=== PATIENT | female | born 1955 | race Caucasian/White ===

== ENCOUNTER → 2016-09-16 | Outpatient (CLI) | payer OTHER ==
--- NOTE | 2016-09-16 15:33 | CARD ---
APPROVED REPORT EXAM: Two-dimensional and M-mode echocardiogram with Doppler and color Doppler. Other Information Quality : GoodHR: 59bpm Rhythm : Bradycardia INDICATION Cardiomaegaly RISK FACTORS Obesity 2D DIMENSIONS RVDd2.3 (2.9-3.5cm)Left Atrium(2D)3.8 (1.6-4.0cm) IVSd0.9 (0.7-1.1cm)Aortic Root(2D)2.6 (2.0-3.7cm) LVDd5.1 (3.9-5.9cm)LVOT Diameter2.2 (1.8-2.4cm) PWd0.8 (0.7-1.1cm)LVDs3.4 (2.5-4.0cm) FS (%) 33.8 %SV78.5 ml LVEF(%)62.3 (>50%) Aortic Valve AoV Peak Corey.144.2cm/sAoV VTI30.7cm AO Peak GR.8.3mmHgLVOT Peak Corey.96.2cm/s LVOT VTI 23.65cmAO Mean GR.4mmHg SAMANTHA (VMAX)2.36ar1UTJ (VTI)2.97cm2 Mitral Valve MV E Pryuzidi497.2cm/sMV DECEL [id number] MV A Namucgmd36.8cm/sMV E Mean Gr.2mmHg MV RXU60umS/A Ratio1.1 MV A Xuybxewk101khEOC (PHT)3.68cm2 TDI E/Lateral E'13.2E/Medial E'16.9 Pulmonary Valve PV Peak Gqklbbyu58.4cm/sPV Peak Grad.3mmHg Pulmonary Vein S1 Tazrjhph63.6cm/sD2 Asihtabk24.6cm/s PVa [id number] LEFT VENTRICLE The left ventricle is normal size. There is normal left ventricular wall thickness. The left ventricu lar systolic function is normal and the ejection fraction is within normal range. The Ejection Fracti on is 55-60%. There is normal LV segmental wall motion. The left ventricular diastolic function and f illing is normal for age. RIGHT VENTRICLE The right ventricle is normal size. There is normal right ventricular wall thickness. The right ventr icular systolic function is normal. ATRIA The left atrium is mildly dilated. The right atrium size is normal. The interatrial septum is intact with no evidence for an atrial septal defect or patent foramen ovale as noted on 2-D or Doppler imagi ng. AORTIC VALVE The aortic valve is mildly thickened. Doppler and Color Flow revealed no significant aortic regurgita tion. There is no significant aortic valvular stenosis. MITRAL VALVE The mitral valve leaflets are thickened. There is no evidence of mitral valve prolapse. There is no m itral valve stenosis. Doppler and Color Flow revealed trace mitral regurgitation. TRICUSPID VALVE Doppler and Color Flow revealed trace tricuspid regurgitation. Unable to calculate PAP at exam time. PULMONIC VALVE Doppler and Color Flow revealed no pulmonic valvular regurgitation. There is no pulmonic valvular austin nosis. GREAT VESSELS The aortic root is normal in size. The ascending aorta is normal in size. The IVC is normal in size a nd collapses >50% with inspiration. PERICARDIAL EFFUSION There is no evidence of significant pericardial effusion. Critical Notification Critical Value: No <Conclusion> The left ventricular systolic function is normal and the ejection fraction is within normal range. Th e Ejection Fraction is 55-60%. There is normal LV segmental wall motion. No significant valvular disease.
== END | disposition home or self-care (01) ==
LOC: ECHO 12:42
PROVIDERS: ATTEND Internal Medicine Cardiovascular Disease
DX: I51.7 Cardiomegaly (principal)
CPT/HCPCS: 93306

== ENCOUNTER → 2018-04-06 | Outpatient (CLI) | payer OTHER, BC ==
--- NOTE | 2018-04-06 16:57 | KCIC ---
EXAMINATION: Magnetic resonance imaging (MRI) of the cervical spine without contrast 04/06/2018 3:30 PM HISTORY: Right shoulder pain TECHNIQUE: Multiplanar multi-weighted MRI of the cervical spine was performed without intravenous contrast using the standard cervical spine protocol. Contrast information: None administered COMPARISON: None available. FINDINGS: Evaluation is degraded by motion artifact. The alignment of the cervical spine is normal. Vertebral bodies demonstrate normal signal intensity on all sequences. No acute fracture is identified; however, if trauma is suspected, a CT scan would be a more sensitive examination for fractures. The craniocervical junction is normal. The visualized portions of the skull base and the posterior fossa are normal. Moderate mucosal thickening involving the sphenoid sinus The spinal cord demonstrates normal signal intensity on all sequences. Intervertebral disks have normal height and signal intensity. There are no annular fissures identified. No soft tissue abnormality is identified. Normal signal voids are present in the vertebral arteries. C2-C3: There is minimal disc bulge. There is mild facet arthropathy. There is no uncovertebral joint disease. There is no neuroforaminal stenosis. There is no spinal canal stenosis. C3-C4: There is minimal disc bulge. There is moderate right and mild left facet arthropathy. There is mild uncovertebral joint disease. There is mild right neuroforaminal stenosis. There is no spinal canal stenosis. C4-C5: There is a posterior disc osteophyte complex asymmetric to the left. There is mild facet arthropathy. There is mild uncovertebral joint disease. There is mild left neuroforaminal stenosis. There is no spinal canal stenosis. C5-C6: There is a posterior disc osteophyte complex asymmetric to the left with a left central disc extrusion. There is mild facet arthropathy. There is mild to moderate uncovertebral joint disease. There is mild to moderate left and mild right neuroforaminal stenosis. There is no spinal canal stenosis. C6-C7: There is a posterior discussed by complex. There is mild facet arthropathy. There is mild to moderate uncovertebral joint disease. There is mild to moderate right and mild left neuroforaminal stenosis. There is no spinal canal stenosis. C7-T1: The disk is normal in configuration. There is no facet arthropathy. There is no uncovertebral joint disease. There is no neuroforaminal stenosis. There is no spinal canal stenosis. T1-T2: There is a mild disc bulge asymmetric to the left. Mild facet arthropathy. No significant neuroforaminal or spinal canal stenosis. IMPRESSION: Mild degenerative changes of the cervical spine as described in detail above. Electronically signed by: Loly Conte MD (04/06/2018 4:54 PM) [email or web address]
== END | disposition home or self-care (01) ==
LOC: KCIC MRI 15:05
PROVIDERS: ATTEND Orthopaedic Surgery
DX: M47.892 Other spondylosis, cervical region (principal); M48.02 Spinal stenosis, cervical region; M25.78 Osteophyte, vertebrae; M12.88 Other specific arthropathies, not elsewhere classified, other specified site
CPT/HCPCS: 72141

== ENCOUNTER → 2018-04-14 | Outpatient (CLI) | payer BC, OTHER ==
--- NOTE | 2018-04-14 17:13 | RAD ---
EXAM: MRI right shoulder DATE: 04/14/2018 3:30 PM COMPARISON: None INDICATION: RIGHT SHOULDER PAIN X 3 MONTHS, limited range of motion TECHNIQUE: Multiplanar multisequence MR imaging of the right shoulder was performed without IV contrast. FINDINGS: No right humeral joint effusion. Subacromial subdeltoid bursal distention for full-thickness rotator cuff tear described below. Mild AC joint degenerative changes are seen. There is a full-thickness, full width tear of the supraspinatus tendon and full-thickness partial width tear of the infraspinatus tendon measuring approximately 3.5 cm in AP dimension. There is tendinous retraction to the level of the glenoid. There is moderate increased signal within the distal infraspinatus muscle belly consistent with moderate tendinosis. There is moderate fatty atrophy of the supraspinatus and infraspinatus muscle bellies. Mild fatty atrophy of the teres minor. The intra-articular long head biceps tendon is not well visualized, possibly severe tendinosis or partial tear. The extra-articular long head biceps tendon is seen within the bicipital groove. Mild degeneration of the labrum is suspected although no discrete labral tear is identified.. No evidence of fracture or AVN. Of note the humeral head is high riding. IMPRESSION: 1. Full-thickness, full width tear of the supraspinatus and full-thickness, partial width tear of the infraspinatus tendons with retraction to the level of the glenoid. 2. Severe tendinosis versus partial tear of the intra-articular long head biceps tendon. 3. Subacromial-subdeltoid bursal fluid from full-thickness rotator cuff tear. Electronically signed by: Mal Whalen MD (04/14/2018 5:10 PM) [email or web address]
== END | disposition home or self-care (01) ==
LOC: MRI 15:09
PROVIDERS: ATTEND Orthopaedic Surgery
DX: M75.101 Unspecified rotator cuff tear or rupture of right shoulder, not specified as traumatic (principal)
CPT/HCPCS: 73221

== ENCOUNTER → 2021-04-13 | Outpatient (CLI) | payer OTHER ==
[~2021-04-13] MED LIST: ALBU2.5V8 INH; CETI10TA74 PO; DICL20GE TP; FAMO-63 PO; FLUT16SP NS; FLUT1DIS5 IH; IBUP-1060 PO; ICOS1CAP PO; LEVO112T49 PO; MONT10TA49 PO; TRAZ-123 PO
[2021-04-13 08:57] LABS: BASO % 1 % (0-3); EOS # 0.5 x10^3/uL (0.0-0.7); EOS % 8 % (0-3); HEMATOCRIT 36.4 % (36.0-47.0); HEMOGLOBIN 12.7 g/dL (12.0-15.5); LYMPH # 2.5 x10^3/uL (1.0-4.8); LYMPH % 38 % (24-48); MEAN CORPUSCULAR HEMOGLOBIN 31 pg (25-35); MEAN CORPUSCULAR HGB CONC 35 g/dL (31-37); MEAN CORPUSCULAR VOLUME 87 fL (79-100); MONO # 0.6 x10^3/uL (0.0-1.1); MONO % 9 % (0-9); NEUT % 45 % (31-73); PLATELET COUNT 236 x10^3/uL (140-400); RED BLOOD COUNT 4.16 x10^6/uL (3.50-5.40); RED CELL DISTRIBUTION WIDTH 13.1 % (11.5-14.5); WHITE BLOOD COUNT 6.6 x10^3/uL (4.0-11.0)
[2021-04-13 09:05] LABS: PROTHROMBIN TIME PATIENT 12.5 SEC (11.7-14.0)
[2021-04-13 09:09] LABS: ALBUMIN 3.4 g/dL (3.4-5.0); CALCIUM 8.5 mg/dL (8.5-10.1); CREATININE 0.8 mg/dL (0.6-1.0); GFR 71.8; POTASSIUM 3.3 mmol/L (3.5-5.1)
--- NOTE | 2021-04-13 11:38 | EKG ---
[facility] [address] [place] [address] Test Date: 2021-04-13 Test Time: 11:39:44 Pat Name: VALDO ERICKSON Department: Room: Gender: F [employer]ified [employer] Expert: [place] : 1955 Requested By: KRYSTA CASTORENA Order Number: [id number] Reading MD: Teja Williamson Measurements Intervals [place] Rate: 54 P: 59 AK: 146 QRS: 41 QRSD: 92 T: 80 QT: 444 QTc: 423 Interpretive Statements SINUS RHYTHM MILD T WAVE CHANGES Electronically Signed On 04-15-2021 14:22:12 CDT by Teja Williamson
--- NOTE | 2021-04-14 14:00 | RAD ---
EXAM: XR CHEST 2V 04/13/2021 11:56 AM CLINICAL INDICATION: Joint rehabilitation class, hypertension and asthma, preop evaluation. COMPARISON: None TECHNIQUE: PA and lateral views of the chest FINDINGS: The heart and mediastinum are normal. Lungs are well-expanded and clear. No consolidatio n, pleural effusion, or pneumothorax. Pulmonary vascularity is normal. There is mild thoracolumbar d egenerative disc disease. A right shoulder prosthesis is partially visualized. There is some heteroto pic ossification at the inferior right axillary recess. IMPRESSION: No acute cardiopulmonary abnormality. Electronically signed by: Amy Garcia MD (04/14/2021 10:11 AM) [id number]
== END ==
LOC: SURGPAT 11:46
PROVIDERS: ATTEND Orthopaedic Surgery
DX: Z01.818 Encounter for other preprocedural examination (principal); R94.31 Abnormal electrocardiogram [ECG] [EKG]; M17.11 Unilateral primary osteoarthritis, right knee
CPT/HCPCS: 36415; 71046; 80048; 82040; 82306; 83036; 85025; 85610; 85651; 85730; 87641; 93005

== ENCOUNTER 2021-05-05 06:20 | Inpatient (IN) | payer OTHER ==
[2021-04-20 16:07] VITALS: BP 118/54
[2021-05-04] MEDS: IV NORMAL SALINE 1000ML BAG 1,000 ML IV SCH (20:00)
[2021-05-05] VITALS (11 sets, daily range): BP systolic 91–128; BP diastolic 51–79
[~2021-05-05] VITALS: Ht 147.3 cm; Wt 70.9 kg
[~2021-05-05 06:20] MED LIST changes: +0.9 % SODIUM CHLORIDE 10 ML DISP.SYRIN. IV PRN; +ACETAMINOPHEN 500 MG TABLET PO PRN; +CALCIUM CARBONATE 500 MG TAB.CHEW PO PRN; +DEXTROSE 50% 25 GM / 50ML DISP.SYRIN. IV PRN; +HYDROmorphone 2 MG/ML VIAL IVP PRN; +IV RINGERS,LACTATED 1000ML 1,000 ML IV SCH; +MELOXICAM 7.5 MG TABLET PO PRN; +METOCLOPRAMIDE HCL 10 MG/2 ML VIAL. IVP PRN; +MORPHINE SULFATE 2 MG/ML INJ. IVP PRN; +PROCHLORPERAZINE 10 MG/2 ML VIAL. IVP PRN; +PROCHLORPERAZINE 5 MG TABLET. PO PRN; +TRANEXAMIC ACID 1,000 MG in IV NS 50ML -- 1ST BAG INJ ONE; +TV=62ml MORPHINE 5 MG, KETOROLAC 30 MG, ROPIV, EPI INT ART ONE; +ZOLPIDEM 5 MG TABLET. PO PRN; +diphenhydrAMINE 50 MG/ML VIAL IVP PRN; +fentaNYL PF VIAL 100 MCG/2 ML VIAL IVP PRN
[2021-05-05] MEDS ORDERED: PANT40TA77 PO (06:45)
[2021-05-05] MEDS ORDERED: PROPOFOL 10 MG/ML (20ML) VIAL. IV ONE (07:07)
[2021-05-05] MEDS ORDERED: LIDOCAINE 2% PF 5 ML VIAL. ONE (07:07)
[2021-05-05] MEDS ORDERED: fentaNYL PF VIAL 250 MCG/5 ML VIAL ONE (07:07)
[2021-05-05] MEDS ORDERED: ROCURONIUM 50 MG/5 ML VIAL. ONE (07:16)
[2021-05-05] MEDS ORDERED: GLYCOPYRROLATE 1 MG/5 ML VIAL. ONE (07:35)
[2021-05-05] MEDS ORDERED: TRANEXAMIC ACID 1,000 MG/10 ML VIAL. ONE (07:36)
[2021-05-05] MEDS ORDERED: TRANEXAMIC ACID in NS IVPB 0 ML ONE (07:36)
[2021-05-05] MEDS ORDERED: TRANEXAMIC ACID 1,000 MG in IV NS 50ML -- 2ND BAG INJ ONE (08:00)
[2021-05-05] MEDS ORDERED: TRANEXAMIC ACID 1,000 MG/10 ML VIAL. TOP ONE (08:15)
[2021-05-05] MEDS ORDERED: ONDANSETRON PF 4 MG/2 ML VIAL. ONE ×2 (08:20→09:21)
[2021-05-05] MEDS ORDERED: ROPIVacaine 0.5% PF 20 ML VIAL. ONE (08:36)
[2021-05-05] MEDS ORDERED: KETOROLAC 30 MG/ML VIAL. ONE (09:21)
[2021-05-05] MEDS ORDERED: NEOSTIGMINE METHYLSULFATE 5 MG/5 ML SYRINGE. ONE (09:22)
[2021-05-05] MEDS ORDERED: 0.9 % SODIUM CHLORIDE 20 ML VIAL. IJ ONE ×3 (09:27→09:28)
[2021-05-05] MEDS ORDERED: SEVOFLURANE 61 TO 120 MINUTES. IH ONE (09:45)
[2021-05-05] MEDS ORDERED: MEPERIDINE PF 25 MG/ML VIAL. ONE (09:57)
--- NOTE | 2021-05-05 10:05 | PDOC4 ---
OPERATIVE NOTE: DATE OF PROCEDURE: May 05, 2021 PROCEDURE: Right total knee arthroplasty PREOPERATIVE DIAGNOSIS: Right knee osteoarthritis POSTOPERATIVE DIAGNOSIS: Same SURGEON: Krysta Ellis DO HAND LAMINATOR: None ANESTHESIA: General with periarticular injection COMPLICATIONS: None EBL: <50cc SPECIMEN: None DISPOSITION: To PACU stable. GROSS FINDINGS: Degenerative arthritis tricompartmental varus pattern IMPLANT SPECIFICATIONS: [employer] Legion 3 Oxinium CR femur 2 tibia 9 mm CR tibial poly cement with gent DESCRIPTION OF PROCEDURE: The patient was seen in the preoperative holding area. The Surgical site was marked. Consent was verified. Patient received preoperative antibiotics and was taken back to the operating room. Once in the operating room, the department of anesthesia administered anesthetic as noted above. Timeout was observed. Once adequately anesthetized, the tourniquet was placed on the operative thigh. Sterile prep and drape was performed of the operative extremity. An Esmarch was used to exsanguinate the limb, and the tourniquet was inflated. At this point, a 15 cm anterior midline incision was made. Soft tissue dissection was carried out sharply. Medial parapatellar arthrotomy was developed. The patella was everted. All visual osteophytes, meniscus, ACL as well as medial and lateral periosteal flaps were created. Robotic trackers were placed in the tibia and femur as well as confirmation pins in the femur and tibia. Hip rotation center was obtained through movement. At this point the distal femur and proximal tibia were mapped. The surgical plan was developed. Using the robotic bur the distal femur resection was performed. The rotation of the distal femur was set. The appropriate sized block was pinned in place and the anterior resection was confirmed by robotic tracking. At this point the 4-in-1 cuts were made while protecting the surrounding soft tissues. At this point the proximal tibia resection guide was put in place using the robotic tracking and it was pinned. With the PCL retractor and 2 bent Hohmann's the proximal tibial resection was performed. Flexion and extension gaps were assessed and symmetric. Trial implants were placed and the knee was run through her motion while being tracked with both varus and valgus stress to confirm symmetric gapping. The tibia rotation was marked and tibial preparation was completed after removal of all positional guidepins. The patella was not resected. With trial components in place, range of motion was excellent without patellar liftoff or subluxation and no varus or valgus instability. Full extension and flexion to 140 degrees was noted. We then finished both the femur and the tibia. All trial components were removed. Copious irrigation was run through the knee, and it was prepped for cement. Periarticular injection was given. Final components were cemented into place, cementing first the tibia, followed by the femur and then the patella. All excess cement was removed. The cement was allowed to harden with the knee in full extension with a trial tibial spacer in place. TXA placed for 5 minutes. The final tibial polyethylene was then clipped into place, and a final range of motion was checked and found to be excellent. Copious irrigation was again run through the knee. It was suctioned dry. The tourniquet was deflated, and hemostasis was obtained with pressure and electrocautery. The parapatellar arthrotomy was closed, TXA placed, and layered soft tissue closure. A large bulky dressing was applied. Anesthesia was reversed, and the patient was transferred to postop in apparent stable conditio n. DISPOSITION: The patient will be discharged to the general medical floor once recovered in the PACU. Pt. will begin on physical therapy protocol, postoperative medical management, and DVT prophylaxis. PROGNOSIS: Good KRYSTA ELLIS DO May 05, 2021 10:05
[2021-05-05] MEDS ORDERED: MEPERIDINE PF 25 MG/ML VIAL. IV ONE (10:15)
--- NOTE | 2021-05-05 10:39 | RAD ---
XR KNEE_RT 1-2 VIEWS History: Reason: Patient in PACU POST OP / Spl. Instructions: / History: Comparison: 03/27/2021 Technique: Portable AP and lateral views of the right knee FINDINGS/ IMPRESSION: Postsurgical features from right total knee arthroplasty. Expected positioning of the distal femur an d proximal tibial components without evidence of complication. Alignment is anatomic. Expected subcut aneous air and fluid consistent with recent instrumentation. Electronically signed by: Dmitry Fuller MD (05/05/2021 10:37 AM) [id number]
[2021-05-05] MEDS: ONDANSETRON ODT 4 MG TAB.RAPDIS. PO SCH ×3 (12:00→23:59)
[2021-05-05] MEDS ORDERED: ONDANSETRON ODT 4 MG TAB.RAPDIS. PO PRN (12:00)
[2021-05-05] MEDS ORDERED: ONDANSETRON PF 4 MG/2 ML VIAL. IVP PRN (12:00)
[2021-05-05] MEDS: ONDANSETRON PF 4 MG/2 ML VIAL. IVP SCH ×3 (12:00→23:59)
--- NOTE | 2021-05-05 12:15 | NUR ---
received fro recovery. she is denying pain at this time. states that she is having numbness and tingling. she has decreased sensation in right calf area. up to the bathroom and is unsteady in gait. up in recliner. history completed Physical therapy here
[2021-05-05] MEDS ORDERED: FERROUS SULFATE 325 MG TABLET. PO SCH (17:00)
--- NOTE | 2021-05-05 18:00 | NUR ---
Lidya states that she is beginning to have feeling behind her right knee. she has ambulated to the bathroom; gait is more steady at this time. tolerating food well. she was medicated with oxycodone.
[2021-05-05] MEDS: FERROUS SULFATE 325 MG TABLET. PO SCH (18:30)
[2021-05-05] MEDS: oxyCODONE IR 5 MG TABLET PO PRN (18:34)
[2021-05-05] MEDS ORDERED: FLU VACC QUAD 21-22 (6MOS+) PF 0.5 ML SYRINGE. VAX IM ONE (19:45)
[2021-05-05] MEDS: IV NORMAL SALINE 1000ML BAG 1,000 ML IV SCH (20:00)
[2021-05-05] MEDS ORDERED: FAMOTIDINE 20 MG TABLET. PO PRN (20:45)
[2021-05-05] MEDS: ALBUTEROL SULFATE 2.5 MG/3 ML NEBU. NEB SCH (21:00)
[2021-05-05] MEDS ORDERED: ASPIRIN CHEWABLE 81 MG TABLET. PO SCH (21:00)
[2021-05-05] MEDS ORDERED: NON FORMULARY ITEM (Fluticasone/Salmeterol (Advair 500-50 Diskus) 2 INH) IH SCH (21:00)
[2021-05-05] MEDS: BUDESONIDE 0.5 MG/2 ML NEBU. NEB SCH (21:00)
[2021-05-05] MEDS ORDERED: NON FORMULARY ITEM (Icosapent Ethyl (Vascepa) 1 GM) PO SCH (21:00)
[2021-05-05] MEDS: ASCORBIC ACID 500 MG TABLET PO SCH (21:06)
[2021-05-05] MEDS: MONTELUKAST SODIUM 10 MG TABLET. PO SCH (21:06)
[2021-05-05] MEDS: traZODone 100 MG TABLET. PO SCH (21:06)
[2021-05-05] MEDS: ASPIRIN ENTERIC COATED 81 MG TABLET.DR. PO SCH (21:06)
[2021-05-06 03:00] VITALS: BP 107/44
[2021-05-06] MEDS ORDERED: MAGNESIUM HYDROXIDE 2,400 MG/30 ML ORAL.SUSP. PO PRN (06:00)
[2021-05-06] MEDS: ONDANSETRON ODT 4 MG TAB.RAPDIS. PO SCH (06:00)
[2021-05-06] MEDS: ONDANSETRON PF 4 MG/2 ML VIAL. IVP SCH (06:00)
[2021-05-06 06:30] VITALS: BP 97/52
[2021-05-06] MEDS: oxyCODONE IR 5 MG TABLET PO PRN ×4 (07:25→19:55)
[2021-05-06] MEDS: PANTOPRAZOLE 40 MG TABLET.DR. PO SCH (07:25)
[2021-05-06] MEDS: LEVOTHYROXINE 112 MCG TABLET PO SCH (07:25)
[2021-05-06] MEDS: ALBUTEROL SULFATE 2.5 MG/3 ML NEBU. NEB SCH ×4 (07:27→19:54)
[2021-05-06] MEDS: BUDESONIDE 0.5 MG/2 ML NEBU. NEB SCH ×2 (07:27→19:54)
[2021-05-06] MEDS: ASPIRIN ENTERIC COATED 81 MG TABLET.DR. PO SCH ×2 (07:46→21:02)
[2021-05-06] MEDS: MELOXICAM 7.5 MG TABLET PO SCH (07:47)
[2021-05-06] MEDS: SENNOSIDES/DOCUSATE 8.6/50MG TABLET. PO SCH (07:47)
[2021-05-06] MEDS: MULTIVITAMIN with MINERAL TABLET. PO SCH (07:48)
[2021-05-06] MEDS: ASCORBIC ACID 500 MG TABLET PO SCH ×2 (07:48→21:02)
[2021-05-06] MEDS: FERROUS SULFATE 325 MG TABLET. PO SCH ×2 (07:48→15:37)
[2021-05-06 08:58] LABS: HEMATOCRIT 31.3 % (36.0-47.0); HEMOGLOBIN 10.8 g/dL (12.0-15.5)
[2021-05-06 10:18] VITALS: BP 79/50
--- NOTE | 2021-05-06 11:17 | NUR ---
Patient this morning is having some orthostatic BP issues with dizziness/nausea/headache. BP 100/41 during OT with dizziness present. BP prior to PT 79/50 with dizziness and a headache. Patient was also appeared pale and was starting to sweat. Went to give bolus of fluids due to low BP but IV was blown. New IV started in left hand and bolus of 200 ml given to help improve her BP. Will continue to give IV fluids during the day today to help stabilize her BP. Dr Perez notified who rounded for [facility] this AM. Will continue to monitor.
[2021-05-06 12:11] VITALS: BP 91/46
[2021-05-06 15:09] VITALS: BP 122/53
[2021-05-06] MEDS ORDERED: BISACODYL 10 MG SUPP.RECT. PR PRN (16:00)
[2021-05-06 18:40] VITALS: BP 117/56
[2021-05-06] MEDS: IV NORMAL SALINE 1000ML BAG 1,000 ML IV SCH (19:55)
[2021-05-06] MEDS: MONTELUKAST SODIUM 10 MG TABLET. PO SCH (21:02)
[2021-05-06] MEDS: traZODone 100 MG TABLET. PO SCH (21:02)
[2021-05-07] MEDS: oxyCODONE IR 5 MG TABLET PO PRN ×4 (01:45→15:59)
[2021-05-07 05:00] VITALS: BP 116/46
[2021-05-07] MEDS: PANTOPRAZOLE 40 MG TABLET.DR. PO SCH (05:40)
[2021-05-07] MEDS: LEVOTHYROXINE 112 MCG TABLET PO SCH (05:40)
[2021-05-07] MEDS: ALBUTEROL SULFATE 2.5 MG/3 ML NEBU. NEB SCH ×4 (07:10→20:19)
[2021-05-07] MEDS: BUDESONIDE 0.5 MG/2 ML NEBU. NEB SCH ×2 (07:11→20:19)
--- NOTE | 2021-05-07 08:30 | NUR ---
CONTINUES TO HAVE ORTHOSTATIC BLOOD PRESSURE. SHE BECOMES DIZZY WITH SITTING TO STANDING. CONTINUES TO FEELS WEAK. RESTS IN RECLINER. AT BEDSIDE.
[2021-05-07 09:18] VITALS: BP 104/59
[2021-05-07] MEDS: MULTIVITAMIN with MINERAL TABLET. PO SCH (09:19)
[2021-05-07] MEDS: FERROUS SULFATE 325 MG TABLET. PO SCH ×2 (09:19→15:58)
[2021-05-07] MEDS: ASCORBIC ACID 500 MG TABLET PO SCH ×2 (09:19→21:22)
[2021-05-07] MEDS: ASPIRIN ENTERIC COATED 81 MG TABLET.DR. PO SCH ×2 (09:19→21:22)
[2021-05-07] MEDS: MELOXICAM 7.5 MG TABLET PO SCH (09:20)
[2021-05-07] MEDS: SENNOSIDES/DOCUSATE 8.6/50MG TABLET. PO SCH (09:20)
[2021-05-07 09:38] LABS: HEMATOCRIT 32.3 % (36.0-47.0); HEMOGLOBIN 10.8 g/dL (12.0-15.5)
--- NOTE | 2021-05-07 11:15 | NUR ---
DR. CASTORENA HERE. STATES PATIENT CONTINUES TO BE ORTHOSTATIC. WILL GIVE ANOTHER BOLUS OF FLUIDS
[2021-05-07 11:30] VITALS: BP_SYST 103; BP_SYST 104; BP_SYST 112; BP_DIAS 55; BP_DIAS 56; BP_DIAS 57
[2021-05-07] MEDS ORDERED: IV NORMAL SALINE 1000ML BAG 1,000 ML IV ONE (12:00)
--- NOTE | 2021-05-07 12:26 | NUR ---
IV FLUID INFUSING AT 250 [address]. WHEN STOOD TO GO THE BATHROOM; REMAINS DIZZY.
[2021-05-07 15:46] VITALS: BP 112/63
[2021-05-07] MEDS: IV NORMAL SALINE 1000ML BAG 1,000 ML IV SCH ×2 (17:08→21:23)
[2021-05-07 19:00] VITALS: BP 143/58
--- NOTE | 2021-05-07 19:00 | NUR ---
CONTINUES TO BE DIZZY WHEN SITTING TO STANDING. NO SYMPTOMS FROM LYING TO STANDING. WILL CONTINUE IV FLUIDS THROUGH NIGHT. TRANSFERRED TO ROOM 442
[2021-05-07] MEDS: MONTELUKAST SODIUM 10 MG TABLET. PO SCH (21:22)
[2021-05-07] MEDS: traZODone 100 MG TABLET. PO SCH (21:22)
[2021-05-07 23:00] VITALS: BP 117/55
[2021-05-08] VITALS (7 sets, daily range): BP systolic 98–119; BP diastolic 45–62
[2021-05-08] MEDS: ALBUTEROL SULFATE 2.5 MG/3 ML NEBU. NEB SCH ×4 (01:30→21:34)
[2021-05-08] MEDS: IV NORMAL SALINE 1000ML BAG 1,000 ML IV SCH (02:23)
[2021-05-08] MEDS: oxyCODONE IR 5 MG TABLET PO PRN ×4 (02:41→20:16)
[2021-05-08] MEDS: LEVOTHYROXINE 112 MCG TABLET PO SCH (06:01)
[2021-05-08] MEDS: BUDESONIDE 0.5 MG/2 ML NEBU. NEB SCH ×2 (07:38→21:35)
[2021-05-08] MEDS: FERROUS SULFATE 325 MG TABLET. PO SCH ×2 (08:24→17:08)
[2021-05-08] MEDS: MULTIVITAMIN with MINERAL TABLET. PO SCH (08:24)
[2021-05-08] MEDS: PANTOPRAZOLE 40 MG TABLET.DR. PO SCH (08:25)
[2021-05-08] MEDS: MELOXICAM 7.5 MG TABLET PO SCH (08:25)
[2021-05-08] MEDS: SENNOSIDES/DOCUSATE 8.6/50MG TABLET. PO SCH (08:25)
[2021-05-08] MEDS: ASPIRIN ENTERIC COATED 81 MG TABLET.DR. PO SCH ×2 (08:25→20:16)
[2021-05-08] MEDS: ASCORBIC ACID 500 MG TABLET PO SCH ×2 (08:25→20:15)
--- NOTE | 2021-05-08 08:56 | PDOC1 ---
History and Physical Date of Admission Date of Admission DATE: 05/08/21 TIME: 08:49 Identification/Chief Complaint Chief Complaint tachycardia, hypotension Source Source: Chart review, Patient History of Present Illness History of Present Illness CONSULT pt had elective knee surgery on 05.05, has been doing OK post op with pain, but has had relative low blood pressure for her, BP in 110 systolic she reports as low. And HR this AM is 101 at rest. she had months of prior knee injection per Dr. Sparrow, and elected to proceed withknee replacement, she has not been hospitalized for about 30 years since she had her gallbladder out, has asthma, thyroid, well controlled, compliant with meds she is retired, hoping to go home soon, can transfer and use walker, walked 30+ feet Past Medical History Past Medical History allergies Cardiovascular: No pertinent hx Pulmonary: Asthma Heme/Onc: No pertinent hx Psych: No pertinent hx Musculoskeletal: Osteoarthritis Rheumatologic: No pertinent hx ENT: No pertinent hx Endocrine: Hypothyroidism Past Surgical History Past Surgical History: Cholecystectomy, Other (knee, right shoulder) Family History Family History: No Significant Family History: Parent, Grandparents Social History Smoke: No ALCOHOL: none Drugs: None Current Medications Current Medications Current Medications Morphine Sulfate 5 mg/Ketorolac Tromethamine 30 mg/Ropivacaine 60 ml/Epinephrine HCl 0.5 mg/ Miscellaneous 63 ml @ 63 mls/hr 1X PERIOP ONCE INT ART Last administered on 05/05/21at 09:32; Start 05/05/21 at 06:00; Stop 05/05/21 at 06:59; Status DC Fentanyl Citrate (Fentanyl 2ml Vial) 25 mcg PRN Q5MIN PRN IVP MILD PAIN 1-3; Start 05/05/21 at 06:00; Stop 05/05/21 at 16:00; Status DC Fentanyl Citrate (Fentanyl 2ml Vial) 50 mcg PRN Q5MIN PRN IVP MODERATE PAIN 4- 6; Start 05/05/21 at 06:00; Stop 05/05/21 at 16:00; Status DC Morphine Sulfate (Morphine Sulfate) 1 mg PRN Q10MIN PRN IVP SEVERE PAIN 7-10; Start 05/05/21 at 06:00; Stop 05/05/21 at 16:00; Status DC Ringer's Solution 1,000 ml @ 30 mls/hr Q24H IV Last administered on 05/05/21at 06:56; Start 05/05/21 at 06:00; Stop 05/05/21 at 17:59; Status DC Hydromorphone HCl (Dilaudid) 0.5 mg PRN Q10MIN PRN IVP SEVERE PAIN 7-10, 2nd CHOICE; Start 05/05/21 at 06:00; Stop 05/05/21 at 16:00; Status DC Prochlorperazine Edisylate (Compazine) 5 mg PACU PRN PRN IVP NAUSEA, MRX1; Start 05/05/21 at 06:00; Stop 05/05/21 at 16:00; Status DC Meloxicam (Mobic) 15 mg 1X PREOP PRN PO PRIOR TO PROCEDURE Last administered on 05/05/21at 06:59; Start 05/05/21 at 06:00; Stop 05/05/21 at 11:38; Status DC Acetaminophen (Tylenol) 1,000 mg 1X PREOP PRN PO PRIOR TO PROCEDURE Last administered on 05/05/21at 06:59; Start 05/05/21 at 06:00; Stop 05/05/21 at 11:38; Status DC Cefazolin Sodium/ Dextrose 50 ml @ 100 mls/hr 1X PREOP PRN IV PRIOR TO PROCEDURE; Start 05/05/21 at 06:00; Stop 05/05/21 at 11:38; Status DC Tranexamic Acid 50 ml @ 50 mls/hr 1X PERIOP ONCE INJ ; Start 05/05/21 at 06:00 ; Stop 05/05/21 at 06:59; Status DC Tranexamic Acid 50 ml @ 50 mls/hr 1X PERIOP ONCE INJ ; Start 05/05/21 at 08:00; Stop 05/05/21 at 08:59; Status DC Ascorbic Acid (Vitamin C) 500 mg BID PO Last administered on 05/08/21at 08:25; Start 05/05/21 at 21:00 Aspirin (Aspirin Chewable) 81 mg BID PO ; Start 05/05/21 at 21:00; Status Cancel Ferrous Sulfate (Feosol) 325 mg BIDWMEALS PO ; Start 05/05/21 at 17:00; Status Cancel Fentanyl Citrate (Fentanyl 2ml Vial) 25 mcg PRN Q1HR PRN IVP PAIN, 2nd CHOICE L ast administered on 05/06/21at 21:06; Start 05/04/21 at 20:00 Diphenhydramine HCl (Benadryl) 25 mg PRN Q6HRS PRN IVP ITCHING; Start 05/04/21 at 20:00 Multivitamins (Thera M Plus) 1 tab DAILY PO Last administered on 05/08/21at 08:24; Start 05/06/21 at 09:00 Senna/Docusate Sodium (Senna Plus) 1 tab DAILY PO Last administered on 05/08/21at 08:25; Start 05/06/21 at 09:00 Ferrous Sulfate (Feosol) 325 mg BIDWMEALS PO Last administered on 05/08/21at 08:24; Start 05/05/21 at 17:00 Sodium Chloride 1,000 ml @ 40 mls/hr Q24H IV Last administered on 05/08/21at 02:23; Start 05/04/21 at 20:00 Prochlorperazine Maleate (Compazine) 10 mg PRN Q4HRS PRN PO Nausea/vomiting, 2nd choice; Start 05/04/21 at 20:00 Metoclopramide HCl (Reglan Vial) 10 mg PRN Q4HRS PRN IVP NAUSEA/VOMITING, 3rd CHOICE; Start 05/04/21 at 20:00 Magnesium Hydroxide (Milk Of Magnesia) 2,400 mg 1X PRN PRN PO CONSTIPATION; Start 05/06/21 at 06:00; Stop 05/06/21 at 06:01; Status DC Bisacodyl (Dulcolax Supp) 10 mg 1X PRN PRN OR CONSTIPATION; Start 05/06/21 at 16:00; Stop 05/06/21 at 16:01; Status DC Zolpidem Tartrate (Ambien) 5 mg PRN QHS PRN PO INSOMNIA, MAY REPEAT IN 1HR; Start 05/04/21 at 20:00 Calcium Carbonate/ Glycine (Tums) 500 mg PRN QID PRN PO INDIGESTION; Start 05/04/21 at 20:00 Sodium Chloride (Normal Saline Flush) 10 ml QSHIFT PRN IV AFTER MEDS AND BLOOD DRAWS; Start 05/04/21 at 20:00 Meloxicam (Mobic) 15 mg DAILY PO Last administered on 05/08/21at 08:25; Start 05/06/21 at 09:00 Ondansetron HCl (Zofran) 4 mg Q6HRS IVP ; Start 05/05/21 at 12:00; Stop 05/06/21 at 06:01; Status DC Ondansetron HCl (Zofran Odt) 4 mg Q6HRS PO Last administered on 05/05/21at 18:30; Start 05/05/21 at 12:00; Stop 05/06/21 at 06:01; Status DC Ondansetron HCl (Zofran) 4 mg PRN Q6HRS PRN IVP Nausea/vomiting, 1st choice; Start 05/05/21 at 12:00 Ondansetron HCl (Zofran Odt) 4 mg PRN Q6HRS PRN PO Nausea/vomiting, 1st choice; Start 05/05/21 at 12:00 Oxycodone HCl (Roxicodone) 5 mg PRN Q4HRS PRN PO PAIN Last administered on 05/08/21at 08:25; Start 05/04/21 at 20:00 Dextrose (Dextrose 50%-Water Syringe) 12.5 gm PRN Q15MIN PRN IV SEE COMMENTS; Start 05/04/21 at 20:00 Cefazolin Sodium/ Dextrose 50 ml @ 100 mls/hr Q6H IV Last administered on 05/06/21at 02:28; Start 05/05/21 at 12:00; Stop 05/06/21 at 03:29; Status DC Cefazolin Sodium/ Dextrose 50 ml @ 100 mls/hr 1X ONCE IV ; Start 05/05/21 at 06:00; Stop 05/05/21 at 06:29; Status UNV Aspirin (Ecotrin) 81 mg BID PO Last administered on 05/08/21at 08:25; Start 05/05/21 at 21:00; Stop 06/05/21 at 20:59 Fentanyl Citrate (Fentanyl 5ml Vial) 250 mcg STK-MED ONCE .ROUTE ; Start 05/05/21 at 07:07; Stop 05/05/21 at 07:07; Status DC Propofol (Diprivan) 200 mg STK-MED ONCE IV ; Start 05/05/21 at 07:07; Stop 05/05/21 at 07:07; Status DC Lidocaine HCl (Lidocaine Pf 2% Vial) 5 ml STK-MED ONCE .ROUTE ; Start 05/05/21 at 07:07; Stop 05/05/21 at 07:07; Status DC Rocuronium [place] (Zemuron) 50 mg STK-MED ONCE .ROUTE ; Start 05/05/21 at 07:16; Stop 05/05/21 at 07:16; Status DC Glycopyrrolate (Robinul) 1 mg STK-MED ONCE .ROUTE ; Start 05/05/21 at 07:35; Stop 05/05/21 at 07:35; Status DC Tranexamic Acid (Cyklokapron) 1,000 mg STK-MED ONCE .ROUTE ; Start 05/05/21 at 07:36; Stop 05/05/21 at 07:37; Status Cancel Tranexamic Acid 0 ml @ As Directed STK-MED ONCE .ROUTE ; Start 05/05/21 at 07:36; Stop 05/05/21 at 07:36; Status DC Tranexamic Acid 0 ml @ As Directed STK-MED ONCE .ROUTE ; Start 05/05/21 at 07:36; Stop 05/05/21 at 07:36; Status DC Tranexamic Acid (Cyklokapron) 2,000 mg 1X ONCE TOP ; Start 05/05/21 at 08:15; Stop 05/05/21 at 21:11; Status DC Ondansetron HCl (Zofran) 4 mg STK-MED ONCE .ROUTE ; Start 05/05/21 at 08:20; Stop 05/05/21 at 08:20; Status DC Ropivacaine (Naropin 0.5%) 20 ml STK-MED ONCE .ROUTE ; Start 05/05/21 at 08:36; Stop 05/05/21 at 08:36; Status DC Ketorolac Tromethamine (Toradol 30mg Vial) 30 mg STK-MED ONCE .ROUTE ; Start 05/05/21 at 09:21; Stop 05/05/21 at 09:21; Status DC Ondansetron HCl (Zofran) 4 mg STK-MED ONCE .ROUTE ; Start 05/05/21 at 09:21; S top 05/05/21 at 09:21; Status DC Neostigmine [place] (Neostigmine Methylsulfate) 5 mg STK-MED ONCE .ROUTE ; Start 05/05/21 at 09:22; Stop 05/05/21 at 09:22; Status DC Sodium Chloride (SODIUM CHLORIDE 20ml) 20 ml STK-MED ONCE IJ ; Start 05/05/21 at 09:27; Stop 05/05/21 at 09:28; Status DC Sodium Chloride (SODIUM CHLORIDE 20ml) 20 ml STK-MED ONCE IJ ; Start 05/05/21 at 09:27; Stop 05/05/21 at 09:28; Status DC Sodium Chloride (SODIUM CHLORIDE 20ml) 20 ml STK-MED ONCE IJ ; Start 05/05/21 at 09:28; Stop 05/05/21 at 09:28; Status DC Sevoflurane (Ultane) 60 ml STK-MED ONCE IH ; Start 05/05/21 at 09:45; Stop 05/05/21 at 09:46; Status DC Meperidine HCl (Demerol) 25 mg STK-MED ONCE .ROUTE ; Start 05/05/21 at 09:57; Stop 05/05/21 at 09:57; Status DC Meperidine HCl (Demerol) 25 mg 1X ONCE IV Last administered on 05/05/21at 10:39; Start 05/05/21 at 10:15; Stop 05/05/21 at 10:16; Status DC Influenza Virus Vaccine Quadrival (Flulaval Quad [id number] Syringe) 0.5 ml ONCE ONCE VAX IM Last administered on 05/07/21at 09:26; Start 05/05/21 at 19:45; Stop 05/05/21 at 19:50; Status DC Famotidine (Pepcid) 20 mg PRN DAILY PRN PO GERD Last administered on 05/05/21at 21:06; Start 05/05/21 at 20:45 Levothyroxine Sodium (Synthroid) 112 mcg DAILY06 PO Last administered on 05/08/21at 06:01; Start 05/06/21 at 06:00 Montelukast Sodium (Singulair) 10 mg HS PO Last administered on 05/07/21at 21:22; Start 05/05/21 at 21:00 Pantoprazole Sodium (Protonix) 40 mg DAILYAC PO Last administered on 05/08/21at 08:25; Start 05/06/21 at 07:30 Trazodone HCl (Desyrel) 100 mg HS PO Last administered on 05/07/21at 21:22; Start 05/05/21 at 21:00 Non-Formulary Medication (Fluticasone/ Salmeterol (Advair 500-50 Diskus)) 2 inh BID IH ; Start 05/05/21 at 21:00; Status UNV Non-Formulary Medication (Icosapent Ethyl (Vascepa)) 1 gm BID PO ; Start 05/05/21 at 21:00; Status UNV Albuterol Sulfate (Ventolin Neb Soln) 2.5 mg Q6HRS NEB Last administered on 05/08/21at 07:38; Start 05/05/21 at 21:00 Budesonide (Pulmicort) 0.5 mg RTBID NEB Last administered on 05/08/21at 07:38; Start 05/05/21 at 21:00 Sodium Chloride 1,000 ml @ 100 mls/hr Q10H ONCE IV Last administered on 05/07/21at 12:34; Start 05/07/21 at 12:00; Stop 05/07/21 at 21:59; Status DC Active Scripts Active Reported Pantoprazole Sodium (Pantoprazole Sodium) 40 Mg Tablet.dr 40 Mg PO DAILYAC Ibuprofen 800 Mg Tablet 800 Mg PO PRN Q6HRS PRN Proair Hfa (Albuterol Sulfate) 8.5 Gm Hfa.aer.ad 2 Puff INH PRN Q6HRS PRN Pepcid (Famotidine) 20 Mg Tablet 20 Mg PO PRN DAILY PRN Voltaren Arthritis Pain (Diclofenac Sodium) 20 Gm Gel..gram. 20 Gm TP PRN DAILY PRN Montelukast Sodium Tablet (Montelukast Sodium) 10 Mg Tablet 10 Mg PO HS Fluticasone Propionate Nasal [place] (Fluticasone Propionate) 16 Gm [place].susp 2 [place] NS DAILY Advair 500-50 Diskus (Fluticasone/Salmeterol) 1 Each Disk.w.dev 2 Inh IH BID Zyrtec (Cetirizine Hcl) 10 Mg Tablet 10 Mg PO DAILY Vascepa (Icosapent Ethyl) 1 Gm Capsule 1 Gm PO BID Levothyroxine Sodium 112 Mcg Tablet 112 Mcg PO DAILYAC Trazodone Hcl 100 Mg Tablet 100 Mg PO HS Allergies Allergies: Coded Allergies: Sulfa (Sulfonamide Antibiotics) (Verified Adverse Reaction, Intermediate, Rash, 05/05/21) ROS General: YES: Fatigue; No: Chills, Night Sweats, Malaise, Appetite, Other PSYCHOLOGICAL ROS: No: Anxiety, Behavioral Disorder, Concentration difficultie, Decreased libido, Depression, Disorientation, Hallucinations, Hostility, Irritablity, Memory difficulties, Mood Swings, Obsessive thoughts, Physical abuse, Sexual abuse, Sleep disturbances, Suicidal ideation, Other Eyes: No Blurry vision, No Decreased vision, No Double vision, No Dry eyes, No Excessive tearing, No Eye Pain, No Itchy Eyes, No Loss of vision, No Photophobia, No Scotomata, No Uses contacts, No Uses glasses, No Other HEENT: No: Heacaches, Visual Changes, Hearing change, Nasal congestion, Nasal discharge, Oral lesions, Sinus pain, Sore Throat, Epistaxis, Sneezing, Snoring, Tinnitus, Vertigo, Vocal changes, Other Respiratory: No: Cough, Hemoptysis, Orthopnea, Pleuritic Pain, Shortness of breath, SOB with excertion, Sputum Changes, Stridor, Tachypnea, Wheezing, Other Cardiovascular: No Chest Pain, No Palpitations, No Orthopnea, No Paroxysmal Noc. Dyspnea, No Edema, No Lt Headedness, No Other Gastrointestinal: No Nausea, No Vomiting, No Abdominal Pain, No Diarrhea, No Constipation, No Melena, No Hematochezia, No Other Genitourinary: No Dysuria, No Frequency, No Incontinence, No Hematuria, No Retention, No Discharge, No Urgency, No Pain, No Flank Pain, No Other, No , No , No , No , No , No , No Musculoskeletal: Yes Gait Disturbance, Yes Joint Stiffness, Yes Joint Swelling; No Joint Pain, No Muscle Pain, No Muscular Weakness, No Pain In:, No Swelling In:, No Other Neurological: No Behavorial Changes, No Bowel/Bladder ControlChng, No Confusion, No Dizziness, No Gait Disturbance, No Headaches, No Impaired Coord/balance, No Memory Loss, No Numbness/Tingling, No Seizures, No Speech Problems, No Tremors, No Visual Changes, No Weakness, No Other Skin: Yes Dry Skin; No Eczema, No Hair Changes, No Lumps, No Mole Changes, No Mottling, No Nail Changes, No Pruritus, No Rash, No Skin Lesion Changes, No Other, No Acne Physical Exam General: Alert, Oriented X3, Cooperative, No acute distress HEENT: Atraumatic, PERRLA, Mucous membr. moist/pink Lungs: Clear to auscultation, Normal air movement Heart: S1S2, no gallops, no murmurs Abdomen: Normal bowel sounds, Soft Rectal Exam: not examined Extremities: No cyanosis, No edema Skin: No rashes, No significant lesion Neuro: Normal gait, Normal speech, Sensation intact Psych/Mental Status: Mental status NL, Mood NL Vitals Vitals Vital Signs Date Time Temp Pulse Resp B/P (MAP) Pulse Ox O2 Delivery O2 Flow Rate FiO2 05/08/21 07:38 96 Room Air 05/08/21 03:00 98.6 101 16 113/62 (79) 98.6 05/06/21 06:30 2.0 Labs Labs Laboratory Tests Test 05/07/21 09:10 Hemoglobin 10.8 g/dL (12.0-15.5) Hematocrit 32.3 % (36.0-47.0) Mean Corpuscular Hemoglobin Concent 34 g/dL (31-37) Laboratory Tests Test 05/07/21 09:10 Hemoglobin 10.8 g/dL (12.0-15.5) Hematocrit 32.3 % (36.0-47.0) Mean Corpuscular Hemoglobin Concent 34 g/dL (31-37) VTE Prophylaxis Ordered VTE Prophylaxis Devices: Yes VTE Pharmacological Prophylaxi: Yes Assessment/Plan Assessment/Plan OA right knee, s/p surg on 05/05 post op relative hypotension and tachycardia, not orthostatic yesterday, will recheck, IV fluid going hypothyroid, check TSH, t4 obese, BMI 33 asthma, check CXR check chem 8, EKG, CXR, UA, , wound followed by ortho, Justifications for Admission Other Justification ASHWIN DOMINGUEZ MD May 08, 2021 08:56
[2021-05-08] MEDS: ENOXAPARIN 40 MG/0.4 ML SYRINGE. SQ SCH (09:19)
[2021-05-08 10:03] LABS: BASO % 1 % (0-3); EOS # 0.2 x10^3/uL (0.0-0.7); EOS % 4 % (0-3); HEMOGLOBIN 9.7 g/dL (12.0-15.5); LYMPH # 0.9 x10^3/uL (1.0-4.8); LYMPH % 16 % (24-48); MEAN CORPUSCULAR HEMOGLOBIN 30 pg (25-35); MEAN CORPUSCULAR HGB CONC 35 g/dL (31-37); MEAN CORPUSCULAR VOLUME 88 fL (79-100); MONO # 0.6 x10^3/uL (0.0-1.1); MONO % 12 % (0-9); NEUT # 3.6 x10^3/uL (1.8-7.7); NEUT % 67 % (31-73); PLATELET COUNT 197 x10^3/uL (140-400); RED BLOOD COUNT 3.19 x10^6/uL (3.50-5.40); RED CELL DISTRIBUTION WIDTH 13.1 % (11.5-14.5); WHITE BLOOD COUNT 5.3 x10^3/uL (4.0-11.0)
[2021-05-08 10:36] LABS: CALCIUM 7.9 mg/dL (8.5-10.1); CREATININE 0.8 mg/dL (0.6-1.0); GFR 71.8; MAGNESIUM 1.8 mg/dL (1.8-2.4); POTASSIUM 3.6 mmol/L (3.5-5.1)
[2021-05-08 10:39] LABS: FREE T4 1.7 ng/dL (0.76-1.46); THYROID STIM HORMONE (TSH) 0.133 uIU/mL (0.358-3.74)
--- NOTE | 2021-05-08 11:46 | PN ---
DATE: 05/08/2021 SUBJECTIVE: The patient has been evaluated since postoperative day #1 by myself. I saw her postoperative day #1. She had some lightheadedness with decreased blood pressure and difficulty with physical therapy completion due to the fact that she was lightheaded at that point. Her hemoglobin appeared stable. No signs or symptoms of infection of the wound. She is doing well with no signs or symptoms of deep venous thrombosis. The distal neurovascular status is fully intact. She was ambulating minimally due to the lightheadedness. I also saw her postoperative day #2 as well as day #3. I was also able to see her this morning where she has continued to increase her activity slightly. I did talk with physical therapy about her progress. She is progressing very well with weightbearing as tolerated. Her pain is leveled at a level 3 now. The previous days, it was 4-5. Today, she has no signs or symptoms of infection. No signs or symptoms of deep venous thrombosis. Her distal neurovascular status is fully intact. Range of motion is 0 to about 50 degrees of flexion, almost 60 at this point. That is during her active phase only. We anticipate she will be discharged either today or tomorrow to home with home health or rehabilitation facility depending on her wishes. Orthopedically, she is stable for discharge at this point. AUGUSTINE DR: Edward TID: [id number]
--- NOTE | 2021-05-08 12:50 | NUR ---
on floor and notified of patients orthostatic results
[2021-05-08] MEDS ORDERED: POTASSIUM CHLORIDE 20 MEQ TABLET.ER. PO ONE (13:00)
--- NOTE | 2021-05-08 13:10 | RAD ---
PA and lateral chest. HISTORY: Tachycardia PA and lateral views were taken of the chest. There is linear atelectasis in the left lower lobe. Hea rt is normal in size. There is no effusion. IMPRESSION: 1. Increased basilar linear atelectasis. 2. No other acute infiltrates. Electronically signed by: José Celestin MD (05/08/2021 1:08 PM) [facility]
[2021-05-08] MEDS: MIDODRINE 2.5 MG TABLET PO SCH ×2 (13:16→17:09)
[2021-05-08 17:24] LABS: BILIRUBIN,URINE NEGATIVE (NEG); CLARITY,URINE CLEAR; COLOR,URINE YELLOW; NITRITE,URINE NEGATIVE (NEG); PROTEIN,URINE NEGATIVE (NEG-TRACE)
[2021-05-08 17:35] LABS: RBC,URINE RARE /HPF (0-2); WBC,URINE OCC /HPF (0-4)
[2021-05-08 17:36] LABS: BACTERIA,URINE FEW /HPF (0-FEW)
[2021-05-08] MEDS: MONTELUKAST SODIUM 10 MG TABLET. PO SCH (20:15)
[2021-05-08] MEDS: traZODone 100 MG TABLET. PO SCH (20:15)
[2021-05-09 03:37] VITALS: BP 93/36
[2021-05-09] MEDS: LEVOTHYROXINE 112 MCG TABLET PO SCH (05:30)
[2021-05-09] MEDS: MIDODRINE 2.5 MG TABLET PO SCH ×2 (07:00→13:26)
[2021-05-09] MEDS: ALBUTEROL SULFATE 2.5 MG/3 ML NEBU. NEB SCH ×3 (07:34→15:30)
[2021-05-09] MEDS: BUDESONIDE 0.5 MG/2 ML NEBU. NEB SCH (07:34)
[2021-05-09] MEDS: ASPIRIN ENTERIC COATED 81 MG TABLET.DR. PO SCH (08:57)
[2021-05-09] MEDS: PANTOPRAZOLE 40 MG TABLET.DR. PO SCH (08:57)
[2021-05-09] MEDS: MULTIVITAMIN with MINERAL TABLET. PO SCH (08:57)
[2021-05-09] MEDS: oxyCODONE IR 5 MG TABLET PO PRN ×2 (08:57→16:28)
[2021-05-09] MEDS: SENNOSIDES/DOCUSATE 8.6/50MG TABLET. PO SCH (08:57)
[2021-05-09] MEDS: FERROUS SULFATE 325 MG TABLET. PO SCH ×2 (08:57→16:29)
[2021-05-09] MEDS: ASCORBIC ACID 500 MG TABLET PO SCH (08:57)
[2021-05-09] MEDS: ENOXAPARIN 40 MG/0.4 ML SYRINGE. SQ SCH (08:58)
[2021-05-09] MEDS: MELOXICAM 7.5 MG TABLET PO SCH (09:02)
[2021-05-09] MEDS ORDERED: MAGNESIUM SULFATE 1GM 100 ML IV ONE (09:15)
--- NOTE | 2021-05-09 09:36 | PDOC ---
[employer] PROGRESS NOTE Date of Service DOS: DATE: 05/09/21 TIME: 09:06 Chief Complaint Chief Complaint OA right knee, s/p surg on 05/05 post op relative hypotension and tachycardia, not orthostatic yesterday, will recheck, IV fluid going hypothyroid - may need dose reduction as she is relatively hyperthyroid on labs obese, BMI 33 asthma -continue Singulair and nebulizers. She does prefer her Advair 500/50 inhaler twice daily Will check AM cortisol, replace mag and likely home with outpatient PT and laquita History of Present Illness History of Present Illness pt had elective knee surgery on 05.05, has been doing OK post op with pain, but has had relative low blood pressure for her, BP in 110 systolic she reports as low. And HR this AM is 101 at rest. she had months of prior knee injection per Dr. Sparrow, and elected to proceed withknee replacement, she has not been hospitalized for about 30 years since she had her gallbladder out, has asthma, thyroid, well controlled, compliant with meds she is retired, hoping to go home soon, can transfer and use walker, walked 30+ feet Potassium replaced mag and replace. Still little "fuzzy" when she stands. States the nebulizer treatments dry her out and she prefer her home Advair inhaler. Otherwise a little postop numbness inferior lateral and superomedial to her knee no numbness or tingling or swelling of right foot. Able to ambulate to the bathroom independently. No chest pain. Feels her shortness of breath is at baseline Vitals/I&O Vitals/I&O: Vital Signs Date Time Temp Pulse Resp B/P (MAP) Pulse Ox O2 Delivery O2 Flow Rate FiO2 05/09/21 08:00 Room Air 05/09/21 07:37 98 05/09/21 03:37 98.2 82 16 93/36 (55) 98.2 05/08/21 08:00 2.0 I & O 05/08/21 05/08/21 05/09/21 15:00 23:00 07:00 Intake Total 400 ml 210 ml 300 ml Output Total 1 ml 3 ml Balance 399 ml 207 ml 300 ml Physical Exam General: Alert, Oriented X3, Cooperative, No acute distress Abdomen: Normal bowel sounds, Soft Extremities: No cyanosis, No edema Skin: No rashes, No significant lesion Labs Labs: Laboratory Tests Test 05/08/21 09:40 05/08/21 17:00 05/08/21 20:17 05/09/21 08:23 White Blood Count 5.3 x10^3/uL (4.0-11.0) Red Blood Count 3.19 x10^6/uL (3.50-5.40) Hemoglobin 9.7 g/dL (12.0-15.5) Hematocrit 28.0 % (36.0-47.0) Mean Corpuscular Volume 88 fL (79-100) Mean Corpuscular Hemoglobin 30 pg (25-35) Mean Corpuscular Hemoglobin Concent 35 g/dL (31-37) Red Cell Distribution Width 13.1 % (11.5-14.5) Platelet Count 197 x10^3/uL (140-400) Neutrophils (%) (Auto) 67 % (31-73) Lymphocytes (%) (Auto) 16 % (24-48) Monocytes (%) (Auto) 12 % (0-9) Eosinophils (%) (Auto) 4 % (0-3) Basophils (%) (Auto) 1 % (0-3) Neutrophils # (Auto) 3.6 x10^3/uL (1.8-7.7) Lymphocytes # (Auto) 0.9 x10^3/uL (1.0-4.8) Monocytes # (Auto) 0.6 x10^3/uL (0.0-1.1) Eosinophils # (Auto) 0.2 x10^3/uL (0.0-0.7) Basophils # (Auto) 0.0 x10^3/uL (0.0-0.2) Sodium Level 140 mmol/L (136-145) Potassium Level 3.6 mmol/L (3.5-5.1) Chloride Level 105 mmol/L (98-107) Carbon Dioxide Level 26 mmol/L (21-32) Anion Gap 9 (6-14) Blood Urea Nitrogen 9 mg/dL (7-20) Creatinine 0.8 mg/dL (0.6-1.0) Estimated GFR (Cockcroft-Gault) 71.8 Glucose Level 114 mg/dL (70-99) Calcium Level 7.9 mg/dL (8.5-10.1) Magnesium Level 1.8 mg/dL (1.8-2.4) Thyroid Stimulating Hormone (TSH) 0.133 uIU/mL (0.358-3.74) Free Thyroxine 1.70 ng/dL (0.76-1.46) Urine Collection Type Unknown Urine Color Yellow Urine Clarity Clear Urine pH 7.0 (<5.0-8.0) Urine Specific [place] 1.010 (1.000-1.030) Urine Protein Negative mg/dL (NEG-TRACE) Urine Glucose (UA) Negative mg/dL (NEG) Urine Ketones (Stick) Negative mg/dL (NEG) Urine Blood Negative (NEG) Urine Nitrite Negative (NEG) Urine Bilirubin Negative (NEG) Urine Urobilinogen Dipstick 1.0 mg/dL (0.2 mg/dL) Urine Leukocyte Esterase Negative (NEG) Urine RBC Rare /HPF (0-2) Urine WBC Occ /HPF (0-4) Urine Squamous Epithelial Cells Many /LPF Urine Bacteria Few /HPF (0-FEW) Glucose (Fingerstick) 124 mg/dL (70-99) 103 mg/dL (70-99) Comment Review of Relevant I have reviewed the following items chen (where applicable) has been applied. Medications: Current Medications Medications (Trade) Dose Ordered Sig/Abel Route PRN Reason Start Time Stop Time Status Last Admin Dose Admin Midodrine (Proamatine) 2.5 mg [id number] PO 05/08/21 13:00 05/08/21 17:09 Potassium Chloride (Klor-Con) 20 meq 1X ONCE PO 05/08/21 13:00 05/08/21 13:01 DC 05/08/21 13:15 Albuterol Sulfate (Ventolin Neb Soln) 2.5 mg QID NEB 05/09/21 09:00 05/09/21 07:34 Justifications for Admission Other Justification KRYSTA BELL MD May 09, 2021 09:36
[2021-05-09 13:24] VITALS: BP_SYST 106; BP_SYST 107; BP_DIAS 41; BP_DIAS 48
[2021-05-09 13:25] VITALS: BP 101/58
[2021-05-09 13:26] VITALS: BP 101/58
[2021-05-09] MEDS ORDERED: RIVA10TA PO (15:46)
[2021-05-09] MEDS ORDERED: OXYC5TAB4 PO (15:46)
--- NOTE | 2021-05-09 16:01 | PDOC3 ---
Discharge Summary Visit Information Date of Admission: May 07, 2021 Date of Discharge: May 09, 2021 Admitting Diagnosis: Right knee OA Final Diagnosis Right knee OA Brief Hospital Course Allergies Allergies Coded Allergies Type Severity Reaction Last Updated Verified Sulfa (Sulfonamide Antibiotics) Adverse Reaction Intermediate Rash 05/05/21 Yes Vital Signs Vital Signs Date Time Temp Pulse Resp B/P (MAP) Pulse Ox O2 Delivery O2 Flow Rate FiO2 05/09/21 13:26 87 101/58 05/09/21 11:44 Room Air 05/09/21 07:37 98 05/09/21 03:37 98.2 16 98.2 05/08/21 08:00 2.0 Lab Results Laboratory Tests Test 05/08/21 09:40 05/08/21 17:00 05/08/21 20:17 05/09/21 08:23 White Blood Count 5.3 x10^3/uL (4.0-11.0) Red Blood Count 3.19 x10^6/uL (3.50-5.40) Hemoglobin 9.7 g/dL (12.0-15.5) Hematocrit 28.0 % (36.0-47.0) Mean Corpuscular Volume 88 fL (79-100) Mean Corpuscular Hemoglobin 30 pg (25-35) Mean Corpuscular Hemoglobin Concent 35 g/dL (31-37) Red Cell Distribution Width 13.1 % (11.5-14.5) Platelet Count 197 x10^3/uL (140-400) Neutrophils (%) (Auto) 67 % (31-73) Lymphocytes (%) (Auto) 16 % (24-48) Monocytes (%) (Auto) 12 % (0-9) Eosinophils (%) (Auto) 4 % (0-3) Basophils (%) (Auto) 1 % (0-3) Neutrophils # (Auto) 3.6 x10^3/uL (1.8-7.7) Lymphocytes # (Auto) 0.9 x10^3/uL (1.0-4.8) Monocytes # (Auto) 0.6 x10^3/uL (0.0-1.1) Eosinophils # (Auto) 0.2 x10^3/uL (0.0-0.7) Basophils # (Auto) 0.0 x10^3/uL (0.0-0.2) Sodium Level 140 mmol/L (136-145) Potassium Level 3.6 mmol/L (3.5-5.1) Chloride Level 105 mmol/L (98-107) Carbon Dioxide Level 26 mmol/L (21-32) Anion Gap 9 (6-14) Blood Urea Nitrogen 9 mg/dL (7-20) Creatinine 0.8 mg/dL (0.6-1.0) Estimated GFR (Cockcroft-Gault) 71.8 Glucose Level 114 mg/dL (70-99) Calcium Level 7.9 mg/dL (8.5-10.1) Magnesium Level 1.8 mg/dL (1.8-2.4) Thyroid Stimulating Hormone (TSH) 0.133 uIU/mL (0.358-3.74) Free Thyroxine 1.70 ng/dL (0.76-1.46) Urine Collection Type Unknown Urine Color Yellow Urine Clarity Clear Urine pH 7.0 (<5.0-8.0) Urine Specific [place] 1.010 (1.000-1.030) Urine Protein Negative mg/dL (NEG-TRACE) Urine Glucose (UA) Negative mg/dL (NEG) Urine Ketones (Stick) Negative mg/dL (NEG) Urine Blood Negative (NEG) Urine Nitrite Negative (NEG) Urine Bilirubin Negative (NEG) Urine Urobilinogen Dipstick 1.0 mg/dL (0.2 mg/dL) Urine Leukocyte Esterase Negative (NEG) Urine RBC Rare /HPF (0-2) Urine WBC Occ /HPF (0-4) Urine Squamous Epithelial Cells Many /LPF Urine Bacteria Few /HPF (0-FEW) Glucose (Fingerstick) 124 mg/dL (70-99) 103 mg/dL (70-99) Test 05/09/21 11:41 Glucose (Fingerstick) 124 mg/dL (70-99) Laboratory Tests Test 05/08/21 17:00 05/08/21 20:17 05/09/21 08:23 05/09/21 11:41 Urine Collection Type Unknown Urine Color Yellow Urine Clarity Clear Urine pH 7.0 (<5.0-8.0) Urine Specific [place] 1.010 (1.000-1.030) Urine Protein Negative mg/dL (NEG-TRACE) Urine Glucose (UA) Negative mg/dL (NEG) Urine Ketones (Stick) Negative mg/dL (NEG) Urine Blood Negative (NEG) Urine Nitrite Negative (NEG) Urine Bilirubin Negative (NEG) Urine Urobilinogen Dipstick 1.0 mg/dL (0.2 mg/dL) Urine Leukocyte Esterase Negative (NEG) Urine RBC Rare /HPF (0-2) Urine WBC Occ /HPF (0-4) Urine Squamous Epithelial Cells Many /LPF Urine Bacteria Few /HPF (0-FEW) Glucose (Fingerstick) 124 mg/dL (70-99) 103 mg/dL (70-99) 124 mg/dL (70-99) Brief Hospital Course Ms Iglesias is a 66yo F with PMHx asthma, hypothyroidism, right knee OA admitted for TKA of right knee. she had months of prior knee injection per Dr. Sparrow, and elected to proceed withknee replacement, she has not been hospitalized for about 30 years since she had her gallbladder out, has asthma, thyroid, well controlled, compliant with meds she is retired, 05/07: Has been doing OK post op with pain, but has had relative low blood p ressure for her, BP in 110 systolic she reports as low. And HR this AM is 101 at rest. 05/08: hoping to go home soon, can transfer and use walker, walked 30+ feet 05/09: Potassium replaced mag and replace. Still little "fuzzy" when she stands. States the nebulizer treatments dry her out and she prefer her home Advair inhaler. Otherwise a little postop numbness inferior lateral and superomedial to her knee no numbness or tingling or swelling of right foot. Able to ambulate to the bathroom independently. No chest pain. Feels her shortness of breath is at baseline Problem list: OA right knee, s/p surg on 05/05 post op relative hypotension and tachycardia, improved with IVF hypothyroid - may need dose reduction as she is relatively hyperthyroid on labs obese, BMI 33 asthma -continue Singulair and nebulizers. She does prefer her Advair 500/50 inhaler twice daily AM cortisol, replaced mag and home with outpatient PT and xarelto Recommend considering reduction in levothyroxine dosing outpatient discussed with patient. All questions answered the best my ability will have outpatient physical therapy with [facility]. Greater than 30 minutes spent on d/c You have a follow up appointment scheduled with Dr Ellis on 05/15 at 9 am here at [facility]. Call if you have any questions or concerns [phone] TOTAL KNEE HOME INSTRUCTIONS HOME ENVIRONMENT: Furniture should have firm cushions and sturdy arm supports. It should not be so deep that you have difficulty rising to a stand. Do not use walker as support to rise out of a chair as the can easily tip over. Always have enough light in the room to avoid tripping. Remove all throw rugs, electrical cord, or other tripping hazards. Avoid slippery floors. Ensure wide, clear pathways for walker or crutches to avoid falls. ACTIVITY RESTRICTIONS: You may bear FULL weight on your surgical leg. Continue knee and leg exercises as instructed by your physical therapist. DO NOT use a pillow under your affected knee. This may cause stiffening of your knee in a bend position. Do not kneel on the surgical knee. INCISION CARE: You may remove dressing all the way down to the skin on postop day 2. It is okay to shower and get the incision wet. No bathing. Use gentle soaps no ointments, peroxide or alcohol on the incision Check your incision every day for increased swelling, redness, heat or drainage. Note: your knee may be warm for 4-6 months... this is typical. Make sure your polar pack is not in direct contact with your skin. Use a towel or similar item between the pack and your skin. A light nonstick dressing should be placed in the incision if drainage is noted. Steri-strips may be present... allow them to fall off on their own. If you have mary, you will need to have them removed in the office in 2 weeks. Showers only until 4 weeks after surgery. Do not scrub the incision. Pat dry the incision. Do not submerse or soak the incision site. DIET: Resume your previous home diet OTHER IMPORTANT INSTRUCTIONS: For any dental procedures, ask your dentist or call our office for an antibiotic to be taken 1 hour before the appointment. This is for dental cleaning, checkups, or major work. This is for the rest of your life. No dental work should be done for the first 3 months following replacement surgery unless emergent. Clean any cuts or scratches thoroughly with soap and water. You should see your family physician for any infections other than your surgery sight for antibiotics if indicated. Wear your ARTUR hose for 22 hours/day for 6 weeks after surgery. Continue taking the Iron and Vitamin C as directed until the prescription runs out. Iron may cause stools to darken. If painful constipation occurs call our office. Take Enteric coated aspirin one tablet twice daily for 30 days. (If you were on aspirin prior to surgery... then resume that dose of aspirin after the 30 days) FOLLOW UP: See your surgeon in 2 weeks from the date of surgery for follow. Call our office for appointment if you did not make one at the time of surgery scheduling. Notify your surgeon if you have calf swelling and it does not resolve overnight. Notify your surgeon of any shortness of breath, calf tenderness, or chest pain. If severe go to the Emergency Room to be evaluated. WHEN TO CALL YOUR SURGEON: 1. Significant swelling or any new numbness in the limb that was operated on 2. Unrelenting pain 3. Fever or Chills (note that low grade temperatures are common in the first 72 hours after surgery) 4. Redness around incisions 5. Continuous drainage or bleeding from wounds (some drainage is expected) 6. Any other worrisome condition WHEN TO CALL YOUR FAMILY DOCTOR: 1. Flare up of any of your regular medical conditions WHEN TO CALL 911: 1. Chest Pain 2. Shortness of Breath Any other acute serious condition Discharge Information Condition at Discharge: Improved Follow Up: Weeks (2) Disposition/Orders: D/C to Home Scheduled Cetirizine Hcl (Zyrtec) 10 Mg Tablet, 10 MG PO DAILY for allergy control, (Reported) Entered as Reported by: SREE GAR on 04/20/211556 Fluticasone Propionate (Fluticasone Propionate Nasal Tyro) 16 Gm Tyro.susp, 2 SPRAY NS DAILY for control allergies, (Reported) Entered as Reported by: SREE GAR on 04/20/211556 Fluticasone/Salmeterol (Advair 500-50 Diskus) 1 Each Disk.w.dev, 2 INH IH BID for asthma control, (Reported) Entered as Reported by: SREE GAR on 04/20/211556 Last Taken: Unknown Dose on 05/04/211999 Last Action: Converted on 05/05/212044 by BARB MARTINS Icosapent Ethyl (Vascepa) 1 Gm Capsule, 1 GM PO BID for control hyperlipidemia, (Reported) Entered as Reported by: SREE GAR on 04/20/211556 Last Taken: Unknown Dose on 05/04/211999 Last Action: Converted on 05/05/212044 by BARB MARTINS Levothyroxine Sodium (Levothyroxine Sodium) 112 Mcg Tablet, 112 MCG PO DAILYAC for THYROID SUPPLEMENT, #30 Ref 0 (Reported) Entered as Reported by: SREE GAR on 04/20/211556 Last Taken: Unknown Dose on 05/05/21514 Last Action: Continued on 05/05/212044 by BARB MARTINS Montelukast Sodium (Montelukast Sodium Tablet ) 10 Mg Tablet, 10 MG PO HS for FOR ASTHMA, Ref 0 (Reported) Entered as Reported by: SREE GAR on 04/20/211556 Last Taken: Unknown Dose on 05/04/211999 Last Action: Continued on 05/05/212044 by BARB MARTINS Pantoprazole Sodium (Pantoprazole Sodium ) 40 Mg Tablet.dr, 40 MG PO DAILYAC for GERD, (Reported) Entered as Reported by: Aicha Stephens on 05/05/2145 Last Taken: Unknown Dose on 05/05/21514 Last Action: Continued on 05/05/212044 by BARB MARTINS Rivaroxaban (Xarelto) 10 Mg Tablet, 1 TAB PO DAILY for DVT PPX for 12 Days, #12 Ref 0 Prescribed by: KRYSTA BELL MD on 05/09/21 1546 Trazodone Hcl (Trazodone Hcl) 100 Mg Tablet, 100 MG PO HS for sleep aid, (Reported) Entered as Reported by: SREE GAR on 04/20/211556 Last Taken: Unknown Dose on 05/04/211999 Last Action: Continued on 05/05/212044 by BARB MARTINS Scheduled PRN Albuterol Sulfate (Proair Hfa) 8.5 Gm Hfa.aer.ad, 2 PUFF INH PRN Q6HRS PRN for SHORTNESS OF BREATH, (Reported) Entered as Reported by: SREE GAR on 04/20/211556 Diclofenac Sodium (Voltaren Arthritis Pain) 20 Gm Gel..gram., 20 GM TP PRN DAILY PRN for PAIN, (Reported) Entered as Reported by: SREE GAR on 04/20/211556 Famotidine (Pepcid) 20 Mg Tablet, 20 MG PO PRN DAILY PRN for control gerd, (Reported) Entered as Reported by: SREE GAR on 04/20/211556 Last Taken: Unknown Dose on 05/04/211999 Last Action: Continued on 05/05/212044 by BARB MARTINS Oxycodone Hcl (Oxycodone Hcl Immed.release ) 5 Mg Tablet, 5 MG PO PRN Q8HRS PRN for PAIN for 6 Days, #18 Prescribed by: KRYSTA BELL MD on 05/09/21 154 Discontinued Medications Ibuprofen (Ibuprofen) 800 Mg Tablet, 800 MG PO PRN Q6HRS PRN for INFLAMMATION, (Reported) Entered as Reported by: SREE GAR on 04/20/211556 Justicifation of Admission Dx: Justifications for Admission: Justification of Admission Dx: Yes KRYSTA BELL MD May 09, 2021 16:01
--- NOTE | 2021-05-09 17:00 | NUR ---
Pt discharged home with outpatient therapy. Discharge instructions and prescriptions discussed. Pt verbalized understanding. IV removed. Belongings were packed and pt was assisted to wheelchair and secured in car with .
== END 2021-05-09 17:06 | disposition home or self-care (01) | DRG 470 ==
LOC: SURG 06:20 → 4 SOUTHEST 09:49 → INTOOBSV 09:49 → OBSVTOIN 05-07 15:53 → 4 NORTH 05-07 19:31
PROVIDERS: ADMIT Orthopaedic Surgery; ATTEND Orthopaedic Surgery
PROC: 0SRC069 Replacement of Right Knee Joint with Oxidized Zirconium on Polyethylene Synthetic Substitute, Cemented, Open Approach (ICD-10-PCS; principal; 2021-05-07)
PROC: 8E0Y0CZ Robotic Assisted Procedure of Lower Extremity, Open Approach (ICD-10-PCS; 2021-05-07)
DX: M17.11 Unilateral primary osteoarthritis, right knee (principal); Z68.33 Body mass index [BMI] 33.0-33.9, adult; J45.909 Unspecified asthma, uncomplicated; E66.9 Obesity, unspecified; E03.9 Hypothyroidism, unspecified; Z88.2 Allergy status to sulfonamides; Z20.822 Contact with and (suspected) exposure to COVID-19; E78.5 Hyperlipidemia, unspecified
CPT/HCPCS: 36415; 71046; 73560; 80048; 81001; 82533; 82962; 83735; 84439; 84443; 85014; 85018; 85025; 86850; 86900; 86901; 90471; 90686; 94640; 94760; A4209; A4213; A4930; A6258; A6402; A6450; A6455; A6550; C1713; C1755; C1776; G0378; G0379; J0171; J0690; J1650; J1885; J2175; J2270; J2405; J2704; J2710; J2795; J3010; J3475; J3490; J7030; 97110-GP; 97116-GP; 97150-GP; 97530-GO; 97530-GP; 97535-GO; J7613; J7626

== ENCOUNTER 2021-05-25 06:50 | Inpatient (IN) | payer OTHER ==
[~2021-05-25] VITALS: Ht 149.9 cm; Wt 65.9 kg
[~2021-05-25 06:50] MED LIST changes: -0.9 % SODIUM CHLORIDE 10 ML DISP.SYRIN. IV PRN; -ACETAMINOPHEN 500 MG TABLET PO PRN; -CALCIUM CARBONATE 500 MG TAB.CHEW PO PRN; -DEXTROSE 50% 25 GM / 50ML DISP.SYRIN. IV PRN; -HYDROmorphone 2 MG/ML VIAL IVP PRN; -IV RINGERS,LACTATED 1000ML 1,000 ML IV SCH; -MELOXICAM 7.5 MG TABLET PO PRN; -METOCLOPRAMIDE HCL 10 MG/2 ML VIAL. IVP PRN; -MORPHINE SULFATE 2 MG/ML INJ. IVP PRN; +OXYC5TAB4 PO; +PANT40TA77 PO; -PROCHLORPERAZINE 10 MG/2 ML VIAL. IVP PRN; -PROCHLORPERAZINE 5 MG TABLET. PO PRN; +RIVA10TA PO; -TRANEXAMIC ACID 1,000 MG in IV NS 50ML -- 1ST BAG INJ ONE; -TV=62ml MORPHINE 5 MG, KETOROLAC 30 MG, ROPIV, EPI INT ART ONE; -ZOLPIDEM 5 MG TABLET. PO PRN; -diphenhydrAMINE 50 MG/ML VIAL IVP PRN; -fentaNYL PF VIAL 100 MCG/2 ML VIAL IVP PRN
--- NOTE | 2021-05-25 07:58 | PHYS DOC ---
Past Medical History Smoking Status: Never Smoker General Adult EDM: Chief Complaint: LOWER EXT PAIN HPI: HPI: Patient is a 66 year old female who presents with right knee pain, swelling, redness and drainage from her incision site. She reports symptoms for the least the past 3 days. She has been soaking through her pants and soaking through multiple dressing changes. She denies fevers or chills. She denies chest pain or dyspnea. She denies nausea, vomiting abdominal pain. She had a total knee arthroplasty on May 052020. She had no complications with the surgery itself, though she was admitted and had medicine follow her for some hypotension after her surgery. She went home and had no difficulties until 3 days ago. She had no issues at her postop visit on May 15. Review of Systems: Review of Systems: Constitutional: Denies fever or chills. [] HENT: Denies nasal congestion or sore throat. [] Respiratory: Denies cough or shortness of breath. [] Cardiovascular: Denies chest pain or edema. [] GI: Denies abdominal pain, nausea, vomiting Musculoskeletal: Right joint pain, swelling, redness, open wound and drainage. Integument: Skin redness, swelling, pain and drainage from her right anterior knee. Neurologic: Denies headache, focal weakness or sensory changes. [] Psychiatric: Denies depression or anxiety. [] Heart Score: C/O Chest Pain: No Risk Factors: Risk Factors: DM, Current or recent (<one month) smoker, HTN, HLP, family history of CAD, obesity. Risk Scores: Score 0 - 3: 2.5% MACE over next 6 weeks - Discharge Home Score 4 - 6: 20.3% MACE over next 6 weeks - Admit for Clinical Observation Score 7 - 10: 72.7% MACE over next 6 weeks - Early Invasive Strategies Allergies: Allergies: Allergies Coded Allergies Type Severity Reaction Last Updated Verified Sulfa (Sulfonamide Antibiotics) Adverse Reaction Intermediate Rash 05/05/21 Yes Physical Exam: PE: Constitutional: Well developed, well nourished, no acute distress, non-toxic appearance. She does appear to be uncomfortable and in pain. HENT: Normocephalic, atraumatic Eyes: Sclera clear, anicteric Neck: Trachea midline Cardiovascular: +2 dorsalis pedis and radial pulses bilaterally Lungs & Thorax: Bilateral breath sounds clear to auscultation [] Abdomen: Abdomen soft, nondistended, nontender to palpation. Skin: Significant warmth, soft tissue swelling, exquisite soft tissue tenderness of her anterior knee, the proximal incision site is open, partially dehisced, with bloody and purulent drainage spontaneously draining. No focal fluctuance. There is diffuse erythema, soft tissue swelling around the entire incision s ite, worse proximally than distally. No palpable crepitus or subcutaneous emphysema. No dark, dusky discoloration. Back: No deformity, full range of motion. Extremities: Dehiscence of the right anterior knee incision, with surrounding cellulitis and purulent drainage, as described above. No calf tenderness. No circumferential erythema of the right knee. Painful range of motion, secondary to pain. Neurologic: Alert and oriented X 3, normal motor function, normal sensory function, no focal deficits noted. [] Psychologic: Affect normal, judgement normal, mood normal. She is pleasant and cooperative. EKG: EKG: [] Radiology/Procedures: Radiology/Procedures: IMAGING REPORT Signed PATIENT: VALDO ERICKSON ACCOUNT: [id number] : 1955 LOCATION: ER AGE: 66 SEX: F EXAM STATUS: REG ER ORD. PHYSICIAN: FANI SINGLETARY DO REASON: Right knee infection PROCEDURE: KNEE RIGHT 3V XR KNEE 3 VIEWS_RT Clinical indications: Reason: Right knee infection / Spl. Instructions: / History: Findings: No acute fracture or dislocation or osteolytic process is evident. T here is anterior subcutaneous soft tissue edema involving the distal thigh and prepatellar region and proximal rocha. Small right knee joint effusion is seen. IMPRESSION: No acute osseous abnormality is evident. Soft tissue edema and small right knee joint effusion. Electronically signed by: Camden Dawkins MD (05/25/2021 9:29 AM) [id number] DICTATED and SIGNED BY: CAMDEN DAWKINS MD DATE: 05/25/21 [id number] 0 Course & Med Decision Making: Course & Med Decision Making Pertinent Labs and Imaging studies reviewed. (See chart for details) The findings, differential diagnosis and plan of care discussed with the patient. She confirms her tetanus is current. She is given IV morphine and IV Dilaudid for pain. Blood cultures are obtained. I obtained a wound culture from the drainage on her right knee. IV vancomycin is empirically given. I have discussed that I recommend admission for treatment of wound infection. She is accepted for admission by Dr. Jeff. Dr. Ellis of orthopedics has been paged for consult. Multiple attempts were made throughout the day to contact Dr. Howard, without success. After the patient was already admitted to the hospitalist service I was finally able to get a hold of him and I explained that she was admitted, given IV antibiotics and that he would consult and see her in the morning. Cecil Disclaimer: eCcil Disclaimer: This electronic medical record was generated, in whole or in part, using a voice recognition dictation system. Departure Departure Impression: Primary Impression: Wound infection after surgery Disposition: ADMITTED INPATIENT Admitting Physician: JABIER Condition: GUARDED Referrals: SRI NOGUERA MD (PCP) FANI SINGLETARY DO May 25, 2021 07:58
[2021-05-25] MEDS ORDERED: VANCOMYCIN 1.5 GM in IV NORMAL SALINE 500ML BAG 500 ML IV ONE (08:15)
[2021-05-25] MEDS ORDERED: ONDANSETRON PF 4 MG/2 ML VIAL. IVP ONE (08:15)
[2021-05-25] MEDS ORDERED: MORPHINE SULFATE 4 MG/ML INJ. IVP ONE (08:15)
--- NOTE | 2021-05-25 09:31 | RAD ---
XR KNEE 3 VIEWS_RT Clinical indications: Reason: Right knee infection / Spl. Instructions: / History: Findings: No acute fracture or dislocation or osteolytic process is evident. There is anterior subcu taneous soft tissue edema involving the distal thigh and prepatellar region and proximal rocha. Small right knee joint effusion is seen. IMPRESSION: No acute osseous abnormality is evident. Soft tissue edema and small right knee joint eff usion. Electronically signed by: Camden Dawkins MD (05/25/2021 9:29 AM) [id number]
[2021-05-25 09:38] LABS: CALCIUM 9.3 mg/dL (8.5-10.1); CREATININE 0.7 mg/dL (0.6-1.0); GFR 83.7; POTASSIUM 3.5 mmol/L (3.5-5.1)
[2021-05-25] MEDS ORDERED: HYDROmorphone 2 MG/ML VIAL IVP ONE (09:45)
[2021-05-25 10:07] LABS: HEMATOCRIT 34.9 % (36.0-47.0); HEMOGLOBIN 11.5 g/dL (12.0-15.5); RED BLOOD COUNT 3.86 x10^6/uL (3.50-5.40); RED CELL DISTRIBUTION WIDTH 14.8 % (11.5-14.5); WHITE BLOOD COUNT 16.1 x10^3/uL (4.0-11.0)
[2021-05-25] MEDS ORDERED: IV NORMAL SALINE 1000ML BAG 1,000 ML IV ONE (10:45)
[2021-05-25] MEDS ORDERED: ONDANSETRON PF 4 MG/2 ML VIAL. IVP PRN ×2 (10:45→12:00)
[2021-05-25] MEDS: HYDROmorphone 2 MG/ML VIAL IVP PRN ×2 (10:48→14:15)
[2021-05-25] MEDS ORDERED: MORPHINE SULFATE 2 MG/ML INJ. IV PRN ×2 (12:00)
[2021-05-25] MEDS ORDERED: ACETAMINOPHEN 325 MG TABLET. PO PRN (12:00)
[2021-05-25] MEDS ORDERED: CALCIUM CARBONATE 500 MG TAB.CHEW PO PRN (12:00)
[2021-05-25] MEDS ORDERED: ELECTROLYTE (NON-ICU) PROTOCOL. MC PRN (12:00)
[2021-05-25] MEDS ORDERED: ZOLPIDEM 5 MG TABLET. PO PRN (12:00)
[2021-05-25] MEDS ORDERED: FAMOTIDINE 20 MG TABLET. PO PRN (12:15)
[2021-05-25] MEDS ORDERED: DICLOFENAC SODIUM 1% TOPICAL GEL 100GM TUBE. TP PRN (12:15)
--- NOTE | 2021-05-25 13:28 | PDOC1 ---
History and Physical Date of Service: DOS: DATE: 05/25/21 TIME: 13:25 Chief Complaint: Problems: (1) Wound infection Chief Complain: Wound pain History of Present Illness: HPI: Patient is 66-year-old female presented the emergency room today due to 3-day history of wound concerns. Patient underwent a right TKA on May 05 and initially did well postop in terms of wound healing. Said she was seen in clinic on the and wound was healing well then. However over the past 3 days she is noticed that the proximal parts of the surgical incision started "opening up." Also noticed increased drainage from the wound as well. She denies any sort of trauma to the site any sort of excessive movement. Reports some generalized unwell feeling also. I examined her patient was in a fair amount of pain. She could not sit still she was uncomfortable. She was really denying any sort of other symptoms including headache, vision change, dizziness, chest pain, shortness of breath, abdominal pain, dysuria. Past Medical/Surgical History: PMH/PSH: Allergic rhinitis, asthma, hypothyroidism Allergies: Allergies: Coded Allergies: Sulfa (Sulfonamide Antibiotics) (Verified Adverse Reaction, Intermediate, Rash, 05/05/21) Family History: Family History: Reviewed with patient none known Social History: Social History: Denies alcohol tobacco drug use Current Medications: Current Medications Current Medications Morphine Sulfate (Morphine Sulfate) 4 mg 1X ONCE IVP Last administered on 05/25/21at 08:57; Start 05/25/21 at 08:15; Stop 05/25/21 at 08:20; Status DC Ondansetron HCl (Zofran) 4 mg 1X ONCE IVP Last administered on 05/25/21at 08:55; Start 05/25/21 at 08:15; Stop 05/25/21 at 08:20; Status DC Vancomycin HCl 1.5 gm/Sodium Chloride 500 ml @ 250 mls/hr 1X ONCE IV Last administered on 05/25/21at 08:59; Start 05/25/21 at 08:15; Stop 05/25/21 at 10:14; Status DC Hydromorphone HCl (Dilaudid) 1 mg 1X ONCE IVP Last administered on 05/25/21at 09:57; Start 05/25/21 at 09:45; Stop 05/25/21 at 09:46; Status DC Ondansetron HCl (Zofran) 4 mg PRN Q8HRS PRN IVP NAUSEA/VOMITING Last administ ered on 05/25/21at 10:49; Start 05/25/21 at 10:45; Stop 05/25/21 at 12:09; Status DC Morphine Sulfate (Morphine Sulfate) 4 mg PRN Q2HRS PRN IVP pain; Start 05/25/21 at 10:45 Hydromorphone HCl (Dilaudid) 1 mg PRN Q4HRS PRN IVP severe pain Last administered on 05/25/21at 10:48; Start 05/25/21 at 10:45 Sodium Chloride 1,000 ml @ 75 mls/hr 1X ONCE IV ; Start 05/25/21 at 10:45; Stop 05/26/21 at 00:04 Ondansetron HCl (Zofran) 4 mg PRN Q6HRS PRN IVP NAUSEA/VOMITING; Start 05/25/21 at 12:00 Calcium Carbonate/ Glycine (Tums) 500 mg PRN Q3HRS PRN PO UPSET STOMACH; Start 05/25/21 at 12:00 Zolpidem Tartrate (Ambien) 5 mg PRN QHS PRN PO INSOMNIA, MAY REPEAT IN 1HR; Start 05/25/21 at 12:00 Info (Non-Icu Electrolyte Protocol) 1 ea PRN DAILY PRN MC SEE COMMENTS; Start 05/25/21 at 12:00 Oxycodone HCl (Roxicodone) 5 mg PRN Q3HRS PRN PO BREAKTHROUGH PAIN; Start 05/25/21 at 12:00 Morphine Sulfate (Morphine Sulfate) 1 mg PRN Q1HR PRN IV PAIN; Start 05/25/21 at 12:00 Morphine Sulfate (Morphine Sulfate) 2 mg PRN Q1HR PRN IV PAIN; Start 05/25/21 at 12:00 Acetaminophen (Tylenol) 650 mg PRN Q6HRS PRN PO Headaches, Temp > 101.5F; Start 05/25/21 at 12:00 Senna/Docusate Sodium (Senna Plus) 1 tab BID PO ; Start 05/25/21 at 21:00 Cetirizine HCl (ZyrTEC) 10 mg DAILY PO ; Start 05/26/21 at 09:00 Diclofenac Sodium (Voltaren) 1 mahesh PRN DAILY PRN TP PAIN; Start 05/25/21 at 12:15 Famotidine (Pepcid) 20 mg PRN DAILY PRN PO control gerd; Start 05/25/21 at 12:15 Fluticasone Propionate (Flonase) 2 spray DAILY NS ; Start 05/26/21 at 09:00 Levothyroxine Sodium (Synthroid) 112 mcg DAILYAC PO ; Start 05/26/21 at 07:30 Montelukast Sodium (Singulair) 10 mg HS PO ; Start 05/25/21 at 21:00 Pantoprazole Sodium (Protonix) 40 mg DAILYAC PO ; Start 05/26/21 at 07:30 Trazodone HCl (Desyrel) 100 mg HS PO ; Start 05/25/21 at 21:00 Non-Formulary Medication (Fluticasone/ Salmeterol (Advair 500-50 Diskus)) 2 inh BID IH ; Start 05/25/21 at 21:00; Status UNV Budesonide (Pulmicort) 0.5 mg RTBID NEB ; Start 05/25/21 at 20:00 Albuterol Sulfate (Ventolin Neb Soln) 2.5 mg RTQID NEB ; Start 05/25/21 at 16:00 Active Scripts Active Oxycodone Hcl Immed.release (Oxycodone Hcl) 5 Mg Tablet 5 Mg PO PRN Q8HRS PRN 6 Days Xarelto (Rivaroxaban) 10 Mg Tablet 1 Tab PO DAILY 12 Days Reported Pantoprazole Sodium (Pantoprazole Sodium) 40 Mg Tablet.dr 40 Mg PO DAILYAC Proair Hfa (Albuterol Sulfate) 8.5 Gm Hfa.aer.ad 2 Puff INH PRN Q6HRS PRN Pepcid (Famotidine) 20 Mg Tablet 20 Mg PO PRN DAILY PRN Voltaren Arthritis Pain (Diclofenac Sodium) 20 Gm Gel..gram. 20 Gm TP PRN DAILY PRN Montelukast Sodium Tablet (Montelukast Sodium) 10 Mg Tablet 10 Mg PO HS Fluticasone Propionate Nasal Roberts (Fluticasone Propionate) 16 Gm Roberts.susp 2 Roberts NS DAILY Advair 500-50 Diskus (Fluticasone/Salmeterol) 1 Each Disk.w.dev 2 Inh IH BID Zyrtec (Cetirizine Hcl) 10 Mg Tablet 10 Mg PO DAILY Vascepa (Icosapent Ethyl) 1 Gm Capsule 1 Gm PO BID Levothyroxine Sodium 112 Mcg Tablet 112 Mcg PO DAILYAC Trazodone Hcl 100 Mg Tablet 100 Mg PO HS ROS: Review of Systems Review of System Unless noted in HPI 14 point review of systems was negative Physical Exam: Vital Signs: Vital Signs Date Time Temp Pulse Resp B/P (MAP) Pulse Ox O2 Delivery O2 Flow Rate FiO2 05/25/21 10:48 16 95 Room Air 05/25/21 10:02 80 145/67 (93) 05/25/21 08:20 97.9 97.9 Physcial Exam: GEN: No apparent distress. Alert and oriented HEENT: Normal cephalic, atraumatic, external auditory canals are patent EYES: Extraocular muscles are intact, pupil are equally round and reactive to light and accommodation MUSCULOSKELETAL: Well developed , well nourished, good range of motion ENDOCRINE: No thyromegaly was palpated LYMPHATICS: No cervical chain or axillary nodes were noted HEMATOPOIETIC: No bruising NECK: Supple, no JVD, no thyromegaly was noted LUNGS: Clear to auscultation in all lung sidhu without rhonchi or wheezing HEART: RRR, S!, S2 present. Peripheral pulses intact, no obvious murmurs noted ABDOMEN: Soft, nontender. Positive bowel sounds, no organomegaly, normal b owel sounds EXTREMITIES: Without clubbing, cyanosis, or edema. Pedal pulses intact. Negative Homans sign NEUROLOGIC: Normal speech and tone. A&O x 3, moves all extremities, no obvious focal deficits PSYCHIATRIC: Normal affect, normal mood. Stable SKIN: No ulcerations or rashes, good skin turgor, no jaundice VASCULAR: Good capillary refill, neurovascular bundle appears to be intact Labs: Labs: Laboratory Tests Test 05/25/21 09:15 05/25/21 09:55 Sodium Level 139 mmol/L (136-145) Potassium Level 3.5 mmol/L (3.5-5.1) Chloride Level 105 mmol/L (98-107) Carbon Dioxide Level 22 mmol/L (21-32) Anion Gap 12 (6-14) Blood Urea Nitrogen 18 mg/dL (7-20) Creatinine 0.7 mg/dL (0.6-1.0) Estimated GFR (Cockcroft-Gault) 83.7 Glucose Level 99 mg/dL (70-99) Calcium Level 9.3 mg/dL (8.5-10.1) C-Reactive Protein, Quantitative 327.9 mg/L (0-3.3) White Blood Count 16.1 x10^3/uL (4.0-11.0) Red Blood Count 3.86 x10^6/uL (3.50-5.40) Hemoglobin 11.5 g/dL (12.0-15.5) Hematocrit 34.9 % (36.0-47.0) Mean Corpuscular Volume 90 fL (79-100) Mean Corpuscular Hemoglobin 30 pg (25-35) Mean Corpuscular Hemoglobin Concent 33 g/dL (31-37) Red Cell Distribution Width 14.8 % (11.5-14.5) Platelet Count 474 x10^3/uL (140-400) Erythrocyte Sedimentation Rate 72 (0-25) Lactic Acid Level 1.3 mmol/L (0.4-2.0) Laboratory Tests Test 05/25/21 09:15 05/25/21 09:55 Sodium Level 139 mmol/L (136-145) Potassium Level 3.5 mmol/L (3.5-5.1) Chloride Level 105 mmol/L (98-107) Carbon Dioxide Level 22 mmol/L (21-32) Anion Gap 12 (6-14) Blood Urea Nitrogen 18 mg/dL (7-20) Creatinine 0.7 mg/dL (0.6-1.0) Estimated GFR (Cockcroft-Gault) 83.7 Glucose Level 99 mg/dL (70-99) Calcium Level 9.3 mg/dL (8.5-10.1) C-Reactive Protein, Quantitative 327.9 mg/L (0-3.3) White Blood Count 16.1 x10^3/uL (4.0-11.0) Red Blood Count 3.86 x10^6/uL (3.50-5.40) Hemoglobin 11.5 g/dL (12.0-15.5) Hematocrit 34.9 % (36.0-47.0) Mean Corpuscular Volume 90 fL (79-100) Mean Corpuscular Hemoglobin 30 pg (25-35) Mean Corpuscular Hemoglobin Concent 33 g/dL (31-37) Red Cell Distribution Width 14.8 % (11.5-14.5) Platelet Count 474 x10^3/uL (140-400) Erythrocyte Sedimentation Rate 72 (0-25) Lactic Acid Level 1.3 mmol/L (0.4-2.0) Assessment/Plan Assessment/Plan Wound dehiscence, history of allergic rhinitis asthma hypothyroidism -Patient underwent right TKA on May 05 initially healed well. Over the past 3 days noticed some wound dehiscence and increased drainage -Presented emergency room today and there was concern for wound infection -Blood cultures and wound cultures obtained emergency room. Received 1 dose vancomycin in emergency room -We will continue vancomycin add cefepime Flagyl. Infectious disease consulted. Okay to hold off on antibiotics should surgical team and/or infectious disease teams prefer; -We will keep n.p.o. for now -She reports that morphine and Dilaudid have really not been helping with pain. Will try fentanyl -Hold off DVT prophylaxis for now -Orthopedic team consulted -Home meds resumed as indicated. Justifications for Admission Other Justification KRYSTA DASH MD May 25, 2021 13:28
[2021-05-25] MEDS ORDERED: fentaNYL PF VIAL 100 MCG/2 ML VIAL IVP PRN (14:00)
[2021-05-25] MEDS: metroNIDAZOLE 500 MG TABLET PO SCH ×2 (14:11→22:00)
[2021-05-25] MEDS: CEFEPIME HCL IV Push 2 GM VIAL. IVP SCH ×2 (14:12→21:00)
[2021-05-25] MEDS: ALBUTEROL SULFATE 2.5 MG/3 ML NEBU. NEB SCH ×2 (16:46→20:00)
[2021-05-25] MEDS: VANCOMYCIN PER PHARMACY MC PRN (16:58)
--- NOTE | 2021-05-25 17:00 | NUR ---
Pharmacy Vancomycin Dosing Note S:Consulted to monitor and dose vancomycin started 05/25/21. O:VALDO ERICKSON is a 66 year old F with an infected knee wound. Height: 4 feet, 11 inches Weight: 65.9 kg Dosing Weight: Actual Other Antibiotics: CEFEPIME 2 IV Q 12HRS FLAGYL 500 MG PO TID LABS: Last BUN: 18 Last Creatinine: 0.7 Creatinine Clearance: 48 mL/min Last WBC: 16.1 Last Procalcitonin: - Tmax (past 24 hours): 97.9 Microbiology: BLOOD, WOUND CX PENDING Vancomycin Dosing: Loading Dose: 1500 mg x1 Dosing Weight: Actual Target Trough: 10-20 A: Patient requires vancomycin for an infected knee wound, goal trough 10-20 mcg/ml. Her SCr is 0.7 with an eCrCl ~ 48 (using SCr = 1 due to age > 65). Patient received vancomycin 1500 mg in ER this AM. Initiate the following, differing from protocol in dosing frequency due to patient's true CrCl likely higher than estimated: P: 1. Initiate Vancomycin 1000 mg IV q18h 2. Follow up Trough level on 05/26/21 at 2030 3. Pharmacy will continue to monitor, follow and adjust therapy as needed. FANI GOTTLIEB RPH, 05/25/21 1700
[2021-05-25 17:58] VITALS: BP 105/40
[2021-05-25 19:00] VITALS: BP 105/45
[2021-05-25] MEDS: oxyCODONE IR 5 MG TABLET PO PRN (19:26)
[2021-05-25] MEDS: BUDESONIDE 0.5 MG/2 ML NEBU. NEB SCH (20:00)
--- NOTE | 2021-05-25 20:52 | PDOC2 ---
Consult: Patient seen evaluated today in room 404. She is seen today secondary to right knee drainage. She had a total knee replacement on May 05 and had done well up until 2 to 3 days ago when she noticed drainage from the top part of her incision that has progressed over the last couple days. She denies any fever chills or constitutional symptoms of infection and states that her pain has been increasing over the last 2 to 3 days. Denies any numbness or tingling or injury. PAST MEDICAL/SURGICAL/FAMILY HISTORY/SOCIAL HISTORY/ AND ROS were reviewed on intake to include multiple system review. Copied to EHR. EXAM: -------- Well-nourished well-developed patient General: No acute distress. HEENT: Normocephalic. Respiratory: Respirations are non-labored. Cardiovascular: No edema. Abdomen: soft Neurologic: Alert. Psychiatric: Cooperative. Right knee reveals dehiscence of the proximal one third of the incision with some mild purulent drainage at this point. Is generally tenderness to palpation. There are some mild erythema surrounding the incision and the proximal one half. Range of motion is somewhat limited due to pain. ASSESSMENT & PLAN: Status post right total knee replacement on May 05, 2021 with superficial and possible deep infection I discussed with the patient treatment options. We discussed options both surgical and nonsurgical (medication, injection, therapy, lifestyle modification, assistive devices and other modalities). We also discussed pros and cons of each. Greater than 30 minutes was spent with the patient with more than 50 percent of the time in discussion with regards to treatment and medical decision-making. Risk, benefits, alternative treatments, if any, and possible complications of surgery were discussed in detail, including, but not limited to: infection, scar, blood loss, chronic pain, need for reoperation, injury to nerve, artery or vein, blood clots, implant failure if used in procedure, and possible morbidity and mortality. Discussion of anticipated outcome, the post- operative course, and the potential rehab needs. I have recommended surgical incision drainage and debridement and possible polyethylene swap. KRYSTA CASTORENA DO May 25, 2021 8:52 pm
[2021-05-25] MEDS: MONTELUKAST SODIUM 10 MG TABLET. PO SCH (21:00)
[2021-05-25] MEDS: SENNOSIDES/DOCUSATE 8.6/50MG TABLET. PO SCH (21:00)
[2021-05-25] MEDS: traZODone 100 MG TABLET. PO SCH (21:00)
[2021-05-25] MEDS ORDERED: NON FORMULARY ITEM (Fluticasone/Salmeterol (Advair 500-50 Diskus) 2 INH) IH SCH (21:00)
[2021-05-25 23:00] VITALS: BP 96/41
[2021-05-26] VITALS (10 sets, daily range): BP systolic 97–124; BP diastolic 35–98
[2021-05-26] MEDS: MORPHINE SULFATE 4 MG/ML INJ. IVP PRN ×5 (03:24→17:07)
[2021-05-26] MEDS: VANCOMYCIN 1 GM in IV NORMAL SALINE 250ML 250 ML IV SCH ×2 (03:26→22:41)
[2021-05-26 05:03] LABS: CREATININE 0.7 mg/dL (0.6-1.0); GFR 83.7
[2021-05-26] MEDS: metroNIDAZOLE 500 MG TABLET PO SCH ×3 (06:00→22:40)
[2021-05-26] MEDS ORDERED: VANCOMYCIN 1 GM in IV DEXTROSE 5% 250 ML IV ONE (06:00)
[2021-05-26] MEDS: PANTOPRAZOLE 40 MG TABLET.DR. PO SCH ×2 (07:30→09:30)
[2021-05-26] MEDS: LEVOTHYROXINE 112 MCG TABLET PO SCH ×2 (07:30→09:30)
[2021-05-26] MEDS: BUDESONIDE 0.5 MG/2 ML NEBU. NEB SCH (07:38)
[2021-05-26] MEDS: ALBUTEROL SULFATE 2.5 MG/3 ML NEBU. NEB SCH ×3 (07:38→15:25)
[2021-05-26] MEDS: CETIRIZINE HCL 10 MG TABLET. PO SCH (08:05)
[2021-05-26] MEDS: CEFEPIME HCL IV Push 2 GM VIAL. IVP SCH ×2 (08:05→22:41)
[2021-05-26] MEDS: SENNOSIDES/DOCUSATE 8.6/50MG TABLET. PO SCH (08:05)
[2021-05-26] MEDS: FLUTICASONE 50MCG/NASAL SPRAY 16GM BOTTLE. NS SCH (08:09)
[2021-05-26] MEDS: oxyCODONE IR 5 MG TABLET PO PRN (09:30)
--- NOTE | 2021-05-26 10:21 | NUR ---
SW following. Discussed with RN, pt from home with spouse, room air, NPO, rapid COVID-19 negative. Pt having an I&D today. RN advised no SW needs at this time. SW will continue to follow.
[2021-05-26] MEDS ORDERED: MORPHINE SULFATE 2 MG/ML INJ. IVP PRN (10:45)
[2021-05-26] MEDS ORDERED: HYDROmorphone 2 MG/ML VIAL IVP PRN ×2 (10:45→21:15)
[2021-05-26] MEDS ORDERED: fentaNYL PF VIAL 100 MCG/2 ML VIAL IVP PRN ×5 (10:45→21:15)
[2021-05-26] MEDS ORDERED: PROCHLORPERAZINE 10 MG/2 ML VIAL. IVP PRN ×2 (10:45→21:15)
[2021-05-26] MEDS ORDERED: IV RINGERS,LACTATED 1000ML 1,000 ML IV SCH (11:00)
--- NOTE | 2021-05-26 12:02 | NUR ---
Dr. Ellis paged re: verification of Vanco ordered pre-op per pharmacy request.
--- NOTE | 2021-05-26 12:11 | CONS ---
DATE OF CONSULTATION: 05/26/2021 REFERRING PHYSICIAN: [facility]. REASON FOR CONSULTATION: Right Knee prosthetic joint infection. HISTORY OF PRESENT ILLNESS: This is a 66-year-old female who presented to the ER with complaints of wound drainage from the superior aspect of right TKA incision site. The patient underwent a right TKA on 05/05 and was doing well postoperatively until the above changes. The patient was seen in clinic on the and was told that wound was healing well. It started opening up with increasing drainage. The patient denies any fevers, chills, nausea, vomiting, diarrhea, or abdominal pain. Did complain of generalized weakness. She denies any trauma. The patient uses walker at home without any difficulty. Denies any headache, sore throat, dysuria, hematuria, other joint pain, shortness of breath, chest pain. White count was elevated. COVID was negative. CRP of 327. ESR of 72. Hemoglobin of 11.5. Knee x-ray showed no acute osseous abnormality, soft tissue swelling and small right knee effusion. Orthopedics is consulted. She is awaiting I and D and possible polyethylene swab later today. The patient is currently on vancomycin and cefepime. ID consultation has been requested for antibiotic management. PAST MEDICAL HISTORY: Hypothyroidism, asthma, DJD, right shoulder surgery, right TKA on 05/05. ALLERGIES: SULFA. SOCIAL HISTORY: Denies smoking, EtOH, or illicit drug use. Lives at home with . FAMILY HISTORY: As per HPI. CURRENT MEDICATIONS: IV vancomycin and cefepime. Other medications reviewed in medication list. The patient denies being on any antibiotics since last surgery. REVIEW OF SYSTEMS: As above, otherwise, negative. PHYSICAL EXAMINATION: VITAL SIGNS: Afebrile otherwise noted. GENERAL: Alert, oriented x 3, pleasant female, lying in bed comfortably, in no acute distress. HEENT: Normocephalic, atraumatic. Anicteric. No thrush. NECK: Supple, no JVD, no lymphadenopathy. LUNGS: Clear bilaterally. HEART: S1, S2. ABDOMEN: Soft, nontender, nondistended. Bowel sounds present. EXTREMITIES: Right lower extremity swelling present just above the knee dressing. No calf tenderness. Dressing taken down. Superior wound dehiscence noted at superior part of the incision with purulent drainage. There is new one in the middle, which is trying to open up, right knee effusion present, tenderness present. Range of motion is limited due to pain. Left lower extremity, no calf tenderness, no swelling. DERMATOLOGIC: Warm, dry, no generalized rash except for above. NEUROLOGIC: Alert, oriented x 3, grossly nonfocal. PSYCHIATRIC: Calm and cooperative. PIV looks clean. LABORATORY DATA: WBC 16.1, hemoglobin 11.5, hematocrit 34.9, platelets 478. ESR 72, CRP 327, creatinine 0.7, BUN 18. SARS COVID negative. IMAGING: Knee x-ray as above. Microbiology Blood culture pending at this time Right knee swab culture pending at this time IMPRESSION: 1. Right knee arthroplasty on 05/05. Right knee prosthetic joint infection. Awaiting surgery later today. 2. Degenerative joint disease. 3. Leukocytosis. 4. History of asthma. 5. Hypothyroidism. 6. HISTORY OF ALLERGIES TO SULFA. 7. Anemia. RECOMMENDATIONS: 1. Continue IV vancomycin and cefepime. 2. Vancomycin level per pharmacy protocol. 3. The patient is awaiting surgery later today. 4. Monitor labs and cultures. 5. Continue supportive care. 6. We will modify treatment depending on culture results. 7. PT and OT as directed. 8. Wound care as directed. Thank you for allowing me to participate in this patient's care. If you have any questions, do not hesitate to contact me. Discussed with nursing staff. GAB/KAITLIN STEVENS: John TID: [id number] [place]
[2021-05-26] MEDS ORDERED: MORPHINE SULFATE 5 MG, KETOROLAC 30MG VIAL 30 MG, ROPIVacaine 0.5% PF 60 ML, EPINEPHrin... INT ART ONE (14:30)
--- NOTE | 2021-05-26 16:00 | PDOC ---
[employer] PROGRESS NOTE Date of Service DOS: DATE: 05/26/21 TIME: 15:57 Chief Complaint Chief Complaint Humeral fracture History of Present Illness History of Present Illness Patient is 66-year-old female presented the emergency room today due to 3-day history of wound concerns. Patient underwent a right TKA on May 05 and initially did well postop in terms of wound healing. Said she was seen in clinic on the and wound was healing well then. However over the past 3 days she is noticed that the proximal parts of the surgical incision started "opening up." Also noticed increased drainage from the wound as well. She denies any sort of trauma to the site any sort of excessive movement. Reports some generalized unwell feeling also. I examined her patient was in a fair amount of pain. She could not sit still she was uncomfortable. She was really denying any sort of other symptoms includ ing headache, vision change, dizziness, chest pain, shortness of breath, abdominal pain, dysuria. 05/26 Patient evaluated and examined at bedside. Said her pain was pretty well controlled overnight. Planning for surgery today. Remains on vancomycin cefe pime and Flagyl. Continue for now. Please obtain cultures from surgery. PT OT ordered. Plan of care discussed with bedside RN. Vitals/I&O Vitals/I&O: Vital Signs Date Time Temp Pulse Resp B/P (MAP) Pulse Ox O2 Delivery O2 Flow Rate FiO2 05/26/21 15:48 Room Air 05/26/21 15:27 98 05/26/21 15:23 99.6 88 18 124/46 (72) 99.6 I & O 05/25/21 05/25/21 05/26/21 15:00 23:00 07:00 Intake Total 0 ml 160 ml Balance 0 ml 160 ml Physical Exam General: Alert, Oriented X3, Cooperative Heart: Regular rate, Normal S1, Normal S2 Lungs: Clear Abdomen: Normal bowel sounds, Soft, No tenderness Extremities: No edema, Normal pulses Skin: Other (Proximal portion of right knee incision with serosanguineous drainage) Labs Labs: Laboratory Tests Test 05/26/21 03:30 Creatinine 0.7 mg/dL (0.6-1.0) Estimated GFR (Cockcroft-Gault) 83.7 Assessment and Plan Assessmemt and Plan Wound dehiscence, history of allergic rhinitis asthma hypothyroidism -Patient underwent right TKA on May 05 initially healed well. Over the past 3 days noticed some wound dehiscence and increased drainage -Presented emergency room today and there was concern for wound infection -Blood cultures and wound cultures obtained emergency room. Received 1 dose vancomycin in emergency room -We will continue vancomycin add cefepime Flagyl. Infectious disease consulted. -We will keep n.p.o. for now -She reports that morphine and Dilaudid have really not been helping with pain. Will try fentanyl -Hold off DVT prophylaxis for now -Orthopedic team consulted planning for I&D today. -Home meds resumed as indicated. Comment Review of Relevant I have reviewed the following items chen (where applicable) has been applied. Medications: Current Medications Medications (Trade) Dose Ordered Sig/Abel Route PRN Reason Start Time Stop Time Status Last Admin Dose Admin Senna/Docusate Sodium (Senna Plus) 1 tab BID PO 05/25/21 21:00 05/25/21 21:00 Levothyroxine Sodium (Synthroid) 112 mcg DAILYAC PO 05/26/21 07:30 05/26/21 09:30 Montelukast Sodium (Singulair) 10 mg HS PO 05/25/21 21:00 05/25/21 21:00 Pantoprazole Sodium (Protonix) 40 mg DAILYAC PO 05/26/21 07:30 05/26/21 09:30 Trazodone HCl (Desyrel) 100 mg HS PO 05/25/21 21:00 05/25/21 21:00 Albuterol Sulfate (Ventolin Neb Soln) 2.5 mg RTQID NEB 05/25/21 16:00 05/26/21 15:25 Vancomycin HCl 1 gm/Sodium Chloride 250 ml @ 250 mls/hr Q18H IV 05/26/21 03:00 05/26/21 03:26 Justifications for Admission Other Justification KRYSTA DASH MD May 26, 2021 16:00
[2021-05-26] MEDS ORDERED: LIDOCAINE 2% PF 5 ML VIAL. ONE (19:57)
[2021-05-26] MEDS ORDERED: PHENYLEPHRINE in 0.9% NACL PF 1 MG/10 ML SYRINGE. IV ONE (19:57)
[2021-05-26] MEDS ORDERED: PROPOFOL 10 MG/ML (20ML) VIAL. IV ONE (19:57)
[2021-05-26] MEDS ORDERED: SEVOFLURANE 61 TO 120 MINUTES. IH ONE (19:57)
[2021-05-26] MEDS ORDERED: ONDANSETRON PF 4 MG/2 ML VIAL. ONE (20:06)
[2021-05-26] MEDS ORDERED: DEXAMETHASONE SOD PHOS 4 MG/ML VIAL ONE (20:06)
[2021-05-26] MEDS ORDERED: VANCOMYCIN 1 GM VIAL. ONE ×2 (20:06→20:30)
[2021-05-26] MEDS ORDERED: fentaNYL PF VIAL 100 MCG/2 ML VIAL ONE ×2 (20:38→20:47)
--- NOTE | 2021-05-26 20:44 | PDOC4 ---
OPERATIVE NOTE: DATE OF PROCEDURE: May 26, 2021 PROCEDURE: Right knee incision drainage with complete synovectomy and polyethylene exchange POSTOPERATIVE DIAGNOSIS: Right knee acute postoperative total knee infection SURGEON: Krysta Ellis DO HOTBED LEVER OPERATOR: None EBL: Approximately 50 cc SPECIMEN: None ANESTHESIA: General POSITION: Supine COMPLICATIONS: None. GROSS FINDINGS: Purulence throughout the subcutaneous as well as intra-articular portion of the knee consistent with acute postoperative periprosthetic joint infection. Cultures were taken intraoperatively DISPOSITION: To PACU stable. IMPLANT SPECIFICATIONS: 9 mm polyethylene exchange cruciate retaining DESCRIPTION OF PROCEDURE: Patient seen evaluated in the preoperative area site was marked and consent was verified. She has been receiving perioperative antibiotics. She was wheeled back the operating room and lied supine on the operative table. Department of anesthesia administered general anesthetic. Once adequately anesthetized tourniquet was placed on the right thigh. Sterile prep and drape performed the right lower extremity. After 3 minutes of elevation the tourniquet was inflated. The area of the previous incision was opened its entire length. Soft tissue dissection was carried out sharply down to the extensor mechanism. Purulence was encountered and cultures were taken. There was egress of mucopurulent material from a slight dehiscence of the distal portion of the arthrotomy. All visible sutures were removed with rongeur. The arthrotomy was opened at the previous layer. Copious irrigation was run through the knee and it was suctioned dry. At this point a subtotal synovectomy was performed with sharp and electrocautery dissection. Rongeur was used to aid in synovectomy. Outside the articular joint surface the joint capsule was sharply debrided using a rongeur as well as curette. Once any inflammatory tissue was satisfactorily removed the existing tibial polyethylene was extracted and copious irrigation was run through the knee again. At this point a final polyethylene of same size was implanted. The wound was again copiously irrigated suctioned dry. At this point Betadine lavage was performed followed by further copious irrigation for a total of 6 L with of irrigation. Vancomycin powder was placed in the joint as well as outside the joint and the surgical wound. A drain was placed. Layered closure was performed with monofilament sutures the skin was closed with mary. Large bulky dressing including a PIC O dressing was applied. Anesthesia was reversed and the patient was transferred to postop in apparent stable condition. DISPOSITION: Patient Will be transferred to postop and anticipate discharge when stable. Prognosis: Guarded secondary to the known downsides of periprosthetic joint infections although it is encouraging that this was caught very early in the postoperative recovery less than 3 weeks. KRYSTA ELLIS DO May 26, 2021 8:44 pm
[2021-05-26] MEDS ORDERED: CALCIUM CARBONATE 500 MG TAB.CHEW PO PRN (20:45)
[2021-05-26] MEDS ORDERED: METOCLOPRAMIDE HCL 10 MG/2 ML VIAL. IVP PRN (20:45)
[2021-05-26] MEDS ORDERED: 0.9 % SODIUM CHLORIDE 10 ML DISP.SYRIN. IV PRN (20:45)
[2021-05-26] MEDS ORDERED: diphenhydrAMINE 50 MG/ML VIAL IVP PRN (20:45)
[2021-05-26] MEDS ORDERED: PROCHLORPERAZINE 5 MG TABLET. PO PRN (20:45)
[2021-05-26] MEDS ORDERED: IV NORMAL SALINE 1000ML BAG 1,000 ML IV SCH (20:45)
[2021-05-26] MEDS ORDERED: DEXTROSE 50% 25 GM / 50ML DISP.SYRIN. IV PRN (20:45)
[2021-05-26] MEDS ORDERED: ZOLPIDEM 5 MG TABLET. PO PRN (20:45)
[2021-05-26] MEDS ORDERED: PROCHLORPERAZINE 10 MG/2 ML VIAL. ONE (21:12)
[2021-05-26] MEDS: MORPHINE SULFATE 2 MG/ML INJ. IVP PRN ×2 (21:15→21:24)
[2021-05-26] MEDS: MONTELUKAST SODIUM 10 MG TABLET. PO SCH (22:40)
[2021-05-26] MEDS: traZODone 100 MG TABLET. PO SCH (22:40)
[2021-05-27] VITALS (8 sets, daily range): BP systolic 93–113; BP diastolic 36–56
[2021-05-27] MEDS ORDERED: MAGNESIUM HYDROXIDE 2,400 MG/30 ML ORAL.SUSP. PO PRN (06:00)
[2021-05-27] MEDS: ONDANSETRON PF 4 MG/2 ML VIAL. IVP SCH ×4 (06:00→18:00)
[2021-05-27] MEDS: VANCOMYCIN PER PHARMACY MC PRN ×2 (06:07→06:54)
[2021-05-27] MEDS: metroNIDAZOLE 500 MG TABLET PO SCH ×3 (06:29→21:04)
[2021-05-27] MEDS: oxyCODONE IR 5 MG TABLET PO PRN ×5 (06:39→21:43)
[2021-05-27] MEDS: ONDANSETRON ODT 4 MG TAB.RAPDIS. PO SCH ×4 (06:40→18:03)
[2021-05-27] MEDS: BUDESONIDE 0.5 MG/2 ML NEBU. NEB SCH ×3 (06:48→20:39)
[2021-05-27] MEDS: ALBUTEROL SULFATE 2.5 MG/3 ML NEBU. NEB SCH ×3 (06:48→20:40)
[2021-05-27] MEDS: MORPHINE SULFATE 2 MG/ML INJ. IVP PRN (08:26)
--- NOTE | 2021-05-27 08:41 | PDOC ---
Infectious Disease Note Subjective: Subjective Patient is much better today Patient underwent I&D with polyethylene exchange yesterday Blood culture positive for staph aureus Swab culture positive for staph aureus Denies any fevers Postop pain is under control Denies nausea, vomiting, shortness of breath, diarrhea, abdominal pain, rash Otherwise as above Vital Signs: Vital Signs Vital Signs Date Time Temp Pulse Resp B/P (MAP) Pulse Ox O2 Delivery O2 Flow Rate FiO2 05/27/21 08:27 Room Air 05/27/21 08:03 96 05/27/21 07:00 97.8 74 18 110/45 (66) 97.8 05/26/21 21:15 6.0 Physical Exam: PHYSICAL EXAM GENERAL: Alert, oriented x 3, pleasant female, lying in bed comfortably, in no acute distress. HEENT: Normocephalic, atraumatic. Anicteric. No thrush. NECK: Supple, no JVD, no lymphadenopathy. LUNGS: Clear bilaterally. HEART: S1, S2. ABDOMEN: Soft, nontender, nondistended. Bowel sounds present. EXTREMITIES: Right lower extremity surgical wound dressing present with drain. Not taken down. Left lower extremity, no calf tenderness, no swelling. DERMATOLOGIC: Warm, dry, no generalized rash except for above. NEUROLOGIC: Alert, oriented x 3, grossly nonfocal. PSYCHIATRIC: Calm and cooperative. PIV looks clean. Medications: Inpatient Meds: Medications reviewed. Labs: Lab Laboratory Tests Test 05/27/21 07:10 Creatinine 0.7 mg/dL (0.6-1.0) Estimated GFR (Cockcroft-Gault) 83.7 Objective: Assessment: Right TKA PJI ESR &@ [id number] May 26, 2021 Status post I&D and polyethylene exchange with hardware retention Intraoperative findings noted "Purulence throughout the subcutaneous as well as intra-articular portion of the knee consistent with acute postoperative periprosthetic joint infection. Cultures were taken intraoperatively" Swab cultures staph aureus Bacteremia staph aureus present on admission 2. 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 Leukocytosis. 4. History of asthma. 5. Hypothyroidism. 6. HISTORY OF ALLERGIES TO SULFA. 7. Anemia. Plan: Plan of Care 1. Continue cefepime. 2. Change IV vancomycin to daptomycin, monitor CK closely 3. Repeat labs today CBC and CMP. Repeat blood cultures this a.m. 4. Monitor labs and cultures. 5. Continue supportive care. 6. We will modify treatment depending on culture results. 7. PT and OT as directed. 8. Wound care as directed. 9. Do not place PICC line until repeat blood cultures are clear for at least 48 to 72 hours. LEANN HAMMONDS MD May 27, 2021 08:41
[2021-05-27] MEDS: LEVOTHYROXINE 112 MCG TABLET PO SCH (08:48)
[2021-05-27] MEDS: MULTIVITAMIN with MINERAL TABLET. PO SCH (08:48)
[2021-05-27] MEDS: PANTOPRAZOLE 40 MG TABLET.DR. PO SCH (08:48)
[2021-05-27] MEDS: CETIRIZINE HCL 10 MG TABLET. PO SCH (08:48)
[2021-05-27] MEDS: CEFEPIME HCL IV Push 2 GM VIAL. IVP SCH ×2 (08:49→21:04)
[2021-05-27] MEDS: FERROUS SULFATE 325 MG TABLET. PO SCH ×2 (08:49→18:03)
[2021-05-27] MEDS: ACETAMINOPHEN 500 MG TABLET PO SCH ×3 (08:49→21:04)
[2021-05-27] MEDS: FLUTICASONE 50MCG/NASAL SPRAY 16GM BOTTLE. NS SCH (08:49)
[2021-05-27] MEDS: SENNOSIDES/DOCUSATE 8.6/50MG TABLET. PO SCH (08:49)
[2021-05-27 08:52] LABS: BASO % 0 % (0-3); EOS % 0 % (0-3); HEMATOCRIT 31.3 % (36.0-47.0); HEMOGLOBIN 10.3 g/dL (12.0-15.5); LYMPH # 0.8 x10^3/uL (1.0-4.8); LYMPH % 7 % (24-48); MEAN CORPUSCULAR HEMOGLOBIN 30 pg (25-35); MEAN CORPUSCULAR HGB CONC 33 g/dL (31-37); MEAN CORPUSCULAR VOLUME 90 fL (79-100); MONO # 0.7 x10^3/uL (0.0-1.1); MONO % 6 % (0-9); NEUT # 9.7 x10^3/uL (1.8-7.7); NEUT % 86 % (31-73); PLATELET COUNT 456 x10^3/uL (140-400); RED BLOOD COUNT 3.48 x10^6/uL (3.50-5.40); RED CELL DISTRIBUTION WIDTH 14.4 % (11.5-14.5); WHITE BLOOD COUNT 11.2 x10^3/uL (4.0-11.0)
[2021-05-27 09:13] LABS: ALBUMIN 2.4 g/dL (3.4-5.0); ALBUMIN/GLOBULIN RATIO 0.6 (1.0-1.7); CALCIUM 8.5 mg/dL (8.5-10.1); CREATININE 0.6 mg/dL (0.6-1.0); POTASSIUM 3.6 mmol/L (3.5-5.1); TOTAL BILIRUBIN 0.5 mg/dL (0.2-1.0); TOTAL PROTEIN 6.6 g/dL (6.4-8.2)
--- NOTE | 2021-05-27 11:11 | PDOC ---
[facility] PROGRESS NOTE Date of Service DOS: DATE: 05/27/21 TIME: 11:08 Chief Complaint Chief Complaint Wound dehiscence, history of allergic rhinitis asthma hypothyroidism -Patient underwent right TKA on May 05 initially healed well. Over the past 3 days noticed some wound dehiscence and increased drainage -Presented emergency room today and there was concern for wound infection -Blood cultures and wound cultures obtained emergency room. Received 1 dose vancomycin in emergency room -We will continue vancomycin add cefepime Flagyl. Infectious disease consulted. Recommending Dapto cefepime -Diet as tolerated -She reports that morphine and Dilaudid have really not been helping with pain. Will try fentanyl, pain well controlled -Orthopedic team performed I&D 05/26 -Home meds resumed as indicated. History of Present Illness History of Present Illness Patient is 66-year-old female presented the emergency room today due to 3-day history of wound concerns. Patient underwent a right TKA on May 05 and initially did well postop in terms of wound healing. Said she was seen in clinic on the and wound was healing well then. However over the past 3 days she is noticed that the proximal parts of the surgical incision started "opening up." Also noticed increased drainage from the wound as well. She denies any sort of trauma to the site any sort of excessive movement. Reports some generalized unwell feeling also. I examined her patient was in a fair amount of pain. She could not sit still she was uncomfortable. She was really denying any sort of other symptoms including headache, vision change, dizziness, chest pain, shortness of breath, abdominal pain, dysuria. 05/26 Patient evaluated and examined at bedside. Said her pain was pretty well controlled overnight. Planning for surgery today. Remains on vancomycin cefepime and Flagyl. Continue for now. Please obtain cultures from surgery. PT OT ordered. Plan of care discussed with bedside RN. 05/27 Patient evaluated examined at bedside. She was doing well says her pain is well controlled. Tolerated surgery well. MRSA positive in blood and wound. Continue Dapto cefepime. Plan of care discussed with bedside RN. Vitals/I&O Vitals/I&O: Vital Signs Date Time Temp Pulse Resp B/P (MAP) Pulse Ox O2 Delivery O2 Flow Rate FiO2 05/27/21 11:00 97.7 90 18 93/55 (68) 98 Room Air 97.7 05/26/21 21:15 6.0 I & O 05/26/21 05/26/21 05/27/21 15:00 23:00 07:00 Intake Total 0 ml 850 ml 1390 ml Output Total 50 ml 460 ml Balance 0 ml 800 ml 930 ml Physical Exam Physical Exam: GENERAL: Alert, oriented x 3, pleasant female, lying in bed comfortably, in no acute distress. HEENT: Normocephalic, atraumatic. Anicteric. No thrush. NECK: Supple, no JVD, no lymphadenopathy. LUNGS: Clear bilaterally. HEART: S1, S2. ABDOMEN: Soft, nontender, nondistended. Bowel sounds present. EXTREMITIES: Right lower extremity surgical wound dressing present with drain. Not taken down. Left lower extremity, no calf tenderness, no swelling. DERMATOLOGIC: Warm, dry, no generalized rash except for above. NEUROLOGIC: Alert, oriented x 3, grossly nonfocal. PSYCHIATRIC: Calm and cooperative. PIV looks clean. General: Alert, Oriented X3, Cooperative Heart: Regular rate, Normal S1, Normal S2 Lungs: Clear Abdomen: Normal bowel sounds, Soft, No tenderness Extremities: No edema, Normal pulses Skin: Other (Proximal portion of right knee incision with serosanguineous [place] inage) Labs Labs: Laboratory Tests Test 05/27/21 07:10 White Blood Count 11.2 x10^3/uL (4.0-11.0) Red Blood Count 3.48 x10^6/uL (3.50-5.40) Hemoglobin 10.3 g/dL (12.0-15.5) Hematocrit 31.3 % (36.0-47.0) Mean Corpuscular Volume 90 fL (79-100) Mean Corpuscular Hemoglobin 30 pg (25-35) Mean Corpuscular Hemoglobin Concent 33 g/dL (31-37) Red Cell Distribution Width 14.4 % (11.5-14.5) Platelet Count 456 x10^3/uL (140-400) Neutrophils (%) (Auto) 86 % (31-73) Lymphocytes (%) (Auto) 7 % (24-48) Monocytes (%) (Auto) 6 % (0-9) Eosinophils (%) (Auto) 0 % (0-3) Basophils (%) (Auto) 0 % (0-3) Neutrophils # (Auto) 9.7 x10^3/uL (1.8-7.7) Lymphocytes # (Auto) 0.8 x10^3/uL (1.0-4.8) Monocytes # (Auto) 0.7 x10^3/uL (0.0-1.1) Eosinophils # (Auto) 0.0 x10^3/uL (0.0-0.7) Basophils # (Auto) 0.0 x10^3/uL (0.0-0.2) Sodium Level 141 mmol/L (136-145) Potassium Level 3.6 mmol/L (3.5-5.1) Chloride Level 104 mmol/L (98-107) Carbon Dioxide Level 26 mmol/L (21-32) Anion Gap 11 (6-14) Blood Urea Nitrogen 11 mg/dL (7-20) Creatinine 0.6 mg/dL (0.6-1.0) Estimated GFR (Cockcroft-Gault) 100.0 BUN/Creatinine Ratio 18 (6-20) Glucose Level 135 mg/dL (70-99) Calcium Level 8.5 mg/dL (8.5-10.1) Total Bilirubin 0.5 mg/dL (0.2-1.0) Aspartate Amino Transf (AST/SGOT) 22 U/L (15-37) Alanine Aminotransferase (ALT/SGPT) 15 U/L (14-59) Alkaline Phosphatase 91 U/L (46-116) Total Protein 6.6 g/dL (6.4-8.2) Albumin 2.4 g/dL (3.4-5.0) Albumin/Globulin Ratio 0.6 (1.0-1.7) Assessment and Plan Assessmemt and Plan Problems Medical Problems: (1) Wound infection after surgery Status: Acute Comment Review of Relevant I have reviewed the following items chen (where applicable) has been applied. Medications: Current Medications Medications (Trade) Dose Ordered Sig/Abel Route PRN Reason Start Time Stop Time Status Last Admin Dose Admin Vancomycin HCl (Vancomycin) 1 gm STK-MED ONCE .ROUTE 05/26/21 20:06 05/26/21 20:06 DC 05/26/21 20:02 Vancomycin HCl (Vancomycin) 1 gm STK-MED ONCE .ROUTE 05/26/21 20:30 05/26/21 20:30 DC 05/26/21 20:02 Multivitamins (Thera M Plus) 1 tab DAILY PO 05/27/21 09:00 05/27/21 08:48 Ferrous Sulfate (Feosol) 325 mg BIDWMEALS PO 05/27/21 08:00 05/27/21 08:49 Sodium Chloride 1,000 ml @ 40 mls/hr Q24H IV 05/26/21 20:45 05/27/21 08:00 DC 05/26/21 22:45 Acetaminophen (Tylenol) 1,000 mg Q6H PO 05/27/21 09:00 05/27/21 08:49 Ondansetron HCl (Zofran Odt) 4 mg Q6HRS PO 05/27/21 00:00 05/27/21 18:01 05/27/21 06:40 Morphine Sulfate (Morphine Sulfate) 1 mg PRN Q10MIN PRN IVP SEVERE PAIN 7-10 05/26/21 21:15 05/27/21 21:14 05/26/21 21:24 Prochlorperazine Edisylate (Compazine) 5 mg PACU PRN PRN IVP NAUSEA, MRX1 05/26/21 21:15 05/27/21 21:14 05/26/21 21:17 Justifications for Admission Other Justification KRYSTA DASH MD May 27, 2021 11:11
[2021-05-27] MEDS: DAPTOmycin (GENERIC) IVPB 420 MG in IV NORMAL SALINE 50ML 50 ML IV SCH (11:17)
[2021-05-27] MEDS ORDERED: ONDANSETRON ODT 4 MG TAB.RAPDIS. PO PRN (12:00)
[2021-05-27] MEDS: HEPARIN for SUB-Q USE 5,000 UNIT/ML VIAL. SQ SCH ×2 (12:44→21:09)
[2021-05-27] MEDS ORDERED: BISACODYL 10 MG SUPP.RECT. PR PRN (16:00)
[2021-05-27] MEDS ORDERED: VANCOMYCIN 1 GM in IV NORMAL SALINE 250ML 250 ML IV SCH (17:00)
--- NOTE | 2021-05-27 18:56 | PDOC ---
Provider Note Date of Service: DATE: 05/27/21 TIME: 18:53 Provider Note Patient seen and evaluated today in room 404. She resting comfortably in bed. Rates her pain at 4 out of 10. Vital signs are stable patient is afebrile WBC down to 11 today from 16. MRSA positive from wound culture Pending intraoperative culture Right knee is clean dry and intact with dressing. Mild tenderness to palpation. Drain is been removed. Diagnosis: Status post right knee open drainage with irrigation and subtotal synovectomy and polyethylene exchange secondary to periprosthetic joint infection acute Patient can weight-bear as tolerated. Maintain current dressing. We will await final cultures likely presumed MRSA but will wait for final cultures and sensitivity. Appreciate infectious disease and internal medicine input. Justifications for Admission Other Justification KRYSTA CASTORENA DO May 27, 2021 18:56
[2021-05-27] MEDS: traZODone 100 MG TABLET. PO SCH (21:04)
[2021-05-27] MEDS: MONTELUKAST SODIUM 10 MG TABLET. PO SCH (21:04)
[2021-05-27] MEDS: LACTOBACILLUS RHAMNOSUS GG 1 CAPSULE. PO SCH (21:04)
[2021-05-28 02:36] VITALS: BP 109/60
[2021-05-28] MEDS: ACETAMINOPHEN 500 MG TABLET PO SCH ×4 (02:50→22:04)
[2021-05-28] MEDS: oxyCODONE IR 5 MG TABLET PO PRN ×6 (02:50→22:03)
[2021-05-28 04:57] LABS: HEMATOCRIT 27.7 % (36.0-47.0)
[2021-05-28 05:14] LABS: CREATININE 0.8 mg/dL (0.6-1.0); GFR 71.8
[2021-05-28] MEDS: metroNIDAZOLE 500 MG TABLET PO SCH ×3 (05:55→22:03)
[2021-05-28] MEDS: HEPARIN for SUB-Q USE 5,000 UNIT/ML VIAL. SQ SCH ×3 (05:59→22:15)
[2021-05-28] MEDS: BUDESONIDE 0.5 MG/2 ML NEBU. NEB SCH ×2 (06:57→21:19)
[2021-05-28] MEDS: ALBUTEROL SULFATE 2.5 MG/3 ML NEBU. NEB SCH ×2 (06:57→21:19)
[2021-05-28 07:00] VITALS: BP 91/55
[2021-05-28] MEDS: PANTOPRAZOLE 40 MG TABLET.DR. PO SCH (08:08)
[2021-05-28] MEDS: LEVOTHYROXINE 112 MCG TABLET PO SCH (08:08)
[2021-05-28] MEDS: MORPHINE SULFATE 2 MG/ML INJ. IVP PRN ×2 (08:09→19:46)
--- NOTE | 2021-05-28 08:54 | PDOC ---
Infectious Disease Note Subjective: Subjective Patient without complaints Yesterday had postop site pain so was not able to undergo PT and OT Denies any fevers Denies nausea, vomiting, shortness of breath, diarrhea, abdominal pain, rash Otherwise as above Vital Signs: Vital Signs Vital Signs Date Time Temp Pulse Resp B/P (MAP) Pulse Ox O2 Delivery O2 Flow Rate FiO2 05/28/21 08:09 Room Air 05/28/21 07:00 98.1 16 16 91/55 (67) 95 98.1 Physical Exam: PHYSICAL EXAM GENERAL: Alert, oriented x 3, pleasant female, lying in bed comfortably, in no acute distress. HEENT: Normocephalic, atraumatic. Anicteric. No thrush. NECK: Supple, no JVD, no lymphadenopathy. LUNGS: Clear bilaterally. HEART: S1, S2. ABDOMEN: Soft, nontender, nondistended. Bowel sounds present. EXTREMITIES: Right lower extremity surgical wound dressing present with Prevena wound. Drain removed.. Not taken down. Left lower extremity, no calf tenderness, no swelling. DERMATOLOGIC: Warm, dry, no generalized rash except for above. NEUROLOGIC: Alert, oriented x 3, grossly nonfocal. PSYCHIATRIC: Calm and cooperative. PIV looks clean. Medications: Inpatient Meds: Medications reviewed. Labs: Lab Laboratory Tests Test 05/28/21 04:40 Hemoglobin 9.0 g/dL (12.0-15.5) Hematocrit 27.7 % (36.0-47.0) Mean Corpuscular Hemoglobin Concent 33 g/dL (31-37) Creatinine 0.8 mg/dL (0.6-1.0) Estimated GFR (Cockcroft-Gault) 71.8 Creatine Kinase 139 U/L (26-192) Objective: Assessment: Right TKA PJI ESR & [id number] May 26, 2021 Status post I&D and polyethylene exchange with hardware retention Intraoperative findings noted "Purulence throughout the subcutaneous as well as intra-articular portion of the knee consistent with acute postoperative periprosthetic joint infection. Cultures were taken intraoperatively" Swab cultures staph aureus, MRSA Bacteremia s MRSA present on admission; source right TKA PJI 2. 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 Leukocytosis. 4. History of asthma. 5. Hypothyroidism. 6. HISTORY OF ALLERGIES TO SULFA. 7. Anemia. Plan: Plan of Care Continue daptomycin, CK normal 05/27/2021 DC cefepime Follow-up repeat blood cultures Follow-up intraoperative cultures Monitor labs and cultures Wound/drain management as directed PT and OT as directed Do not place PICC line until repeat blood cultures are clear for at least 48 to 72 hours. Tentative discharge Tuesday if stable and repeat blood cultures remain negative Discussed with patient, and daughter at bedside Discussed with LEANN NGUYEN MD May 28, 2021 08:54
[2021-05-28] MEDS: FLUTICASONE 50MCG/NASAL SPRAY 16GM BOTTLE. NS SCH (09:00)
[2021-05-28] MEDS: LACTOBACILLUS RHAMNOSUS GG 1 CAPSULE. PO SCH ×2 (09:15→22:03)
[2021-05-28] MEDS: CETIRIZINE HCL 10 MG TABLET. PO SCH (09:15)
[2021-05-28] MEDS: SENNOSIDES/DOCUSATE 8.6/50MG TABLET. PO SCH (09:15)
[2021-05-28] MEDS: MULTIVITAMIN with MINERAL TABLET. PO SCH (09:16)
[2021-05-28] MEDS: FERROUS SULFATE 325 MG TABLET. PO SCH ×2 (09:16→17:35)
[2021-05-28] MEDS: CEFEPIME HCL IV Push 2 GM VIAL. IVP SCH (09:18)
[2021-05-28 11:00] VITALS: BP 97/58
[2021-05-28] MEDS: DAPTOmycin (GENERIC) IVPB 420 MG in IV NORMAL SALINE 50ML 50 ML IV SCH (11:21)
--- NOTE | 2021-05-28 12:25 | NUR ---
SW following. Discussed with RN, pt from home with spouse, room air, regular diet. OT recommending outpatient therapy. Per ID note - awaiting repeat blood cultures with tentative DC plan for Tuesday pending results. SW awaiting return call from RN. SW will continue to follow.
--- NOTE | 2021-05-28 12:55 | PDOC ---
[employer] [facility] PROGRESS NOTE Date of Service DOS: DATE: 05/28/21 TIME: 12:53 Chief Complaint Chief Complaint Wound dehiscence, history of allergic rhinitis asthma hypothyroidism, MRSA bacteremia -Patient underwent right TKA on May 05 initially healed well. Over the past 3 days noticed some wound dehiscence and increased drainage -Presented emergency room today and there was concern for wound infection -Blood cultures and wound cultures obtained emergency room. Received 1 dose vancomycin in emergency room Infectious disease consulted. Continue Dapto. DC cefepime -Diet as tolerated -She reports that morphine and Dilaudid have really not been helping with pain. Try oral pain meds -Orthopedic team performed I&D 05/26 -Home meds resumed as indicated. History of Present Illness History of Present Illness Patient is 66-year-old female presented the emergency room today due to 3-day history of wound concerns. Patient underwent a right TKA on May 05 and initially did well postop in terms of wound healing. Said she was seen in clinic on the and wound was healing well then. However over the past 3 days she is noticed that the proximal parts of the surgical incision started "opening up." Also noticed increased drainage from the wound as well. She denies any sort of trauma to the site any sort of excessive movement. Reports some generalized unwell feeling also. I examined her patient was in a fair amount of pain. She could not sit still she was uncomfortable. She was really denying any sort of other symptoms includ ing headache, vision change, dizziness, chest pain, shortness of breath, abdominal pain, dysuria. 05/26 Patient evaluated and examined at bedside. Said her pain was pretty well controlled overnight. Planning for surgery today. Remains on vancomycin cefe pime and Flagyl. Continue for now. Please obtain cultures from surgery. PT OT ordered. Plan of care discussed with bedside RN. 05/27 Patient evaluated examined at bedside. She was doing well says her pain is well controlled. Tolerated surgery well. MRSA positive in blood and wound. Continue Dapto cefepime. Plan of care discussed with bedside RN. 05/28 Patient evaluated examined at bedside. Was resting in bed. Says her pain had improved. Tolerating antibiotics well. Appears that she is gone need a long- term course of daptomycin. Continue for now. Hold off PICC line until repeat cultures negative. Plan of care discussed bedside RN Vitals/I&O Vitals/I&O: Vital Signs Date Time Temp Pulse Resp B/P (MAP) Pulse Ox O2 Delivery O2 Flow Rate FiO2 05/28/21 11:00 98.2 81 16 97/58 (71) 98 Room Air 98.2 05/28/21 09:32 6.0 I & O 05/27/21 05/27/21 05/28/21 15:00 23:00 07:00 Intake Total 100 ml Balance 100 ml Physical Exam Physical Exam: GENERAL: Alert, oriented x 3, pleasant female, lying in bed comfortably, in no acute distress. HEENT: Normocephalic, atraumatic. Anicteric. No thrush. NECK: Supple, no JVD, no lymphadenopathy. LUNGS: Clear bilaterally. HEART: S1, S2. ABDOMEN: Soft, nontender, nondistended. Bowel sounds present. EXTREMITIES: Right lower extremity surgical wound dressing present with Prevena wound. Drain removed.. Not taken down. Left lower extremity, no calf tenderness, no swelling. DERMATOLOGIC: Warm, dry, no generalized rash except for above. NEUROLOGIC: Alert, oriented x 3, grossly nonfocal. PSYCHIATRIC: Calm and cooperative. PIV looks clean. General: Alert, Oriented X3, Cooperative Heart: Regular rate, Normal S1, Normal S2 Lungs: Clear Abdomen: Normal bowel sounds, Soft, No tenderness Extremities: No edema, Normal pulses Skin: Other (Proximal portion of right knee incision with serosanguineous drainage) Labs Labs: Laboratory Tests Test 05/28/21 04:40 Hemoglobin 9.0 g/dL (12.0-15.5) Hematocrit 27.7 % (36.0-47.0) Mean Corpuscular Hemoglobin Concent 33 g/dL (31-37) Creatinine 0.8 mg/dL (0.6-1.0) Estimated GFR (Cockcroft-Gault) 71.8 Creatine Kinase 139 U/L (26-192) Assessment and Plan Assessmemt and Plan Problems Medical Problems: (1) Wound infection after surgery Status: Acute Comment Review of Relevant I have reviewed the following items chen (where applicable) has been applied. Medications: Current Medications Medications (Trade) Dose Ordered Sig/Abel Route PRN Reason Start Time Stop Time Status Last Admin Dose Admin Albuterol Sulfate (Ventolin Neb Soln) 2.5 mg BID NEB 05/27/21 21:00 05/28/21 06:57 Budesonide (Pulmicort) 0.5 mg RTBID NEB 05/27/21 20:00 05/28/21 06:57 Lactobacillus Rhamnosus (Culturelle) 1 cap BID PO 05/27/21 21:00 05/28/21 09:15 Justifications for Admission Other Justification KRYSTA DASH MD May 28, 2021 12:55
[2021-05-28 15:00] VITALS: BP 115/51
[2021-05-28 19:00] VITALS: BP 124/53
[2021-05-28] MEDS: MONTELUKAST SODIUM 10 MG TABLET. PO SCH (22:03)
[2021-05-28] MEDS: traZODone 100 MG TABLET. PO SCH (22:04)
[2021-05-28 23:00] VITALS: BP 99/43
[2021-05-29 03:00] VITALS: BP 109/61
[2021-05-29] MEDS: ACETAMINOPHEN 500 MG TABLET PO SCH ×4 (03:00→21:33)
[2021-05-29 04:04] LABS: HEMATOCRIT 28.2 % (36.0-47.0); HEMOGLOBIN 9.4 g/dL (12.0-15.5)
[2021-05-29] MEDS: metroNIDAZOLE 500 MG TABLET PO SCH ×3 (06:04→21:32)
[2021-05-29] MEDS: HEPARIN for SUB-Q USE 5,000 UNIT/ML VIAL. SQ SCH ×3 (06:07→21:42)
[2021-05-29 07:00] VITALS: BP 100/65
[2021-05-29] MEDS: BUDESONIDE 0.5 MG/2 ML NEBU. NEB SCH ×2 (07:15→21:16)
[2021-05-29] MEDS: ALBUTEROL SULFATE 2.5 MG/3 ML NEBU. NEB SCH ×2 (07:15→21:16)
[2021-05-29] MEDS: FERROUS SULFATE 325 MG TABLET. PO SCH ×2 (07:54→17:00)
[2021-05-29] MEDS: LEVOTHYROXINE 112 MCG TABLET PO SCH (07:54)
[2021-05-29] MEDS: CETIRIZINE HCL 10 MG TABLET. PO SCH (07:54)
[2021-05-29] MEDS: LACTOBACILLUS RHAMNOSUS GG 1 CAPSULE. PO SCH ×2 (07:54→21:32)
[2021-05-29] MEDS: SENNOSIDES/DOCUSATE 8.6/50MG TABLET. PO SCH (07:55)
[2021-05-29] MEDS: MULTIVITAMIN with MINERAL TABLET. PO SCH (07:55)
[2021-05-29] MEDS: PANTOPRAZOLE 40 MG TABLET.DR. PO SCH (07:55)
[2021-05-29] MEDS: FLUTICASONE 50MCG/NASAL SPRAY 16GM BOTTLE. NS SCH (08:11)
[2021-05-29] MEDS: ONDANSETRON PF 4 MG/2 ML VIAL. IVP PRN (08:27)
--- NOTE | 2021-05-29 09:40 | PDOC ---
Infectious Disease Note Subjective: Subjective Patient is not feeling well today. Has nausea. Has postop site pain. Was not able to undergo PT and OT. Sister at bedside ROS: ROS Denies fevers, chills nausea, vomiting, shortness of breath, diarrhea, abdominal pain, rash Vital Signs: Vital Signs Vital Signs Date Time Temp Pulse Resp B/P (MAP) Pulse Ox O2 Delivery O2 Flow Rate FiO2 05/29/21 07:16 98 Room Air 05/29/21 03:00 97.5 76 18 109/61 (77) 97.5 05/28/21 17:36 6.0 Physical Exam: PHYSICAL EXAM GENERAL: Alert, oriented x 3, pleasant female, lying in bed comfortably, in no acute distress. HEENT: Normocephalic, atraumatic. Anicteric. No thrush. NECK: Supple, no JVD, no lymphadenopathy. LUNGS: Clear bilaterally. HEART: S1, S2. ABDOMEN: Soft, nontender, nondistended. Bowel sounds present. EXTREMITIES: Right lower extremity surgical wound dressing present with Prevena wound. Drain removed.. Not taken down. Left lower extremity, no calf tenderness, no swelling. DERMATOLOGIC: Warm, dry, no generalized rash except for above. NEUROLOGIC: Alert, oriented x 3, grossly nonfocal. PSYCHIATRIC: Calm and cooperative. PIV looks clean. Medications: Inpatient Meds: Medications reviewed. Labs: Lab Laboratory Tests Test 05/29/21 03:45 Hemoglobin 9.4 g/dL (12.0-15.5) Hematocrit 28.2 % (36.0-47.0) Mean Corpuscular Hemoglobin Concent 33 g/dL (31-37) Objective: Assessment: Right TKA PJI ESR & [id number] Swab cultures positive for MRSA May 26, 2021 Status post I&D and polyethylene exchange with hardware retention Intraoperative findings noted "Purulence throughout the subcutaneous as well as intra-articular portion of the knee consistent with acute postoperative periprosthetic joint infection. Cultures were taken intraoperatively" Intraoperative cultures staph aureus Bacteremia MRSA present on admission; source right TKA PJI Repeat blood cultures are negative from 05/27/2021 2. 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 Leukocytosis. 4. History of asthma. 5. Hypothyroidism. 6. HISTORY OF ALLERGIES TO SULFA. 7. Anemia. Plan: Plan of Care Continue daptomycin 8 mg/kg daily, CK normal 05/27/2021 Follow-up intraoperative cultures until final for staph aureus Follow-up repeat blood cultures negative so far Monitor labs and cultures Wound/drain management as directed PT and OT as directed PICC line to be placed later this p.m. if repeat blood cultures remain negative Maintain aspiration precautions Pain control per orthopedics Discussed with sister at bedside Discussed with LEANN NGUYEN MD May 29, 2021 09:40
--- NOTE | 2021-05-29 10:12 | NUR ---
SW following. Discussed with RN, pt from home with spouse, room air, regular diet. PICC line to be placed 48-72 hours after blood cultures come back, per RN. Pt will likely be here through the weekend. SW will continue to follow.
[2021-05-29 11:00] VITALS: BP 109/61
[2021-05-29] MEDS: DAPTOmycin (GENERIC) IVPB 420 MG in IV NORMAL SALINE 50ML 50 ML IV SCH (11:00)
[2021-05-29] MEDS ORDERED: LORazepam INTENSOL 2 MG/ML ORAL.CONC SL STA (12:44)
--- NOTE | 2021-05-29 14:02 | NUR ---
Allergies: Sulfa BUN 11 Cr 0.8 Platelets 456 Blood culture done Yes blood culture results No growth Order Verified Y Consent signed Y Previous PICC placement N Past Medical/Surgical history and current diagnosis reviewed Y Patient Medical /Surgical History Related to PICC line placement Infectious Disease consult Special considerations for PICC line placement None PICC placement indication Caustic medication class drug usage, watermaster antibiotic usage, Multiple/ Frequent blood draws, Poor peripheral intravenous access Matty WILCOX
--- NOTE | 2021-05-29 14:06 | NUR ---
Procedure: Following complete explanation of the PICC procedure including the indications, risks, and potential complications, informed consent was obtained. The possibility for infection was discussed along with signs, symptoms, and prevention. All the questions were answered. Written and verbal patient education was provided. Hand hygiene performed. Standardized central line checklist was utilized. The patient was placed in the supine position, the arm was prepped with chlorhexidine and patient draped with maximum sterile barrier. 4 mL 1% lidocaine was infiltrated into the skin to provide local anesthesia. A thorough assessment of RIGHT upper extremity completed. Using real-time ultrasound guidance and standardized micro puncture set, the BRACHIAL vein was punctured and a peel away sheath was placed using the modified Seldinger technique. A tip location device was used to ensure adequate catheter placement. The catheter was secured using a securement device and an antimicrobial patch was applied directly on the insertion site followed by a transparent dressing. All ports withdraw blood and flush without resistance. Patient tolerated the procedure without apparent complication(s). SINGLE Lumen Power PICC placement successful and uncomplicated. Placement verified by EKG tip confirmation system and/or chest x-ray. Tip located in the CAJ Complications: NONE
--- NOTE | 2021-05-29 14:42 | RAD ---
Portable chest x-ray without comparison for PICC line placement. FINDINGS: There is a right PICC line with the distal tip in the superior vena cava. This appears suit able for use. Subtle subsegmental atelectasis in the left lung base. No other significant lung parenc hymal abnormality. Heart size mildly enlarged. Right shoulder prosthesis. IMPRESSION: 1. PICC line with the distal tip in the superior vena cava, suitable for use. Electronically signed by: Bowen Gibson MD (05/29/2021 2:39 PM) [id number]
[2021-05-29 15:00] VITALS: BP 115/62
[2021-05-29] MEDS: oxyCODONE IR 5 MG TABLET PO PRN ×2 (15:07→22:26)
--- NOTE | 2021-05-29 15:12 | NUR ---
Patient with PICC line to right upper arm patent flush well.ready for use
[2021-05-29 19:29] VITALS: BP 117/59
--- NOTE | 2021-05-29 20:55 | PDOC ---
[facility] PROGRESS NOTE Date of Service DOS: DATE: 05/29/21 TIME: 20:54 Chief Complaint Chief Complaint Wound dehiscence, history of allergic rhinitis asthma hypothyroidism, MRSA bacteremia -Patient underwent right TKA on May 05 initially healed well. Over the past 3 days noticed some wound dehiscence and increased drainage -Presented emergency room today and there was concern for wound infection -Blood cultures and wound cultures obtained emergency room. Received 1 dose vancomycin in emergency room Infectious disease consulted. Continue Dapto. DC cefepime -Diet as tolerated -She reports that morphine and Dilaudid have really not been helping with pain. Try oral pain meds -Orthopedic team performed I&D 05/26 -Home meds resumed as indicated. History of Present Illness History of Present Illness Patient is 66-year-old female presented the emergency room today due to 3-day history of wound concerns. Patient underwent a right TKA on May 05 and initially did well postop in terms of wound healing. Said she was seen in clinic on the and wound was healing well then. However over the past 3 days she is noticed that the proximal parts of the surgical incision started "opening up." Also noticed increased drainage from the wound as well. She denies any sort of trauma to the site any sort of excessive movement. Reports some generalized unwell feeling also. I examined her patient was in a fair amount of pain. She could not sit still she was uncomfortable. She was really denying any sort of other symptoms includ ing headache, vision change, dizziness, chest pain, shortness of breath, abdominal pain, dysuria. 05/26 Patient evaluated and examined at bedside. Said her pain was pretty well controlled overnight. Planning for surgery today. Remains on vancomycin cefe pime and Flagyl. Continue for now. Please obtain cultures from surgery. PT OT ordered. Plan of care discussed with bedside RN. 05/27 Patient evaluated examined at bedside. She was doing well says her pain is well controlled. Tolerated surgery well. MRSA positive in blood and wound. Continue Dapto cefepime. Plan of care discussed with bedside RN. 05/28 Patient evaluated examined at bedside. Was resting in bed. Says her pain had improved. Tolerating antibiotics well. Appears that she is gone need a long- term course of daptomycin. Continue for now. Hold off PICC line until repeat cultures negative. Plan of care discussed bedside RN 1/5 Patient evaluated and examined at bedside. She was not doing very well today complaining of a fair bit of pain. Unable to participate in PT OT. Will evaluate pain medications. Continue IV antibiotics. Plan of care discussed with bedside RN. Vitals/I&O Vitals/I&O: Vital Signs Date Time Temp Pulse Resp B/P (MAP) Pulse Ox O2 Delivery O2 Flow Rate FiO2 05/29/21 19:40 Room Air 05/29/21 19:29 97.5 76 16 117/59 (78) 95 97.5 05/29/21 08:00 6.0 I & O 05/28/21 05/28/21 05/29/21 15:00 23:00 07:00 Intake Total 50 ml 100 ml 100 ml Balance 50 ml 100 ml 100 ml Physical Exam Physical Exam: GENERAL: Alert, oriented x 3, pleasant female, lying in bed comfortably, in no acute distress. HEENT: Normocephalic, atraumatic. Anicteric. No thrush. NECK: Supple, no JVD, no lymphadenopathy. LUNGS: Clear bilaterally. HEART: S1, S2. ABDOMEN: Soft, nontender, nondistended. Bowel sounds present. EXTREMITIES: Right lower extremity surgical wound dressing present with Prevena wound. Drain removed.. Not taken down. Left lower extremity, no calf tenderness, no swelling. DERMATOLOGIC: Warm, dry, no generalized rash except for above. NEUROLOGIC: Alert, oriented x 3, grossly nonfocal. PSYCHIATRIC: Calm and cooperative. PIV looks clean. General: Alert, Oriented X3, Cooperative Heart: Regular rate, Normal S1, Normal S2 Lungs: Clear Abdomen: Normal bowel sounds, Soft, No tenderness Extremities: No edema, Normal pulses Skin: Other (Proximal portion of right knee incision with serosanguineous drainage) Labs Labs: Laboratory Tests Test 05/29/21 03:45 Hemoglobin 9.4 g/dL (12.0-15.5) Hematocrit 28.2 % (36.0-47.0) Mean Corpuscular Hemoglobin Concent 33 g/dL (31-37) Assessment and Plan Assessmemt and Plan Problems Medical Problems: (1) Wound infection after surgery Status: Acute Comment Review of Relevant I have reviewed the following items chen (where applicable) has been applied. Medications: Current Medications Medications (Trade) Dose Ordered Sig/Abel Route PRN Reason Start Time Stop Time Status Last Admin Dose Admin Lorazepam (Ativan Intensol) 2 mg 1X STAT SL 05/29/21 12:44 05/29/21 12:49 DC 05/29/21 12:44 Justifications for Admission Other Justification KRYSTA DASH MD May 29, 2021 20:55
[2021-05-29] MEDS: MONTELUKAST SODIUM 10 MG TABLET. PO SCH (21:32)
[2021-05-29] MEDS: traZODone 100 MG TABLET. PO SCH (21:32)
[2021-05-29 23:14] VITALS: BP 105/49
[2021-05-30] MEDS: ACETAMINOPHEN 500 MG TABLET PO SCH ×4 (03:00→21:49)
[2021-05-30] MEDS: oxyCODONE IR 5 MG TABLET PO PRN ×5 (03:01→21:58)
[2021-05-30 03:18] VITALS: BP 129/69
[2021-05-30 03:25] LABS: HEMATOCRIT 28.2 % (36.0-47.0); HEMOGLOBIN 9.5 g/dL (12.0-15.5)
[2021-05-30] MEDS: BUDESONIDE 0.5 MG/2 ML NEBU. NEB SCH ×2 (06:05→18:08)
[2021-05-30] MEDS: ALBUTEROL SULFATE 2.5 MG/3 ML NEBU. NEB SCH ×2 (06:05→18:11)
[2021-05-30] MEDS: metroNIDAZOLE 500 MG TABLET PO SCH (06:15)
[2021-05-30] MEDS: HEPARIN for SUB-Q USE 5,000 UNIT/ML VIAL. SQ SCH ×3 (06:18→21:54)
[2021-05-30 07:00] VITALS: BP 109/50
[2021-05-30] MEDS: FERROUS SULFATE 325 MG TABLET. PO SCH ×2 (08:05→17:27)
[2021-05-30] MEDS: CETIRIZINE HCL 10 MG TABLET. PO SCH (08:05)
[2021-05-30] MEDS: LEVOTHYROXINE 112 MCG TABLET PO SCH (08:05)
[2021-05-30] MEDS: PANTOPRAZOLE 40 MG TABLET.DR. PO SCH (08:05)
[2021-05-30] MEDS: LACTOBACILLUS RHAMNOSUS GG 1 CAPSULE. PO SCH ×2 (08:05→21:48)
[2021-05-30] MEDS: SENNOSIDES/DOCUSATE 8.6/50MG TABLET. PO SCH (08:06)
[2021-05-30] MEDS: MULTIVITAMIN with MINERAL TABLET. PO SCH (08:06)
[2021-05-30] MEDS: FLUTICASONE 50MCG/NASAL SPRAY 16GM BOTTLE. NS SCH (08:07)
[2021-05-30 11:00] VITALS: BP 112/58
[2021-05-30] MEDS: DAPTOmycin (GENERIC) IVPB 420 MG in IV NORMAL SALINE 50ML 50 ML IV SCH (11:25)
--- NOTE | 2021-05-30 12:43 | PDOC ---
Infectious Disease Note Subjective: Subjective Patient is feeling well today. still has postop site pain no f/n/v/d Vital Signs: Vital Signs Vital Signs Date Time Temp Pulse Resp B/P (MAP) Pulse Ox O2 Delivery O2 Flow Rate FiO2 05/30/21 12:09 Room Air 05/30/21 11:00 97.6 71 19 112/58 (76) 97 97.6 05/29/21 08:00 6.0 Physical Exam: PHYSICAL EXAM GENERAL: Alert, oriented x 3, pleasant female, lying in bed comfortably, in no acute distress. HEENT: Normocephalic, atraumatic. Anicteric. No thrush.oral cankers upper and lower lips NECK: Supple, no JVD, no lymphadenopathy. LUNGS: Clear bilaterally. HEART: S1, S2. ABDOMEN: Soft, nontender, nondistended. Bowel sounds present. EXTREMITIES: Right lower extremity surgical wound dressing present with Prevena wound. Drain removed.. Not taken down. Left lower extremity, no calf tenderness, no swelling. DERMATOLOGIC: Warm, dry, no generalized rash except for above. NEUROLOGIC: Alert, oriented x 3, grossly nonfocal. PSYCHIATRIC: Calm and cooperative. PIV looks clean. PICC line RUE clean Medications: Inpatient Meds: Medications reviewed. Labs: Lab Laboratory Tests Test 05/30/21 03:05 Hemoglobin 9.5 g/dL (12.0-15.5) Hematocrit 28.2 % (36.0-47.0) Mean Corpuscular Hemoglobin Concent 34 g/dL (31-37) Objective: Assessment: Right TKA PJI ESR & [id number] Swab cultures positive for MRSA May 26, 2021 Status post I&D and polyethylene exchange with hardware retention Intraoperative findings noted "Purulence throughout the subcutaneous as well as intra-articular portion of the knee consistent with acute postoperative periprosthetic joint infection. Cultures were taken intraoperatively" Intraoperative cultures staph aureus Bacteremia MRSA present on admission; source right TKA PJI Repeat blood cultures are negative from 05/27/2021 2. 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 Leukocytosis. 4. History of asthma. 5. Hypothyroidism. 6. HISTORY OF ALLERGIES TO SULFA. 7. Anemia. Plan: Plan of Care Continue daptomycin 8 mg/kg daily, CK normal 05/27/2021 Follow-up repeat blood cultures negative 05/27 so far acyclovir local for lip lesions Monitor labs and cultures Wound/drain management as directed PT and OT as directed PICC line to be placed Maintain aspiration precautions Pain control per orthopedics Discussed with LEANN NGUYEN MD May 30, 2021 12:43
[2021-05-30 14:00] VITALS: BP 123/39
[2021-05-30] MEDS: [UNRECOGNIZED DRUG - OTHER] TP SCH ×2 (17:27→21:54)
[2021-05-30] MEDS: DOCOSANOL 10% TP SCH ×2 (17:27→21:54)
[2021-05-30 19:00] VITALS: BP 104/59
[2021-05-30] MEDS: MONTELUKAST SODIUM 10 MG TABLET. PO SCH (21:49)
[2021-05-30] MEDS: traZODone 100 MG TABLET. PO SCH (21:49)
[2021-05-30 23:00] VITALS: BP 100/51
[2021-05-31 03:00] VITALS: BP 132/68
[2021-05-31] MEDS: ACETAMINOPHEN 500 MG TABLET PO SCH ×4 (03:29→21:09)
[2021-05-31] MEDS: [UNRECOGNIZED DRUG - OTHER] TP SCH ×5 (06:49→21:12)
[2021-05-31] MEDS: DOCOSANOL 10% TP SCH ×5 (06:49→21:12)
[2021-05-31] MEDS: HEPARIN for SUB-Q USE 5,000 UNIT/ML VIAL. SQ SCH ×3 (06:49→21:12)
[2021-05-31 07:00] VITALS: BP 128/71
[2021-05-31] MEDS: PANTOPRAZOLE 40 MG TABLET.DR. PO SCH (07:35)
[2021-05-31] MEDS: LEVOTHYROXINE 112 MCG TABLET PO SCH (07:35)
[2021-05-31] MEDS: ALBUTEROL SULFATE 2.5 MG/3 ML NEBU. NEB SCH ×2 (08:54→20:50)
[2021-05-31] MEDS: BUDESONIDE 0.5 MG/2 ML NEBU. NEB SCH ×2 (08:54→20:50)
[2021-05-31] MEDS: FLUTICASONE 50MCG/NASAL SPRAY 16GM BOTTLE. NS SCH (09:00)
[2021-05-31] MEDS: FERROUS SULFATE 325 MG TABLET. PO SCH ×2 (09:16→17:41)
[2021-05-31] MEDS: CETIRIZINE HCL 10 MG TABLET. PO SCH (09:17)
[2021-05-31] MEDS: MULTIVITAMIN with MINERAL TABLET. PO SCH (09:17)
[2021-05-31] MEDS: LACTOBACILLUS RHAMNOSUS GG 1 CAPSULE. PO SCH ×2 (09:17→21:08)
[2021-05-31] MEDS: SENNOSIDES/DOCUSATE 8.6/50MG TABLET. PO SCH (09:19)
[2021-05-31] MEDS: oxyCODONE IR 5 MG TABLET PO PRN ×3 (09:23→21:09)
--- NOTE | 2021-05-31 09:27 | PDOC ---
[facility] PROGRESS NOTE Date of Service DOS: DATE: 05/30/21 TIME: 09:25 Chief Complaint Chief Complaint Wound dehiscence, history of allergic rhinitis asthma hypothyroidism, MRSA bacteremia -Patient underwent right TKA on May 05 initially healed well. Over the past 3 days noticed some wound dehiscence and increased drainage -Presented emergency room today and there was concern for wound infection -Blood cultures and wound cultures obtained emergency room. Received 1 dose vancomycin in emergency room Infectious disease consulted. Continue Dapto. DC cefepime -Diet as tolerated -She reports that morphine and Dilaudid have really not been helping with pain. Try oral pain meds -Orthopedic team performed I&D 05/26 -Home meds resumed as indicated. History of Present Illness History of Present Illness Patient is 66-year-old female presented the emergency room today due to 3-day history of wound concerns. Patient underwent a right TKA on May 05 and initially did well postop in terms of wound healing. Said she was seen in clinic on the and wound was healing well then. However over the past 3 days she is noticed that the proximal parts of the surgical incision started "opening up." Also noticed increased drainage from the wound as well. She denies any sort of trauma to the site any sort of excessive movement. Reports some generalized unwell feeling also. I examined her patient was in a fair amount of pain. She could not sit still she was uncomfortable. She was really denying any sort of other symptoms includ ing headache, vision change, dizziness, chest pain, shortness of breath, abdominal pain, dysuria. 05/26 Patient evaluated and examined at bedside. Said her pain was pretty well controlled overnight. Planning for surgery today. Remains on vancomycin cefe pime and Flagyl. Continue for now. Please obtain cultures from surgery. PT OT ordered. Plan of care discussed with bedside RN. 05/27 Patient evaluated examined at bedside. She was doing well says her pain is well controlled. Tolerated surgery well. MRSA positive in blood and wound. Continue Dapto cefepime. Plan of care discussed with bedside RN. 05/28 Patient evaluated examined at bedside. Was resting in bed. Says her pain had improved. Tolerating antibiotics well. Appears that she is gone need a long- term course of daptomycin. Continue for now. Hold off PICC line until repeat cultures negative. Plan of care discussed bedside RN 1/5 Patient evaluated and examined at bedside. She was not doing very well today complaining of a fair bit of pain. Unable to participate in PT OT. Will evaluate pain medications. Continue IV antibiotics. Plan of care discussed with bedside RN. 05/30 Late entry for May 30 Patient evaluated examined at bedside. Says pain much better than yesterday. Said she will try to participate in PT OT next time available. Most recent cultures no growth today. Suspecting will need long course daptomycin. Possible discharge this coming week with long-term antibiotics. Vitals/I&O Vitals/I&O: Vital Signs Date Time Temp Pulse Resp B/P (MAP) Pulse Ox O2 Delivery O2 Flow Rate FiO2 05/31/21 09:23 Room Air 05/31/21 08:54 95 05/31/21 07:00 97.6 71 16 128/71 (90) 97.6 I & O 05/30/21 05/30/21 05/31/21 15:00 23:00 07:00 Intake Total 300 ml 220 ml Output Total 650 ml Balance 300 ml 220 ml -650 ml Physical Exam Physical Exam: GENERAL: Alert, oriented x 3, pleasant female, lying in bed comfortably, in no acute distress. HEENT: Normocephalic, atraumatic. Anicteric. No thrush.oral cankers upper and lower lips NECK: Supple, no JVD, no lymphadenopathy. LUNGS: Clear bilaterally. HEART: S1, S2. ABDOMEN: Soft, nontender, nondistended. Bowel sounds present. EXTREMITIES: Right lower extremity surgical wound dressing present with Prevena wound. Drain removed.. Not taken down. Left lower extremity, no calf tenderness, no swelling. DERMATOLOGIC: Warm, dry, no generalized rash except for above. NEUROLOGIC: Alert, oriented x 3, grossly nonfocal. PSYCHIATRIC: Calm and cooperative. PIV looks clean. PICC line RUE clean General: Alert, Oriented X3, Cooperative Heart: Regular rate, Normal S1, Normal S2 Lungs: Clear Abdomen: Normal bowel sounds, Soft, No tenderness Extremities: No edema, Normal pulses Skin: Other (Proximal portion of right knee incision with serosanguineous drainage) Assessment and Plan Assessmemt and Plan Problems Medical Problems: (1) Wound infection after surgery Status: Acute Comment Review of Relevant I have reviewed the following items chen (where applicable) has been applied. Medications: Current Medications Medications (Trade) Dose Ordered Sig/Abel Route PRN Reason Start Time Stop Time Status Last Admin Dose Admin Docosanol (Abreva 10% Cold Sore Treatment) 1 mahesh DAY TP 05/30/21 18:00 05/31/21 06:49 Justifications for Admission Other Justification KRYSTA DASH MD May 31, 2021 09:27
[2021-05-31] MEDS: DAPTOmycin (GENERIC) IVPB 420 MG in IV NORMAL SALINE 50ML 50 ML IV SCH (10:24)
--- NOTE | 2021-05-31 11:34 | PDOC ---
[facility] PROGRESS NOTE Date of Service DOS: DATE: 05/31/21 TIME: 11:34 Chief Complaint Chief Complaint Wound dehiscence, history of allergic rhinitis asthma hypothyroidism, MRSA bacteremia -Patient underwent right TKA on May 05 initially healed well. Over the past 3 days noticed some wound dehiscence and increased drainage -Presented emergency room today and there was concern for wound infection -Blood cultures and wound cultures obtained emergency room. Received 1 dose vancomycin in emergency room Infectious disease consulted. Continue Dapto. DC cefepime -Diet as tolerated -She reports that morphine and Dilaudid have really not been helping with pain. Try oral pain meds -Orthopedic team performed I&D 05/26 -Home meds resumed as indicated. History of Present Illness History of Present Illness Patient is 66-year-old female presented the emergency room today due to 3-day history of wound concerns. Patient underwent a right TKA on May 05 and initially did well postop in terms of wound healing. Said she was seen in clinic on the and wound was healing well then. However over the past 3 days she is noticed that the proximal parts of the surgical incision started "opening up." Also noticed increased drainage from the wound as well. She denies any sort of trauma to the site any sort of excessive movement. Reports some generalized unwell feeling also. I examined her patient was in a fair amount of pain. She could not sit still she was uncomfortable. She was really denying any sort of other symptoms includ ing headache, vision change, dizziness, chest pain, shortness of breath, abdominal pain, dysuria. 05/26 Patient evaluated and examined at bedside. Said her pain was pretty well controlled overnight. Planning for surgery today. Remains on vancomycin cefe pime and Flagyl. Continue for now. Please obtain cultures from surgery. PT OT ordered. Plan of care discussed with bedside RN. 05/27 Patient evaluated examined at bedside. She was doing well says her pain is well controlled. Tolerated surgery well. MRSA positive in blood and wound. Continue Dapto cefepime. Plan of care discussed with bedside RN. 05/28 Patient evaluated examined at bedside. Was resting in bed. Says her pain had improved. Tolerating antibiotics well. Appears that she is gone need a long- term course of daptomycin. Continue for now. Hold off PICC line until repeat cultures negative. Plan of care discussed bedside RN 07/29 Patient evaluated and examined at bedside. She was not doing very well today complaining of a fair bit of pain. Unable to participate in PT OT. Will evaluate pain medications. Continue IV antibiotics. Plan of care discussed with bedside RN. 05/30 Late entry for May 30 Patient evaluated examined at bedside. Says pain much better than yesterday. Said she will try to participate in PT OT next time available. Most recent cultures no growth today. Suspecting will need long course daptomycin. Possible discharge this coming week with long-term antibiotics. 05/31 Patient evaluated examined at bedside. Pain well controlled. PT OT ordered. Continue antibiotics. Most recent cultures no growth today. Plan of care discussed with bedside RN. Vitals/I&O Vitals/I&O: Vital Signs Date Time Temp Pulse Resp B/P (MAP) Pulse Ox O2 Delivery O2 Flow Rate FiO2 05/31/21 10:05 Room Air 05/31/21 08:54 95 05/31/21 07:00 97.6 71 16 128/71 (90) 97.6 I & O 05/30/21 05/30/21 05/31/21 15:00 23:00 07:00 Intake Total 300 ml 220 ml Output Total 650 ml Balance 300 ml 220 ml -650 ml Physical Exam Physical Exam: GENERAL: Alert, oriented x 3, pleasant female, lying in bed comfortably, in no acute distress. HEENT: Normocephalic, atraumatic. Anicteric. No thrush.oral cankers upper and lower lips NECK: Supple, no JVD, no lymphadenopathy. LUNGS: Clear bilaterally. HEART: S1, S2. ABDOMEN: Soft, nontender, nondistended. Bowel sounds present. EXTREMITIES: Right lower extremity surgical wound dressing present with Prevena wound. Drain removed.. Not taken down. Left lower extremity, no calf tenderness, no swelling. DERMATOLOGIC: Warm, dry, no generalized rash except for above. NEUROLOGIC: Alert, oriented x 3, grossly nonfocal. PSYCHIATRIC: Calm and cooperative. PIV looks clean. PICC line RUE clean General: Alert, Oriented X3, Cooperative Heart: Regular rate, Normal S1, Normal S2 Lungs: Clear Abdomen: Normal bowel sounds, Soft, No tenderness Extremities: No edema, Normal pulses Skin: Other (Proximal portion of right knee incision with serosanguineous drainage) Assessment and Plan Assessmemt and Plan Problems Medical Problems: (1) Wound infection after surgery Status: Acute Comment Review of Relevant I have reviewed the following items chen (where applicable) has been applied. Medications: Current Medications Medications (Trade) Dose Ordered Sig/Abel Route PRN Reason Start Time Stop Time Status Last Admin Dose Admin Docosanol (Abreva 10% Cold Sore Treatment) 1 mahesh 5XDAY TP 05/30/21 18:00 05/31/21 10:00 Justifications for Admission Other Justification KRYSTA DASH MD May 31, 2021 11:34
[2021-05-31 15:00] VITALS: BP 153/48
[2021-05-31 19:00] VITALS: BP 121/56
[2021-05-31] MEDS: MONTELUKAST SODIUM 10 MG TABLET. PO SCH (21:08)
[2021-05-31] MEDS: traZODone 100 MG TABLET. PO SCH (21:08)
[2021-05-31 22:41] VITALS: BP 125/62
[2021-06-01 03:00] VITALS: BP 120/68
[2021-06-01] MEDS: ACETAMINOPHEN 500 MG TABLET PO SCH ×4 (03:00→17:46)
[2021-06-01] MEDS: [UNRECOGNIZED DRUG - OTHER] TP SCH ×3 (06:19→14:00)
[2021-06-01] MEDS: DOCOSANOL 10% TP SCH ×3 (06:19→14:00)
[2021-06-01] MEDS: LEVOTHYROXINE 112 MCG TABLET PO SCH (06:20)
[2021-06-01] MEDS: PANTOPRAZOLE 40 MG TABLET.DR. PO SCH (06:20)
[2021-06-01] MEDS: HEPARIN for SUB-Q USE 5,000 UNIT/ML VIAL. SQ SCH ×2 (06:22→14:00)
[2021-06-01 07:00] VITALS: BP 120/60
[2021-06-01 07:08] LABS: BASO # 0.1 x10^3/uL (0.0-0.2); BASO % 1 % (0-3); EOS # 0.2 x10^3/uL (0.0-0.7); EOS % 3 % (0-3); HEMATOCRIT 27.7 % (36.0-47.0); HEMOGLOBIN 9.5 g/dL (12.0-15.5); LYMPH # 1.8 x10^3/uL (1.0-4.8); LYMPH % 21 % (24-48); MEAN CORPUSCULAR HEMOGLOBIN 30 pg (25-35); MEAN CORPUSCULAR HGB CONC 34 g/dL (31-37); MEAN CORPUSCULAR VOLUME 89 fL (79-100); MONO # 0.6 x10^3/uL (0.0-1.1); MONO % 7 % (0-9); NEUT % 69 % (31-73); PLATELET COUNT 430 x10^3/uL (140-400); RED BLOOD COUNT 3.13 x10^6/uL (3.50-5.40); RED CELL DISTRIBUTION WIDTH 14.8 % (11.5-14.5); WHITE BLOOD COUNT 8.7 x10^3/uL (4.0-11.0)
[2021-06-01 07:28] LABS: ALBUMIN 2.1 g/dL (3.4-5.0); ALBUMIN/GLOBULIN RATIO 0.5 (1.0-1.7); CALCIUM 7.9 mg/dL (8.5-10.1); CREATININE 0.7 mg/dL (0.6-1.0); GFR 83.7; TOTAL BILIRUBIN 0.3 mg/dL (0.2-1.0); TOTAL PROTEIN 6.2 g/dL (6.4-8.2)
[2021-06-01 07:35] LABS: POTASSIUM 2.9 mmol/L (3.5-5.1)
[2021-06-01] MEDS: ALBUTEROL SULFATE 2.5 MG/3 ML NEBU. NEB SCH (07:46)
[2021-06-01] MEDS: BUDESONIDE 0.5 MG/2 ML NEBU. NEB SCH (07:46)
[2021-06-01] MEDS ORDERED: POTASSIUM CHLORIDE 20 MEQ TABLET.ER. PO ONE ×2 (07:49→10:00)
--- NOTE | 2021-06-01 07:52 | PDOC ---
[facility] PROGRESS NOTE Date of Service DOS: DATE: 06/01/21 TIME: 07:51 Chief Complaint Chief Complaint Right knee Wound dehiscence history of allergic rhinitis asthma hypothyroidism MRSA bacteremia Plan: Continue daptomycin 8 mg/kg daily, CK normal 05/27/2021 Follow-up repeat blood cultures negative 05/27 so far acyclovir local for lip lesions PICC online tutor and complications discussed Probiotics Social work to assist with discharge antibiotics Q. Tuesday labs CBC/BUN/creatinine/CPK/ESR/CRP. Fax results to [phone] Follow-up ID clinic June 16 at 2:30 PM ,[phone] for appointment Wound/VAC care and activity per orthopedics History of Present Illness History of Present Illness Ms Iglesias is 66-year-old female presented the emergency room today due to 3-day history of wound concerns. Patient underwent a right TKA on May 05 and initially did well postop in terms of wound healing. Said she was seen in clinic on the and wound was healing well then. However over the past 3 days she is noticed that the proximal parts of the surgical incision started "opening up." Also noticed increased drainage from the wound as well. She denies any sort of trauma to the site any sort of excessive movement. Reports some generalized unwell feeling also. I examined her patient was in a fair amount of pain. She could not sit still she was uncomfortable. She was really denying any sort of other symptoms including headache, vision change, dizziness, chest pain, shortness of breath, abdominal pain, dysuria. 05/26: Patient evaluated and examined at bedside. Said her pain was pretty well controlled overnight. Planning for surgery today. Remains on vancomycin cefepime and Flagyl. Continue for now. Please obtain cultures from surgery. PT OT ordered. Plan of care discussed with bedside RN. 05/27: Patient evaluated examined at bedside. She was doing well says her pain is well controlled. Tolerated surgery well. MRSA positive in blood and wound. Continue Dapto cefepime. Plan of care discussed with bedside RN. 05/28: Patient evaluated examined at bedside. Was resting in bed. Says her pain had improved. Tolerating antibiotics well. Appears that she is gone need a long-term course of daptomycin. Continue for now. Hold off PICC line until repeat cultures negative. Plan of care discussed bedside RN 05/29: Patient evaluated and examined at bedside. She was not doing very well today complaining of a fair bit of pain. Unable to participate in PT OT. Will evaluate pain medications. Continue IV antibiotics. Plan of care discussed with bedside RN. 05/30 Late entry for May 30 Patient evaluated examined at bedside. Says pain much better than yesterday. Said she will try to participate in PT OT next time available. Most recent cultures no growth today. Suspecting will need long course daptomycin. Possible discharge this coming week with long-term antibiotics. 05/31: Patient evaluated examined at bedside. Pain well controlled. PT OT ordered. Continue antibiotics. Most recent cultures no growth today. Plan of care discussed with bedside RN. Feeling well afebrile. Cultures no growth to date. Plan for daptomycin infusions at home versus outpatient work with social work today. No chest pain or shortness of breath Vitals/I&O Vitals/I&O: Vital Signs Date Time Temp Pulse Resp B/P (MAP) Pulse Ox O2 Delivery O2 Flow Rate FiO2 06/01/21 07:47 98 Room Air 06/01/21 03:00 97.7 72 17 120/68 (85) 97.7 I & O 05/31/21 05/31/21 06/01/21 15:00 23:00 07:00 Output Total 300 ml 200 ml Balance -300 ml -200 ml Physical Exam Physical Exam: GENERAL: Alert, oriented x 3, pleasant female, lying in bed comfortably, in no acute distress. HEENT: Normocephalic, atraumatic. Anicteric. No thrush.oral cankers upper and lower lips NECK: Supple, no JVD, no lymphadenopathy. LUNGS: Clear bilaterally. HEART: S1, S2. ABDOMEN: Soft, nontender, nondistended. Bowel sounds present. EXTREMITIES: Right lower extremity surgical wound dressing present with Prevena wound. Drain removed.. Not taken down. Left lower extremity, no calf tenderness, no swelling. DERMATOLOGIC: Warm, dry, no generalized rash except for above. NEUROLOGIC: Alert, oriented x 3, grossly nonfocal. PSYCHIATRIC: Calm and cooperative. PIV looks clean. PICC line RUE clean General: Alert, Oriented X3, Cooperative Heart: Regular rate, Normal S1, Normal S2 Lungs: Clear Abdomen: Normal bowel sounds, Soft, No tenderness Extremities: No edema, Normal pulses Skin: Other (Proximal portion of right knee incision with serosanguineous drainage) Labs Labs: Laboratory Tests Test 06/01/21 06:00 White Blood Count 8.7 x10^3/uL (4.0-11.0) Red Blood Count 3.13 x10^6/uL (3.50-5.40) Hemoglobin 9.5 g/dL (12.0-15.5) Hematocrit 27.7 % (36.0-47.0) Mean Corpuscular Volume 89 fL (79-100) Mean Corpuscular Hemoglobin 30 pg (25-35) Mean Corpuscular Hemoglobin Concent 34 g/dL (31-37) Red Cell Distribution Width 14.8 % (11.5-14.5) Platelet Count 430 x10^3/uL (140-400) Neutrophils (%) (Auto) 69 % (31-73) Lymphocytes (%) (Auto) 21 % (24-48) Monocytes (%) (Auto) 7 % (0-9) Eosinophils (%) (Auto) 3 % (0-3) Basophils (%) (Auto) 1 % (0-3) Neutrophils # (Auto) 6.0 x10^3/uL (1.8-7.7) Lymphocytes # (Auto) 1.8 x10^3/uL (1.0-4.8) Monocytes # (Auto) 0.6 x10^3/uL (0.0-1.1) Eosinophils # (Auto) 0.2 x10^3/uL (0.0-0.7) Basophils # (Auto) 0.1 x10^3/uL (0.0-0.2) Sodium Level 144 mmol/L (136-145) Potassium Level 2.9 mmol/L (3.5-5.1) Chloride Level 109 mmol/L (98-107) Carbon Dioxide Level 29 mmol/L (21-32) Anion Gap 6 (6-14) Blood Urea Nitrogen 6 mg/dL (7-20) Creatinine 0.7 mg/dL (0.6-1.0) Estimated GFR (Cockcroft-Gault) 83.7 BUN/Creatinine Ratio 9 (6-20) Glucose Level 93 mg/dL (70-99) Calcium Level 7.9 mg/dL (8.5-10.1) Total Bilirubin 0.3 mg/dL (0.2-1.0) Aspartate Amino Transf (AST/SGOT) 26 U/L (15-37) Alanine Aminotransferase (ALT/SGPT) 22 U/L (14-59) Alkaline Phosphatase 87 U/L (46-116) Creatine Kinase 78 U/L (26-192) Total Protein 6.2 g/dL (6.4-8.2) Albumin 2.1 g/dL (3.4-5.0) Albumin/Globulin Ratio 0.5 (1.0-1.7) Assessment and Plan Assessmemt and Plan Problems Medical Problems: (1) Wound infection after surgery Status: Acute Comment Review of Relevant I have reviewed the following items chen (where applicable) has been applied. Justifications for Admission Other Justification KRYSTA BELL MD Jun 01, 2021 07:52
[2021-06-01] MEDS: LACTOBACILLUS RHAMNOSUS GG 1 CAPSULE. PO SCH (08:04)
[2021-06-01] MEDS: FERROUS SULFATE 325 MG TABLET. PO SCH ×2 (08:04→17:00)
[2021-06-01] MEDS: MULTIVITAMIN with MINERAL TABLET. PO SCH (08:04)
[2021-06-01] MEDS: SENNOSIDES/DOCUSATE 8.6/50MG TABLET. PO SCH (08:04)
[2021-06-01] MEDS: CETIRIZINE HCL 10 MG TABLET. PO SCH (08:05)
[2021-06-01] MEDS: FLUTICASONE 50MCG/NASAL SPRAY 16GM BOTTLE. NS SCH (08:11)
--- NOTE | 2021-06-01 09:27 | PDOC ---
Infectious Disease Note Subjective: Subjective Patient is feeling well today. postop site pain is controlled no f/n/v/d Eager for discharge home Vital Signs: Vital Signs Vital Signs Date Time Temp Pulse Resp B/P (MAP) Pulse Ox O2 Delivery O2 Flow Rate FiO2 06/01/21 07:47 98 Room Air 06/01/21 07:00 98.2 70 16 120/60 (80) 98.2 Physical Exam: PHYSICAL EXAM GENERAL: Alert, oriented x 3, pleasant female, lying in bed comfortably, in no acute distress. HEENT: Normocephalic, atraumatic. Anicteric. No thrush.oral cankers upper and lower lips NECK: Supple, no JVD, no lymphadenopathy. LUNGS: Clear bilaterally. HEART: S1, S2. ABDOMEN: Soft, nontender, nondistended. Bowel sounds present. EXTREMITIES: Right lower extremity surgical wound dressing present with Prevena wound. Drain removed.. Not taken down. Left lower extremity, no calf tenderness, no swelling. DERMATOLOGIC: Warm, dry, no generalized rash except for above. NEUROLOGIC: Alert, oriented x 3, grossly nonfocal. PSYCHIATRIC: Calm and cooperative. PIV looks clean. PICC line RUE clean Medications: Inpatient Meds: Medications reviewed. Labs: Lab Laboratory Tests Test 06/01/21 06:00 White Blood Count 8.7 x10^3/uL (4.0-11.0) Red Blood Count 3.13 x10^6/uL (3.50-5.40) Hemoglobin 9.5 g/dL (12.0-15.5) Hematocrit 27.7 % (36.0-47.0) Mean Corpuscular Volume 89 fL (79-100) Mean Corpuscular Hemoglobin 30 pg (25-35) Mean Corpuscular Hemoglobin Concent 34 g/dL (31-37) Red Cell Distribution Width 14.8 % (11.5-14.5) Platelet Count 430 x10^3/uL (140-400) Neutrophils (%) (Auto) 69 % (31-73) Lymphocytes (%) (Auto) 21 % (24-48) Monocytes (%) (Auto) 7 % (0-9) Eosinophils (%) (Auto) 3 % (0-3) Basophils (%) (Auto) 1 % (0-3) Neutrophils # (Auto) 6.0 x10^3/uL (1.8-7.7) Lymphocytes # (Auto) 1.8 x10^3/uL (1.0-4.8) Monocytes # (Auto) 0.6 x10^3/uL (0.0-1.1) Eosinophils # (Auto) 0.2 x10^3/uL (0.0-0.7) Basophils # (Auto) 0.1 x10^3/uL (0.0-0.2) Sodium Level 144 mmol/L (136-145) Potassium Level 2.9 mmol/L (3.5-5.1) Chloride Level 109 mmol/L (98-107) Carbon Dioxide Level 29 mmol/L (21-32) Anion Gap 6 (6-14) Blood Urea Nitrogen 6 mg/dL (7-20) Creatinine 0.7 mg/dL (0.6-1.0) Estimated GFR (Cockcroft-Gault) 83.7 BUN/Creatinine Ratio 9 (6-20) Glucose Level 93 mg/dL (70-99) Calcium Level 7.9 mg/dL (8.5-10.1) Total Bilirubin 0.3 mg/dL (0.2-1.0) Aspartate Amino Transf (AST/SGOT) 26 U/L (15-37) Alanine Aminotransferase (ALT/SGPT) 22 U/L (14-59) Alkaline Phosphatase 87 U/L (46-116) Creatine Kinase 78 U/L (26-192) Total Protein 6.2 g/dL (6.4-8.2) Albumin 2.1 g/dL (3.4-5.0) Albumin/Globulin Ratio 0.5 (1.0-1.7) Objective: Assessment: 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 Cultures were taken intraoperatively" Intraoperative cultures staph aureus Bacteremia MRSA present on admission; source right TKA PJI Repeat blood cultures are negative from 05/27/2021 2. 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 Leukocytosis. 4. History of asthma. 5. Hypothyroidism. 6. HISTORY OF ALLERGIES TO SULFA. 7. Anemia. 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 Tuesday labs CBC/BUN/creatinine/CPK/ESR/CRP. Fax results to [phone] Follow-up ID clinic June 16 at 2:30 PM ,[phone] for appointment Wound/VAC care and activity per orthopedics Discussed with LENAN NGUYEN MD Jun 01, 2021 09:27
--- NOTE | 2021-06-01 10:26 | NUR ---
SW following. Discussed with RN, pt from home with spouse, room air, regular diet. SW received script for IV abx at discharge. Pt wanting to do home infusion if possible. [facility] is a preferred provider of pt's insurance and pt is wanting to get out of the hospital today. [facility] phoned and faxed referral to [facility]. Requested info on whether [facility] could provide the nursing care for PICC as pt does not have any other home health needs at this time (verified with RN). Awaiting benefits. [facility] will continue to follow. Addendum: 06/01/21 at 1556 by KIKI BEAUCHAMP Benefits finally back from [facility] - $650 total for abx and supplies per week. [facility] met with pt, pt would like to do outpatient as she cannot afford this. [facility] faxed referral to outpatient. Eros GUZMAN) getting insurance auth from [employer]. No auth needed for outpatient infusion, outpatient notified. Plan for 0900 tomorrow for infusion time, RN notified.
[2021-06-01 11:00] VITALS: BP 119/48
[2021-06-01] MEDS: DAPTOmycin (GENERIC) IVPB 420 MG in IV NORMAL SALINE 50ML 50 ML IV SCH (12:16)
[2021-06-01] MEDS: ONDANSETRON PF 4 MG/2 ML VIAL. IVP PRN (12:22)
[2021-06-01] MEDS: oxyCODONE IR 5 MG TABLET PO PRN (12:23)
[2021-06-01 15:00] VITALS: BP 109/48
[2021-06-01] MEDS ORDERED: DOCO2CRE7 TP (16:15)
[2021-06-01] MEDS ORDERED: DAPT350V IV (16:15)
--- NOTE | 2021-06-01 16:19 | PDOC3 ---
Discharge Summary Visit Information Date of Admission: May 25, 2021 Date of Discharge: Jun 01, 2021 Admitting Diagnosis: Right knee wound Final Diagnosis MRSA bacteremia Problems Medical Problems: (1) Wound infection after surgery Status: Acute Brief Hospital Course Allergies Allergies Coded Allergies Type Severity Reaction Last Updated Verified Sulfa (Sulfonamide Antibiotics) Allergy Intermediate Rash 05/26/21 Yes I S O L A T I O N *CONTACT* Allergy Unknown 05/28/21 Yes Vital Signs Vital Signs Date Time Temp Pulse Resp B/P (MAP) Pulse Ox O2 Delivery O2 Flow Rate FiO2 06/01/21 15:00 98.3 74 16 109/48 (68) 97 Room Air 98.3 Lab Results Laboratory Tests Test 06/01/21 06:00 White Blood Count 8.7 x10^3/uL (4.0-11.0) Red Blood Count 3.13 x10^6/uL (3.50-5.40) Hemoglobin 9.5 g/dL (12.0-15.5) Hematocrit 27.7 % (36.0-47.0) Mean Corpuscular Volume 89 fL (79-100) Mean Corpuscular Hemoglobin 30 pg (25-35) Mean Corpuscular Hemoglobin Concent 34 g/dL (31-37) Red Cell Distribution Width 14.8 % (11.5-14.5) Platelet Count 430 x10^3/uL (140-400) Neutrophils (%) (Auto) 69 % (31-73) Lymphocytes (%) (Auto) 21 % (24-48) Monocytes (%) (Auto) 7 % (0-9) Eosinophils (%) (Auto) 3 % (0-3) Basophils (%) (Auto) 1 % (0-3) Neutrophils # (Auto) 6.0 x10^3/uL (1.8-7.7) Lymphocytes # (Auto) 1.8 x10^3/uL (1.0-4.8) Monocytes # (Auto) 0.6 x10^3/uL (0.0-1.1) Eosinophils # (Auto) 0.2 x10^3/uL (0.0-0.7) Basophils # (Auto) 0.1 x10^3/uL (0.0-0.2) Erythrocyte Sedimentation Rate 75 (0-25) Sodium Level 144 mmol/L (136-145) Potassium Level 2.9 mmol/L (3.5-5.1) Chloride Level 109 mmol/L (98-107) Carbon Dioxide Level 29 mmol/L (21-32) Anion Gap 6 (6-14) Blood Urea Nitrogen 6 mg/dL (7-20) Creatinine 0.7 mg/dL (0.6-1.0) Estimated GFR (Cockcroft-Gault) 83.7 BUN/Creatinine Ratio 9 (6-20) Glucose Level 93 mg/dL (70-99) Calcium Level 7.9 mg/dL (8.5-10.1) Total Bilirubin 0.3 mg/dL (0.2-1.0) Aspartate Amino Transf (AST/SGOT) 26 U/L (15-37) Alanine Aminotransferase (ALT/SGPT) 22 U/L (14-59) Alkaline Phosphatase 87 U/L (46-116) Creatine Kinase 78 U/L (26-192) Total Protein 6.2 g/dL (6.4-8.2) Albumin 2.1 g/dL (3.4-5.0) Albumin/Globulin Ratio 0.5 (1.0-1.7) Laboratory Tests Test 06/01/21 06:00 White Blood Count 8.7 x10^3/uL (4.0-11.0) Red Blood Count 3.13 x10^6/uL (3.50-5.40) Hemoglobin 9.5 g/dL (12.0-15.5) Hematocrit 27.7 % (36.0-47.0) Mean Corpuscular Volume 89 fL (79-100) Mean Corpuscular Hemoglobin 30 pg (25-35) Mean Corpuscular Hemoglobin Concent 34 g/dL (31-37) Red Cell Distribution Width 14.8 % (11.5-14.5) Platelet Count 430 x10^3/uL (140-400) Neutrophils (%) (Auto) 69 % (31-73) Lymphocytes (%) (Auto) 21 % (24-48) Monocytes (%) (Auto) 7 % (0-9) Eosinophils (%) (Auto) 3 % (0-3) Basophils (%) (Auto) 1 % (0-3) Neutrophils # (Auto) 6.0 x10^3/uL (1.8-7.7) Lymphocytes # (Auto) 1.8 x10^3/uL (1.0-4.8) Monocytes # (Auto) 0.6 x10^3/uL (0.0-1.1) Eosinophils # (Auto) 0.2 x10^3/uL (0.0-0.7) Basophils # (Auto) 0.1 x10^3/uL (0.0-0.2) Erythrocyte Sedimentation Rate 75 (0-25) Sodium Level 144 mmol/L (136-145) Potassium Level 2.9 mmol/L (3.5-5.1) Chloride Level 109 mmol/L (98-107) Carbon Dioxide Level 29 mmol/L (21-32) Anion Gap 6 (6-14) Blood Urea Nitrogen 6 mg/dL (7-20) Creatinine 0.7 mg/dL (0.6-1.0) Estimated GFR (Cockcroft-Gault) 83.7 BUN/Creatinine Ratio 9 (6-20) Glucose Level 93 mg/dL (70-99) Calcium Level 7.9 mg/dL (8.5-10.1) Total Bilirubin 0.3 mg/dL (0.2-1.0) Aspartate Amino Transf (AST/SGOT) 26 U/L (15-37) Alanine Aminotransferase (ALT/SGPT) 22 U/L (14-59) Alkaline Phosphatase 87 U/L (46-116) Creatine Kinase 78 U/L (26-192) Total Protein 6.2 g/dL (6.4-8.2) Albumin 2.1 g/dL (3.4-5.0) Albumin/Globulin Ratio 0.5 (1.0-1.7) Brief Hospital Course Ms Iglesias is 66-year-old female presented the emergency room today due to 3-day history of wound concerns. Patient underwent a right TKA on May 05 and initially did well postop in terms of wound healing. Said she was seen in clinic on the and wound was healing well then. However over the past 3 days she is noticed that the proximal parts of the surgical incision started "opening up." Also noticed increased drainage from the wound as well. She denies any sort of trauma to the site any sort of excessive movement. Reports some generalized unwell feeling also. I examined her patient was in a fair amount of pain. She could not sit still she was uncomfortable. She was really denying any sort of other symptoms including headache, vision change, dizziness, chest pain, shortness of breath, abdominal pain, dysuria. 05/26: Patient evaluated and examined at bedside. Said her pain was pretty well controlled overnight. Planning for surgery today. Remains on vancomycin cefepime and Flagyl. Continue for now. Please obtain cultures from surgery. PT OT ordered. To OR for washout. 05/27: Patient evaluated examined at bedside. She was doing well says her pain is well controlled. Tolerated surgery well. MRSA positive in blood and wound. Continue Dapto cefepime. Plan of care discussed with bedside RN. 05/28: Patient evaluated examined at bedside. Was resting in bed. Says her pain had improved. Tolerating antibiotics well. Appears that she is gone need a long-term course of daptomycin. Continue for now. Hold off PICC line until repeat cultures negative. Plan of care discussed bedside RN 05/29: Patient evaluated and examined at bedside. She was not doing very well today complaining of a fair bit of pain. Unable to participate in PT OT. Will evaluate pain medications. Continue IV antibiotics. Plan of care discussed with bedside RN. 05/30 Late entry for May 30 Patient evaluated examined at bedside. Says pain much better than yesterday. Said she will try to participate in PT OT next time available. Most recent cultures no growth today. Suspecting will need long course daptomycin. Possible discharge this coming week with long-term antibiotics. 05/31: Patient evaluated examined at bedside. Pain well controlled. PT OT ordered. Continue antibiotics. Most recent cultures no growth today. Plan of care discussed with bedside RN. Feeling well afebrile. Repeat blood cultures no growth to date. Plan for daptomycin infusions outpatient work with social work today. No chest pain or shortness of breath. outpatient PT. 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 Tuesday labs CBC/BUN/creatinine/CPK/ESR/CRP. Fax results to [phone] Follow-up ID clinic June 16 at 2:30 PM ,[phone] for appointment Wound/VAC care and activity per orthopedics Greater than 30 minutes spent on d/c home with outpatient infusion f/u Discharge Information Condition at Discharge: Improved Follow Up: Weeks Disposition/Orders: D/C to Home Scheduled Cetirizine Hcl (Zyrtec) 10 Mg Tablet, 10 MG PO DAILY for allergy control, (Reported) Entered as Reported by: SREE GAR on 04/20/211556 Last Action: Continued on 05/25/211202 by KRYSTA DASH MD Daptomycin (Daptomycin) 350 Mg Vial, 420 MG IV DAILY for MRSA bacteremia for 21 Days, #26 Prescribed by: KRYSTA BELL MD on 06/01/21 1615 Docosanol (Abreva) 2 Gm Cream..g., 1 FRANCES TP 5XDAY for Cold sore\\ for 5 Days, #25 Prescribed by: KRYSTA BELL MD on 06/01/21 1615 Fluticasone Propionate (Fluticasone Propionate Nasal [place]) 16 Gm [place].susp, 2 SPRAY NS DAILY for control allergies, (Reported) Entered as Reported by: SREE GAR on 04/20/211556 Last Action: Continued on 05/25/211202 by KRYSTA DASH MD Fluticasone/Salmeterol (Advair 500-50 Diskus) 1 Each Disk.w.dev, 2 INH IH BID for asthma control, (Reported) Entered as Reported by: SREE GAR on 04/20/211556 Last Action: Converted on 05/25/211202 by KRYSTA DASH MD Icosapent Ethyl (Vascepa) 1 Gm Capsule, 1 GM PO BID for control hyperlipidemia, (Reported) Entered as Reported by: SREE GAR on 04/20/211556 Last Action: HELD on 05/25/211202 by KRYSTA DASH MD Levothyroxine Sodium (Levothyroxine Sodium) 112 Mcg Tablet, 112 MCG PO DAILYAC for THYROID SUPPLEMENT, #30 Ref 0 (Reported) Entered as Reported by: SREE GAR on 04/20/211556 Last Action: Continued on 05/25/211202 by KRYSTA DASH MD Montelukast Sodium (Montelukast Sodium Tablet ) 10 Mg Tablet, 10 MG PO HS for FOR ASTHMA, Ref 0 (Reported) Entered as Reported by: SREE GAR on 04/20/211556 Last Action: Continued on 05/25/211202 by KRYSTA DASH MD Pantoprazole Sodium (Pantoprazole Sodium ) 40 Mg Tablet.dr, 40 MG PO DAILYAC for GERD, (Reported) Entered as Reported by: Aicha Stephens on 05/05/21 0645 Last Action: Continued on 05/25/211202 by KRYSTA DASH MD Rivaroxaban (Xarelto) 10 Mg Tablet, 1 TAB PO DAILY for DVT PPX for 12 Days, #12 Ref 0 Prescribed by: KRYSTA BELL MD on 05/09/21 154 Last Action: HELD on 05/25/211202 by KRYSTA DASH MD Trazodone Hcl (Trazodone Hcl) 100 Mg Tablet, 100 MG PO HS for sleep aid, (Reported) Entered as Reported by: SREE GAR on 04/20/211556 Last Action: Continued on 05/25/211202 by KRYSTA DASH MD Scheduled PRN Albuterol Sulfate (Proair Hfa) 8.5 Gm Hfa.aer.ad, 2 PUFF INH PRN Q6HRS PRN for SHORTNESS OF BREATH, (Reported) Entered as Reported by: SREE GAR on 04/20/211556 Diclofenac Sodium (Voltaren Arthritis Pain) 20 Gm Gel..gram., 20 GM TP PRN DAILY PRN for PAIN, (Reported) Entered as Reported by: SREE GAR on 04/20/211556 Last Action: Continued on 05/25/211202 by KRYSTA DASH MD Famotidine (Pepcid) 20 Mg Tablet, 20 MG PO PRN DAILY PRN for control gerd, (Reported) Entered as Reported by: SREE GAR on 04/20/211556 Last Action: Continued on 05/25/211202 by KRYSTA DASH MD Oxycodone Hcl (Oxycodone Hcl Immed.release ) 5 Mg Tablet, 5 MG PO PRN Q8HRS PRN for PAIN for 6 Days, #18 Prescribed by: KRYSTA BELL MD on 05/09/21 1547 Last Action: HELD on 05/25/21 1203 by KRYSTA DASH MD Justicifation of Admission Dx: Justifications for Admission: Justification of Admission Dx: Yes KRYSTA BELL MD Jun 01, 2021 16:19
[2021-06-01] MEDS ORDERED: OXYC5TAB4 PO (16:53)
[2021-06-02] MEDS ORDERED: OXYC5TAB4 PO (09:20)
== END 2021-06-01 16:55 | disposition home or self-care (01) | DRG 486 ==
LOC: ER 06:50 → ED HOLD 09:55 → 4 NORTH 11:33
PROVIDERS: ADMIT Student in an Organized Health Care Education/Training Program; ATTEND Student in an Organized Health Care Education/Training Program
PROC: 0SUV09Z Supplement Right Knee Joint, Tibial Surface with Liner, Open Approach (ICD-10-PCS; 2021-05-26)
PROC: 02HV33Z Insertion of Infusion Device into Superior Vena Cava, Percutaneous Approach (ICD-10-PCS; 2021-05-26)
PROC: 0SPC09Z Removal of Liner from Right Knee Joint, Open Approach (ICD-10-PCS; principal; 2021-05-26 19:00)
DX: T84.53XA Infection and inflammatory reaction due to internal right knee prosthesis, initial encounter (principal); T81.41XA Infection following a procedure, superficial incisional surgical site, initial encounter; R78.81 Bacteremia; T81.30XA Disruption of wound, unspecified, initial encounter; B95.62 Methicillin resistant Staphylococcus aureus infection as the cause of diseases classified elsewhere; D64.9 Anemia, unspecified; E03.9 Hypothyroidism, unspecified; J45.909 Unspecified asthma, uncomplicated; M19.011 Primary osteoarthritis, right shoulder; Y83.1 Surgical operation with implant of artificial internal device as the cause of abnormal reaction of the patient, or of later complication, without mention of misadventure at the time of the procedure; Z20.822 Contact with and (suspected) exposure to COVID-19; Z88.2 Allergy status to sulfonamides; Z79.899 Other long term (current) drug therapy
CPT/HCPCS: 36415; 36569; 71045; 73562; 80048; 80053; 82550; 82565; 83605; 85014; 85018; 85025; 85027; 85651; 86140; 87040; 87071; 87075; 87076; 87077; 87186; 87205; 87426; 94640; 94760; 96365; 96375; 96376; A4930; A6450; A6454; A6550; C1755; C1776; J0692; J0780; J0878; J1100; J1170; J1644; J2270; J2370; J2405; J2704; J3010; J3370; J7030; J7040; J7050; J7120; U0003; U0005; 97110-GP; 97116-GP; 97530-GP; 97535-GO; 99285-25; G0378; J7613; J7626